=== PATIENT | male | born 1970 | race Caucasian/White ===

== ENCOUNTER → 2018-10-10 13:02 | Oncology outpatient (ONC) | payer MEDICARE, MEDICAID, SELFPAY ==
--- OUTSIDE RECORDS SUMMARY | 2018-10-04 15:38 | XMS_ITS | Referral Summary ---
:1970 Author Organization Formerly [facility] Address [address] [place] [address] Care Team Providers Name Role Phone Aileen Tapia Primary Care Provider Unavailable Reason for Referral Consultation (Routine) Status Reason Specialty Diagnoses / Referred By Referred To Procedures Contact Contact Authorized Specialty Oncology Diagnoses [facility] [address] [facility] [id number] [place], Phone: [place] [phone] Encounter Details Date Type Department Care Team Description 09/19/2018 Orders Only [facility] Aileen Tapia PA Polycythemia (Primary Clinics Family [address]) Medicine [address] [id number] Allergies No Known Allergiesas of this encounter Medications Prescription Sig. Disp. Refills Start Date End Date Status sulfamethoxazole-trime Take 1 tablet by 20 tablet 0 09/17/2018 09/27/2018 Active thoprim (BACTRIM mouth 2 (two) DS,SEPTRA DS) 800-160 times a day for mg 10 days as of this encounter Active Problems Problem Noted Date Loose body in elbow joint 02/11/2018 Cubital tunnel syndrome on left 02/11/2018 Lumbar radiculopathy 12/19/2016 Hand paresthesia 10/21/2015 Cervical radiculopathy 01/28/2014 Weakness 02/20/2013 Social History Tobacco Use Types Packs/Day Years Used Date Current Every Day Smoker 0.5 Smokeless Tobacco: Never Used Alcohol Use Drinks/Week oz/Week Comments Yes 2-3 drinks weekly Sex Assigned at Date Recorded Not on file as of this encounter Progress Notes Aileen Tapia PA - 09/19/2018 12:30 PM PSTPatient had wanted to be seen in [place]. Sent in referral for patient to be seen at [facility].in this encounter Plan of Treatment Scheduled Referrals Name Priority Associated Diagnoses Order Schedule XTRNL Referral to Oncology Routine Polycythemia Ordered: 09/19/2018 as of this encounter Visit Diagnoses Diagnosis Polycythemia - Primary Polycythemia, secondary Insurance Payer Benefit Plan / Group Subscriber ID Type Phone Address MEDICARE MEDICARE PART A AND B xxxxxxxxxx as of this encounter
--- NOTE | 2018-10-10 13:52 | ONC.CONS ---
History of Present Illness - Data of Consult Patient: new to practice Consult date: 10/10/18 Requesting Physician: Aileen Tapia PA-C Primary Care Provider: Aileen Tapia PA-C - Consult Narrative Reason for consult: Erythrocytosis Narrative: Sebastian Mercedes is a 48 year old male. He is disabled due to cervical rediculopathy. He also has lots of other medical problems including loose body in elbow joint, cubital tunnel syndrome on the left, lumbar radiculopathy. Patient admitted that he is a long-term smoker and is still smoking. He used to smoke 1 pack per day and for the past 6 months he has cut down to about half a pack per day. In addition patient has self-diagnosed himself as having sleep apnea syndrome. He said during the night, he sometimes wakes up gasping for air. Patient was found to have persistent erythrocytosis and was referred to [facility] for further evaluation. Patient admitted that he has been under lot of stress recently since his mother and grandfather because of cancer. He said his immediate family are all gone except his sister. Upon review of the medical records, patient was found to have an elevated red blood cell count starting November of 2017. His hemoglobin level has been fluctuating between 17 to 19.3, hematocrit level between 47.8-55.4. Patient's white blood cell counts and platelet counts have been normal except during episodes of gangrenous cholecystitis requiring urgent surgery in November of 2017. Recently patient has complained of some testicular pain presumably due to epididymitis and was treated with a brief course of antibiotics. Patient also complains of epigastric pain which he said has been present since after the surgery. He denies any nausea or vomiting. He denies any diarrhea or constipation. He denies any itching skin. He denies petechiae or bleeding events. On 09/17/2018, WBC 7.7, HGB 17.7, HCT 52.1, PLT 202, AST 50, ALT 76. Patient reports pain?: Yes Home Medications and Allergies Home Medications Medication Instructions Recorded Confirmed Type hydrocodone-acetaminophen 1 tab PO Q6H PRN 10/10/18 10/10/18 History Allergies Allergy/AdvReac Type Severity Reaction Status Date / Time No Known Drug Allergies Allergy Verified 10/10/18 15:24 Medical History - Medical, Surgical, Family History Medical History: Medical History (Last Updated 10/10/18 @ 14:10 by Vineet Ledesma MD) Smoking Surgical History: Surgical History (Last Updated 10/10/18 @ 15:21 by Vineet Ledesma MD) History of cholecystectomy - Social History Smoking Status: Current every day smoker Substance Use Type: marijuana Alcohol Intake: current Review of Systems All systems PM: reviewed and no additional remarkable complaints except as stated Exam Vital signs: Last Vital Signs Temp 98.8 F 10/10/18 13:57 Pulse 78 10/10/18 13:57 Resp 18 10/10/18 13:57 BP 124/51 L 10/10/18 13:57 Pulse Ox 96 10/10/18 13:57 ECOG 1 Narrative: Constitutional: obese, NAD, pleasant, and cooperative. HEENT: NCAT, EOMI, PERRLA, anicteric sclera, no hearing difficulty; Oral mucus membrane moist and without ulcers. Neck: Supple, symmetrical, and tracheal midline; No palpable thyromegaly and no palpable lymph nodes. Respiratory: No use of accessory muscles. Clear to auscultation, and no wheezes or rales or rubs. Cardiovascular: Regular rate and rhythm, S1 and S2 normal, no murmurs gallops or rubs. No JVD. No pitting edema of lower extremities. Abdomen: Soft, nontender, non-distended, bowel sounds normal, no palpable organomegaly, no hernia, no palpable masses. Lower extremities: No palpable pedal edema. Lymphatic: no palpable lymph nodes in the neck, axillae, or groins. Musculoskeletal: normal gait and station, no clubbing, no cyanosis, no pitting edema. Skin: no rashes, no ulcers, no petechiae Neurological: Awake and alert and oriented x3. CN II-XII grossly intact. No focal motor or sensory deficit. Psychiatric: Good judgment, good insight, normal affect, normal thought process, cooperative, no depression, no anxiety. Results - Labs Pending. Assessment and Plan (1) Erythrocytosis Patient has persistent mild erythrocytosis. Patient has a prolonged history of smoking and is still actively smoking. He is obese and most likely has sleep apnea problem. He wakes up at night often gasping for air. All above suggests that the patient may have secondary erythrocytosis as a result of chronic hypoxemia. In my opinion, primary hematological disorder is unlikely, but needs to be excluded, including P. Vera, and hemachromatosis etc. Plan: 1. CBC, CMP, Fe panel, Ferritin, Epo, TSH 2. RTC in one month
[2018-10-10 13:57] VITALS: BP 124/51; PULSE 78; RESP 18; TEMP 37.1; O2SAT 96
--- NOTE | 2018-10-10 14:39 | ONC.NAV ---
Description: New Pt Intro Activity: Met with pt to introduce myself as the Pt Zhang/PUNCH HAND, offer services card, and establish initial rapport. Pt is here today for his initial pt consultation visit with Dr. Ledesma due to abnormal labs drawn at his PCP's office. Pt presents as very agitated, stating immediately that Dr. Ledesma better be in here in 2-minutes, or I'm leaving. He proceeded to share that this last year his mother, grandmother and father all . He also had an emergency gall bladder surgery and had surgery for a broken elbow, all which happened around the same timing as the of his mother. After listening to his story, it became very apparent that pt was very fearful about the results of his blood tests, and was convinced that he may have cancer. He feels extremely angry, and in a final motion of exasperation, he shared that I haven't even buried any of them yet. PUNCH HAND provided a calming and attentive presence, reassuring him that we will be very honest with him and direct, as he is requesting. He was fearful of being lied to. He states that he is not sleeping, and is struggling to sleep due to waking up at times gasping and feeling that he is not able to breathe. As we were talking, Dr. Ledesma did come in and was ready for his provider appointment. This PUNCH HAND did go get pt a sandwich, as he had not eaten all day and felt this may be contributing to his feeling more intensely emotional and reactive. He was calming down by the time Dr. Ledesma came in. No immediate needs were identified for support at this time. Plan: Monitor for treatment plan and f/u needs.
--- NOTE | 2018-11-11 08:29 | ONC.SCHED ---
pt called to cancel appointment. He was absolutely rude and vulgar. Wanted his results read over the phone since he couldn't come in due to snow. I let him know I would be happy to ask Dr. Ledesma but could not promise he would do this as giving results over the phone was not clinic practice. The patient proceeded to yell at me wouldn't let me speak and finally asked that I fax the results over to his PCP Janny Tapia at [facility]. Called and spoke with Gladys and let her know I would be faxing his labs and to please call him. She said she would have someone do that.
--- NOTE | 2018-11-11 11:02 | ONC.SCHED ---
Patient called again and went off on another tangent. Patient called stating that Janny Tapia didn't have results. I let him know I spoke to Nadiya over there and verified fax number and let them know they were coming, I also had fax confirmation. Patient would not let me speak at all. Pavithra was up here at the time and could hear him continuing to talk without letting me get a word in. I finally interrupted him and told him I would take the results back to Dr. Ledesma but again could not guarantee a call back. Patient went off again to the point I finally told him I can't help him if he doesn't stop talking (in the most polite way I could).
--- NOTE | 2018-11-11 15:01 | ONC.NAV ---
Description: QMM-Difficult Patient Behavior Activity: Pt called several people in this clinic, was behaving very aggressively, emotionally volatile and irrational. KENO WRITER/RUNNER completed a QMM. Please direct all complaint phone calls to Gisselle Ayoub, Risk Management, should he call back.
--- NOTE | 2018-11-12 15:45 | PC.NURSE ---
Reviewed lab work from labs drawn 10/29. Pt was supposed to come to appt on 11/11 but was unable to make it due to snow and pt states I just have not been feeling well at all. Informed labs look unchanged from his previous labs but that he should still follow up with Dr Ledesma so Dr Ledesma can determine if he wants any further diagnostic testing done and/or come up with a plan. Offered to transfer pt to schedule an appt. Informed him it's not urgent and even next week would be fine. Pt states he will just call scheduling himself and make the appt.
== END ==
PROVIDERS: PCP Physician Assistant; Visit Provider Internal Medicine Hematology & Oncology
DX: D75.1 Secondary polycythemia (principal); E66.9 Obesity, unspecified; F17.210 Nicotine dependence, cigarettes, uncomplicated; M54.12 Radiculopathy, cervical region
CPT/HCPCS: 99204; 99214

== ENCOUNTER → 2018-10-29 15:03 | Outpatient (CLI) | payer MEDICARE, MEDICAID, SELFPAY ==
--- NOTE | 2018-10-29 15:12 | DI.MRI.S_ITS ---
PROCEDURE: MR CERVICAL SPINE WO CON INDICATIONS: SPINAL STENOSIS TECHNIQUE: Noncontrast sagittal T1 spin echo and T2 fast spin echo, sagittal STIR, foraminal oblique sagittal T2 fast spin echo, and axial gradient echo or T2 fast spin echo through the cervical spine. COMPARISON: [facility], MR, C-SPINE W&WO CONTRAST, 03/10/2013, 15:41. [facility], MR, C-SPINE WITHOUT CONTRAST, 01/01/2017, 13:07. FINDINGS: Image quality: Excellent. Alignment and Curvature: There is preserved bony alignment. Bone Marrow: Marrow demonstrates normal overall signal. Spinal Cord: Visualized spinal cord has normal size and signal. No cerebellar tonsillar herniation. Paraspinous Soft Tissues: No paravertebral masses. Prevertebral soft tissues are normal in thickness. C2-C3: Normal appearance. C3-C4: Preserved disc signal and disc height. There is minimal uncovertebral and facet joint arthropathy. No spinal canal narrowing. There is minimal right neuroforaminal narrowing. C4-C5: Minimal disc bulge with mild uncovertebral and facet joint arthropathy. There is associated minimal spinal canal narrowing with minimal bilateral neuroforaminal narrowing. C5-C6: Small posterior disc osteophyte complex with associated mild spinal canal narrowing. There is mild uncovertebral and facet joint arthropathy contributing to moderate bilateral neuroforaminal narrowing. The findings are similar to the prior study. C6-C7: Preserved disc signal and disc height. There is minimal uncovertebral and facet joint arthropathy. No spinal canal narrowing. There is minimal bilateral neuroforaminal narrowing. C7-T1: Normal appearance. IMPRESSION: 1. Multilevel degenerative changes redemonstrated most prominent at C5-C6 where there is mild spinal canal narrowing with moderate bilateral neuroforaminal narrowing. Findings are similar to the prior study. Dictated by: Blair Parker M.D. on 10/30/2018 at 10:52 Approved by: Blair Parker M.D. on 10/30/2018 at 11:02
[2018-10-29 15:46] LABS: Add Manual Diff / Slide Review NO; Basophils Absolute Auto 100 /uL (0-100); Basophils Percent Auto 0.9 % (0-2); Eosinophils Absolute Auto 300 /uL (0-450); Eosinophils Percent Auto 2.7 % (2-4); Hematocrit 51.2 % (41-53); Hemoglobin 17.2 g/dL (13.5-17.5); Lymphocytes Absolute Auto 3300 /uL (1100-4500); Lymphocytes Percent Auto 33.3 % (25-40); Mean Corpuscular HGB Conc 33.6 % (30-36); Mean Corpuscular Hemoglobin 32.1 PG (26-34); Mean Corpuscular Volume 95.6 fL (80-100); Monocytes Absolute Auto 800 /uL (0-900); Monocytes Percent Auto 8.3 % (3-14); Neutrophils Absolute Auto 5400 /uL (1500-7000); Neutrophils Percent Auto 54.8 % (50-75); Platelet Count 217 X10^3/uL (150-400); Red Blood Cell Count 5.36 X10^6/uL (4.5-5.9); Red Cell Distribution Width 12.3 % (11.6-14.8); White Blood Cell Count 9.9 X10^3/uL (4.5-11.0)
[2018-10-29 16:52] LABS: HEMOLYSIS < 15 (0-50); Iron 127 ug/dL (49-181)
[2018-10-29 17:03] LABS: Percent Iron Saturation 33 % (20-50); Total Iron Binding Capacity 390 ug/dL (261-462); Transferrin 327 mg/dL (206-381)
[2018-10-29 17:10] LABS: Alanine Aminotransferase 47 IU/L (21-72); Albumin 4.7 g/dL (3.5-5.0); Albumin Globulin Ratio 1.7 (1.0-2.8); Alkaline Phosphatase 55 U/L (38-126); Aspartate Aminotransferase 30 IU/L (17-59); BUN Creatinine Ratio 22.9 (6-22); Bilirubin Total 0.6 mg/dL (0.2-1.3); Blood Urea Nitrogen 16 mg/dL (9-20); Calcium 9.7 mg/dL (8.4-10.2); Carbon Dioxide 25 mmol/L (22-32); Chloride 104 mmol/L (98-107); Estimated Glomerular Filt Rate > 60.0 mL/min (>60); Globulin 2.8 g/dL (1.7-4.1); Glucose 95 mg/dL (70-100); HEMOLYSIS < 15 (0-50); Potassium 4.1 mmol/L (3.4-5.1); Sodium 140 mmol/L (137-145); Total Protein 7.5 g/dL (6.3-8.2)
== END ==
PROVIDERS: PCP Physician Assistant; Referring Provider Internal Medicine Hematology & Oncology; Visit Provider Physician Assistant
DX: M48.02 Spinal stenosis, cervical region (principal); M47.812 Spondylosis without myelopathy or radiculopathy, cervical region; D75.1 Secondary polycythemia
CPT/HCPCS: 36415; 72141; 80053; 82728; 83540; 83550; 85025

== ENCOUNTER → 2018-11-18 11:27 | Outpatient (CLI) | payer MEDICARE, MEDICAID, SELFPAY ==
--- NOTE | 2018-11-18 | DI.CT.S_ITS ---
PROCEDURE: CT CHEST WO CON INDICATIONS: PULMONARY NODULE TECHNIQUE: Noncontrast 2.0-2.5 mm thick sections acquired from the pulmonary apices to the posterior costophrenic angles. 7 mm thick coronal and sagittal MIP reformats were then acquired. A low radiation dose technique was utilized. COMPARISON: [facility], CT, PE STUDY (CTA CHEST), 11/15/2016, 15:47. [facility], CT, ABDOMEN/PELVIS WITH CONTRAST, 12/17/2017, 19:26. FINDINGS: Image quality: Diagnostic, given the low radiation dose technique. Lungs and pleura: The 7 mm nodule in the right middle lobe along the minor fissure appears unchanged (series 3 image 87). No pulmonary infiltrate or pleural effusion. Mediastinum: Heart size is normal. No pericardial effusion. There is coronary artery calcification. No mediastinal adenopathy by size criteria. Thoracic aorta and central pulmonary arteries are normal in size. Esophagus is normal in caliber. No hiatal hernia. Bones and chest wall: No suspicious bony lesions. No vertebral body compression fractures. No axillary or supraclavicular adenopathy by size criteria. Thyroid gland is normal. Abdomen: Visualized upper abdomen solid organs and bowel loops appear normal in the absence of contrast. IMPRESSION: 1. Stable subcentimeter nodule in the right middle lobe seen as 11/15/2016, compatible with a benign nodule. No additional followup is recommended. 2. Fleischner Society criteria for SOLID lung nodule followup. Nodule size (mm)Low-risk patientHigh-risk patient<6 (single or multiple)No routine followup.Optional CT at 12 months. 6-8 (single or multiple)CT at 6-12 months, then optional CT at 18-24 mo.CT at 6-12 months, then CT at 18-24 months. >8 (single)CT at 3 months, PET-CT, or biopsy. Same as for low-risk pts. >8 (multiple)CT at 3-6 months, then optional CT at 18-24 mo.CT at 3-6 months, then CT at 18-24 months. Recommendations do not apply to lung cancer screening, patients with immunosuppression, or patients with known primary cancer. Dictated by: Brooks Rasheed M.D. on 11/18/2018 at 15:28 Approved by: Brooks Rasheed M.D. on 11/18/2018 at 15:33
== END ==
PROVIDERS: PCP Physician Assistant; Visit Provider Physician Assistant
DX: R91.1 Solitary pulmonary nodule (principal)
CPT/HCPCS: 71250

== ENCOUNTER → 2019-03-13 11:48 | Outpatient (CLI) | payer MEDICARE, MEDICAID, SELFPAY ==
[2019-03-13 12:10] LABS: Add Manual Diff / Slide Review NO; Basophils Absolute Auto 100 /uL (0-100); Basophils Percent Auto 1.2 % (0-2); Eosinophils Absolute Auto 200 /uL (0-450); Eosinophils Percent Auto 4.3 % (2-4); Hematocrit 49.1 % (41-53); Lymphocytes Absolute Auto 2000 /uL (1100-4500); Lymphocytes Percent Auto 37.6 % (25-40); Mean Corpuscular HGB Conc 34.6 % (30-36); Mean Corpuscular Hemoglobin 32.1 PG (26-34); Mean Corpuscular Volume 92.7 fL (80-100); Monocytes Absolute Auto 600 /uL (0-900); Monocytes Percent Auto 10.6 % (3-14); Neutrophils Absolute Auto 2500 /uL (1500-7000); Neutrophils Percent Auto 46.3 % (50-75); Platelet Count 215 X10^3/uL (150-400); Red Cell Distribution Width 12.9 % (11.6-14.8); White Blood Cell Count 5.4 X10^3/uL (4.5-11.0)
[2019-03-13 12:43] LABS: HEMOLYSIS < 15 (0-50); Iron 114 ug/dL (49-181)
[2019-03-13 12:54] LABS: Percent Iron Saturation 30 % (20-50); Total Iron Binding Capacity 379 ug/dL (261-462); Transferrin 299 mg/dL (206-381)
[2019-03-13 14:49] LABS: Alanine Aminotransferase 36 IU/L (21-72); Albumin 4.4 g/dL (3.5-5.0); Albumin Globulin Ratio 1.6 (1.0-2.8); Alkaline Phosphatase 48 U/L (38-126); Aspartate Aminotransferase 28 IU/L (17-59); Bilirubin Total 0.6 mg/dL (0.2-1.3); Blood Urea Nitrogen 14 mg/dL (9-20); Calcium 9.7 mg/dL (8.4-10.2); Carbon Dioxide 24 mmol/L (22-32); Chloride 107 mmol/L (98-107); Estimated Glomerular Filt Rate > 60.0 mL/min (>60); Globulin 2.7 g/dL (1.7-4.1); Glucose 102 mg/dL (70-100); HEMOLYSIS 16 (0-50); Potassium 4.2 mmol/L (3.4-5.1); Sodium 139 mmol/L (137-145); Total Protein 7.1 g/dL (6.3-8.2)
== END ==
PROVIDERS: PCP Physician Assistant; Visit Provider Physician Assistant
DX: R79.89 Other specified abnormal findings of blood chemistry (principal); D58.2 Other hemoglobinopathies; R71.8 Other abnormality of red blood cells; D75.1 Secondary polycythemia
CPT/HCPCS: 36415; 80053; 82728; 83540; 83550; 85025

== ENCOUNTER → 2019-06-27 08:21 | Outpatient (CLI) | payer MEDICARE, MEDICAID, SELFPAY ==
[2019-06-27 09:56] LABS: Add Manual Diff / Slide Review NO; Basophils Absolute Auto 100 /uL (0-100); Basophils Percent Auto 0.9 % (0-2); Eosinophils Absolute Auto 200 /uL (0-450); Eosinophils Percent Auto 2.6 % (2-4); Hematocrit 49.4 % (41-53); Lymphocytes Absolute Auto 3600 /uL (1100-4500); Lymphocytes Percent Auto 38.3 % (25-40); Mean Corpuscular HGB Conc 34.5 % (30-36); Mean Corpuscular Hemoglobin 32.2 PG (26-34); Mean Corpuscular Volume 93.4 fL (80-100); Monocytes Absolute Auto 800 /uL (0-900); Monocytes Percent Auto 8.7 % (3-14); Neutrophils Absolute Auto 4700 /uL (1500-7000); Neutrophils Percent Auto 49.5 % (50-75); Platelet Count 222 X10^3/uL (150-400); Red Blood Cell Count 5.29 X10^6/uL (4.5-5.9); Red Cell Distribution Width 13.1 % (11.6-14.8); White Blood Cell Count 9.5 X10^3/uL (4.5-11.0)
[2019-06-27 10:22] LABS: Alanine Aminotransferase 35 IU/L (21-72); Albumin 4.7 g/dL (3.5-5.0); Albumin Globulin Ratio 1.7 (1.0-2.8); Alkaline Phosphatase 58 U/L (38-126); Amylase 71 U/L (30-110); Aspartate Aminotransferase 31 IU/L (17-59); BUN Creatinine Ratio 25.7 (6-22); Bilirubin Total 0.6 mg/dL (0.2-1.3); Blood Urea Nitrogen 18 mg/dL (9-20); Calcium 9.7 mg/dL (8.4-10.2); Carbon Dioxide 22 mmol/L (22-32); Chloride 105 mmol/L (98-107); Estimated Glomerular Filt Rate > 60.0 mL/min (>60); Globulin 2.8 g/dL (1.7-4.1); Glucose 134 mg/dL (70-100); HEMOLYSIS 17 (0-50); Lipase 328 U/L (23-300); Potassium 3.9 mmol/L (3.4-5.1); Sodium 139 mmol/L (137-145); Total Protein 7.5 g/dL (6.3-8.2)
== END ==
PROVIDERS: PCP Physician Assistant; Visit Provider Physician Assistant
DX: R10.11 Right upper quadrant pain (principal); N20.0 Calculus of kidney
CPT/HCPCS: 36415; 80053; 82150; 83690; 85025

== ENCOUNTER → 2019-07-03 07:40 | Outpatient (CLI) | payer MEDICARE, MEDICAID, SELFPAY ==
--- NOTE | 2019-07-03 | DI.US.S_ITS ---
PROCEDURE: US ABDOMEN COMPLETE INDICATIONS: RIGHT UPPER QUADRANT PAIN; HISTORY KIDNEY STONES TECHNIQUE: Real-time scanning was performed of the abdominal and retroperitoneal organs, with image documentation. COMPARISON: CT [facility] 10/26/2014. [facility], US, ABDOMEN COMPLETE, 02/28/2007, 12:31. FINDINGS: Liver: Prominent size. Diffusely mildly heterogeneous. Mildly increased in echogenicity. No focal lesion seen. Gallbladder: Surgically absent. Biliary ducts: Intrahepatic bile ducts are non-dilated. Extrahepatic bile duct caliber measures 8 mm. Normal is 6-7 mm or less in diameter, or 10 mm or less post-cholecystectomy. Pancreas: Visualized portions of the pancreas are sonographically normal. The tail was not well-seen. Spleen: Spleen is normal in size and homogeneous in echotexture. Measures 10.8 centers. Kidneys: Kidneys are normal in size and echotexture. Right kidney measures 12.2 cm long; left kidney measures 14.8 cm long. No hydronephrosis or nephrolithiasis. No solid masses. 2 simple cysts in the right kidney measuring up 1.8 cm and 1.7 cm. Aorta: Visualized aorta is normal in caliber at less than 3 cm. Iliacs: Proximal common iliac arteries are normal in caliber at less than 2.5 cm. IVC: Intrahepatic inferior vena cava is patent. Miscellaneous: No free abdominal fluid. Urinary bladder is unremarkable. Prevoid volume of 110 cc. Postvoid residual 0 cc. Bilateral ureteral jets seen. IMPRESSION: 1. No hydronephrosis. No kidney stones seen. 2. Normal urinary bladder. No postvoid residual. 3. Heterogeneous liver parenchyma could be seen in hepatocellular disease or steatosis. 4. No free fluid. Dictated by: Ruperto Dallas M.D. on 07/03/2019 at 10:18 Approved by: Ruperto Dallas M.D. on 07/03/2019 at 10:25
== END ==
PROVIDERS: PCP Physician Assistant; Visit Provider Physician Assistant
DX: R10.11 Right upper quadrant pain (principal); N28.1 Cyst of kidney, acquired; Z87.442 Personal history of urinary calculi
CPT/HCPCS: 76700

== ENCOUNTER 2019-11-01 10:12 | Emergency (ER) | payer MEDICARE, MEDICAID, SELFPAY ==
[2019-11-01 10:15] VITALS: BP 161/94; PULSE 167; RESP 20; O2SAT 96; BMI 29.5
[2019-11-01 10:20] VITALS: BP 161/94; PULSE 172; RESP 14; TEMP 36.3; O2SAT 97
--- NOTE | 2019-11-01 10:35 | ED_ITS ---
HPI - Arrhythmia/Palpitations General Chief Complaint: Arrhythmia/Palpitations Stated Complaint: states irregular heart beat Time Seen by Provider: 11/01/19 10:22 Source: patient Mode of arrival: Ambulatory Limitations: no limitations History of Present Illness HPI narrative: 49-year-old male here for evaluation of palpitations. Patient states that his symptoms started approximately 1.5 hours ago. He states that he was sitting on the couch at the time. Had just taken a drink and suddenly had the palpitations. States he does not feel well. No fevers. No chest pain. No lightheadedness. States that he potentially has had this type of symptom in the past but they resolved on their own. No prior history of atrial fibrillation. No abdominal pain. Related Data Home Medications Medication Instructions Recorded Confirmed hydrocodone-acetaminophen 1 tab PO Q6H PRN 10/10/18 10/10/18 Allergies Allergy/AdvReac Type Severity Reaction Status Date / Time No Known Drug Allergies Allergy Verified 10/10/18 15:24 Review of Systems Constitutional Constitutional: Denies fever(s) and Denies headache(s) ENT Ears, Nose, Mouth, and Throat: Denies headache(s) Cardiovascular Cardiovascular: Denies chest pain, Reports rapid heart rate, Denies leg edema, Denies lightheadedness, Reports palpitations and Denies dyspnea Respiratory Respiratory: Denies dyspnea Gastrointestinal Gastrointestinal: Denies abdominal pain, Denies nausea and Denies vomiting Genitourinary Genitourinary: Denies dysuria Musculoskeletal Musculoskeletal: Denies myalgias and Denies arthralgias Integumentary/Breasts Skin/Breast: Denies lesions and Denies rash Neurologic Neurologic: Denies behavioral changes and Denies headache(s) Psychiatric Psychiatric: Denies behavioral changes Endocrine Endocrine: Reports palpitations Hematologic/Lymphatic Hematologic/Lymphatic: Denies easy bleeding and Denies easy bruising Patient History Medical History Smoking (Acute) Surgical History (Updated 10/10/18 @ 15:21 by Vineet Ledesma MD) History of cholecystectomy (Acute) Social History Smoking Status: Current every day smoker alcohol intake: current substance use type: marijuana Smoking Status: Current every day smoker alcohol intake frequency: 0-2 drinks per day Substance Use Type: does not use Exam Initial Vital Signs Initial Vital Signs: Vital Signs Pulse Rate 167 H 11/01/19 10:15 Respiratory Rate 20 11/01/19 10:15 Blood Pressure 161/94 H 11/01/19 10:15 Pulse Oximetry 96 11/01/19 10:15 Const General: cooperative, comfortable, well developed and well groomed Limitations: mental status not altered HENMT Head: normal to inspection and normocephalic Resp Effort & Inspection: normal respiratory effort Auscultation: clear to auscultation bilaterally Cardio Rate: tachycardic Rhythm: abnormal rhythm Pulses: radial pulses present GI Inspection: non-distended Palpation: soft Skin Lesions: no lesions Rashes: no rashes Neuro General: alert, awake and oriented x3 Cognition: normal cognition Speech: speech normal Gait: normal gait Extrem General: normal to inspection and capillary refill normal Psych Appearance: grossly normal and well kempt Scores GCS [place] coma scale eye opening: Spontaneous [place] coma scale verbal response: Orientated [place] coma scale motor response: Obey commands [place] coma scale total score: 15 Course Orders Ordered: ED Orders 11/01/19 10:23 Complete Blood Count AUTO DIFF Stat Comprehensive Metabolic Panel Stat Partial Thromboplastin Time Stat Prothrombin Time INR Stat EKG-12 Lead Stat 11/01/19 10:36 RT Consult Eval and Treat Now 11/01/19 11:00 EKG-12 Lead Stat Sodium Chloride (Normal Saline 0.9%) 1,000 mls @ 125 mls/hr IV CONT STARLA Last Admin: 11/01/19 10:57 Dose: 125 mls/hr Documented by: NINI Discontinued Medications Fentanyl (Sublimaze) 50 mcg IV NOW ONE Stop: 11/01/19 10:36 Last Admin: 11/01/19 11:31 Dose: Not Given Documented by: BOB Propofol (Diprivan) 100 mg IV NOW ONE Stop: 11/01/19 10:36 Last Admin: 11/01/19 11:31 Dose: Not Given Documented by: BOB Vital Signs Vital signs: Vital Signs - 8 hr 11/01/19 10:15 11/01/19 10:20 11/01/19 10:37 Temperature 97.3 F L Pulse Rate 167 H 172 H 176 H Respiratory Rate 20 14 20 Blood Pressure 161/94 H Blood Pressure [Left Arm] 161/94 H 133/106 H Pulse Oximetry 96 97 96 11/01/19 11:20 Temperature Pulse Rate 83 Respiratory Rate 18 Blood Pressure Blood Pressure [Left Arm] 137/94 H Pulse Oximetry 95 MDM - Arrhythmia/Palpitations Lab Data Attestation: I reviewed the patient's lab results. Result diagrams: 11/01/19 10:23 11/01/19 10:23 Labs: Lab Results 11/01/19 11/01/19 11/01/19 Range/Units 10:23 10:23 10:23 WBC 8.2 (4.5-11.0) X10^3/uL RBC 5.50 (4.5-5.9) X10^6/uL Hgb 17.7 H (13.5-17.5) g/dL Hct 51.0 (41-53) % MCV 92.7 (80-100) fL MCH 32.2 (26-34) PG MCHC 34.7 (30-36) % RDW 12.9 (11.6-14.8) % Plt Count 204 (150-400) X10^3/uL Neut % (Auto) 42.2 L (50-75) % Lymph % (Auto) 43.1 H (25-40) % [place] % (Auto) 10.1 (3-14) % Eos % (Auto) 3.5 (2-4) % Baso % (Auto) 1.1 (0-2) % Neut # (Auto) 3500 (5349-0048) /uL Lymph # (Auto) 3500 (3500-6955) /uL [place] # (Auto) 800 (0-900) /uL Eos # (Auto) 300 (0-450) /uL Baso # (Auto) 100 (0-100) /uL PT 10.2 (10.1-12.7) SECONDS INR 0.9 (0.9-1.3) APTT 30 (26.4-36.2) SECONDS Sodium 137 (137-145) mmol/L Potassium 3.7 (3.4-5.1) mmol/L Chloride 106 (98-107) mmol/L Carbon Dioxide 19 L (22-32) mmol/L BUN 15 (9-20) mg/dL Creatinine 0.60 L (0.66-1.25) mg/dL Estimated GFR > 60.0 (>60) mL/min BUN/Creatinine Ratio 25.0 H (6-22) Glucose 132 H (70-100) mg/dL Calcium 9.5 (8.4-10.2) mg/dL Total Bilirubin 0.4 (0.2-1.3) mg/dL AST 38 (17-59) IU/L ALT 38 (<50) IU/L Alkaline Phosphatase 59 (38-126) U/L Total Protein 7.7 (6.3-8.2) g/dL Albumin 4.5 (3.5-5.0) g/dL Globulin 3.2 (1.7-4.1) g/dL Albumin/Globulin Ratio 1.4 (1.0-2.8) ECG Data Attestation: I personally reviewed and interpreted this ECG as follows: Prior ECG tracings: not available for review Interpretation: EKG upon arrival Atrial fibrillation Ventricular rate is 69 Normal axis Normal QRS Normal QTC Minimal ST depressions EKG timed 1102 hours Sinus rhythm Ventricular rate 86 Left axis deviation Normal QRS Normal QTC No ST T wave changes MDM Narrative Medical decision making narrative: Patient is AFib with RVR. Not hypotensive however symptomatic. Symptoms started approximately 2 hours ago. Had a discu ssion with him regarding options to include rate versus rhythm control. He opted on rhythm control. Consent was signed. Just prior to cardioversion patient converted on his own. Repeat EKG shows sinus rhythm. I do suspect that he has paroxysmal AFib. He states that he has had very similar symptoms of this in the past that has resolved on its own. He does have a primary doctor. We did discuss return precautions. He will follow-up with his primary doctor to discuss further workup to include a Holter monitor and/or cardiology referral. Patient expressed understanding and agreement with plan. Discharge Plan Departure Patient Disposition: Home Clinical Impression: Atrial fibrillation Qualifiers: Atrial fibrillation type: paroxysmal Qualified Code(s): I48.0 - Paroxysmal atrial fibrillation Instructions: DI for Atrial Fibrillation Activity Restrictions/Additional Instructions: Recommend that you talk with your primary provider about the indications for a Holter monitor and/or a referral to see Cardiology. Return to the emergency department for any new or worsening symptoms like we discussed. Prescriptions: No Action hydrocodone-acetaminophen tablet 1 tab PO Q6H PRN (Reason: Pain, Moderate) RF: 0 Referrals: Aileen Tapia PA-C [Primary Care Provider] -
[2019-11-01 10:37] VITALS: BP 133/106; PULSE 176; RESP 20; O2SAT 96
[2019-11-01 10:39] LABS: Add Manual Diff / Slide Review NO; Basophils Absolute Auto 100 /uL (0-100); Basophils Percent Auto 1.1 % (0-2); Eosinophils Absolute Auto 300 /uL (0-450); Eosinophils Percent Auto 3.5 % (2-4); Hemoglobin 17.7 g/dL (13.5-17.5); Lymphocytes Absolute Auto 3500 /uL (1100-4500); Lymphocytes Percent Auto 43.1 % (25-40); Mean Corpuscular HGB Conc 34.7 % (30-36); Mean Corpuscular Hemoglobin 32.2 PG (26-34); Mean Corpuscular Volume 92.7 fL (80-100); Monocytes Absolute Auto 800 /uL (0-900); Monocytes Percent Auto 10.1 % (3-14); Neutrophils Absolute Auto 3500 /uL (1500-7000); Neutrophils Percent Auto 42.2 % (50-75); Platelet Count 204 X10^3/uL (150-400); Red Cell Distribution Width 12.9 % (11.6-14.8); White Blood Cell Count 8.2 X10^3/uL (4.5-11.0)
[2019-11-01 10:48] LABS: PTT Partial Thromboplastin Tim 30 SECONDS (26.4-36.2)
[2019-11-01 10:52] LABS: INR 0.9 (0.9-1.3); Prothrombin Time 10.2 SECONDS (10.1-12.7)
[2019-11-01] MEDS: SODIUM CHLORIDE 0.9% 1,000 ML 125 ML IV (10:57)
[2019-11-01 11:06] LABS: Alanine Aminotransferase 38 IU/L (<50); Albumin 4.5 g/dL (3.5-5.0); Albumin Globulin Ratio 1.4 (1.0-2.8); Alkaline Phosphatase 59 U/L (38-126); Aspartate Aminotransferase 38 IU/L (17-59); Bilirubin Total 0.4 mg/dL (0.2-1.3); Blood Urea Nitrogen 15 mg/dL (9-20); Calcium 9.5 mg/dL (8.4-10.2); Carbon Dioxide 19 mmol/L (22-32); Chloride 106 mmol/L (98-107); Estimated Glomerular Filt Rate > 60.0 mL/min (>60); Globulin 3.2 g/dL (1.7-4.1); Glucose 132 mg/dL (70-100); HEMOLYSIS 25 (0-50); Potassium 3.7 mmol/L (3.4-5.1); Sodium 137 mmol/L (137-145); Total Protein 7.7 g/dL (6.3-8.2)
--- NOTE | 2019-11-01 11:14 | PC.NURSE ---
pt converted to a NSR, repeat EKG done. VSS. Dr. Garcia at bedside.
[2019-11-01 11:20] VITALS: BP 137/94; PULSE 83; RESP 18; O2SAT 95
[2019-11-01 12:01] VITALS: BP 125/89; PULSE 84; RESP 22; O2SAT 96
== END 2019-11-01 12:01 | disposition home or self-care (01) ==
PROVIDERS: Emergency Provider Emergency Medicine; PCP Physician Assistant
DX: I48.0 Paroxysmal atrial fibrillation (principal)
CPT/HCPCS: 36415; 80053; 85025; 85610; 85730; 93005; 96360; 99284; 99285

== ENCOUNTER 2019-12-18 01:58 | Emergency (ER) | payer MEDICARE, MEDICAID, SELFPAY ==
[2019-12-18 02:08] VITALS: BP 156/101; PULSE 76; RESP 18; TEMP 37.1; O2SAT 97
--- NOTE | 2019-12-18 02:12 | ED.ARRPALP ---
HPI - Arrhythmia/Palpitations General Chief Complaint: Arrhythmia/Palpitations Stated Complaint: pain in side of chest and arm/heart issues Time Seen by Provider: 12/18/19 02:12 Source: patient and old records reviewed Mode of arrival: Ambulatory Limitations: no limitations History of Present Illness HPI narrative: This is a 49-year-old male comes in with complaint of palpitations. Having discomfort in his left chest patient states palpitations have been intermittent. On November 01 he was diagnosed with AFib which converted to a normal sinus rhythm without intervention while he was in the department. Patient states since then he has occasionally had skipped beats. He states often frequent. He states sometimes he will feel little bit dizzy. Today he had chest pain on the left side and in the lymph node of his left elbow. He states he does have neck issues and isn't sure if this could be the cause as well. He did feel little short of breath. He has felt slightly nauseated times but no vomiting. He has not had any fevers, no cough cold or congestion. He has not been diaphoretic. He denies any issues with bowel movements, urination or swelling in his extremities. He denies any tremors or other changes. He states he was not started on any medications but referred to his primary care to get a referral to Cardiology. He does take amitriptyline daily but did not take his dose this evening and states his only surgery was for a gallbladder. He does smoke tobacco but states he is trying to decrease and states he has been decreasing his alcohol intake and was drinking half of a 5th daily but only had several sips today. He denies any illicit. He sees Dr. Serrato for his primary care. He states his grandmother had heart problems, his mother of brain cancer. Related Data Home Medications Medication Instructions Recorded Confirmed hydrocodone-acetaminophen 1 tab PO Q6H PRN 10/10/18 10/10/18 Allergies Allergy/AdvReac Type Severity Reaction Status Date / Time No Known Drug Allergies Allergy Verified 10/10/18 15:24 Review of Systems Review of Systems ROS Unobtainable: All systems reviewed & are unremarkable except as noted in HPI and below Patient History Medical History Smoking (Acute) Surgical History History of cholecystectomy (Acute) Social History Smoking Status: Current every day smoker alcohol intake: current substance use type: marijuana Smoking Status: Current every day smoker alcohol intake frequency: 0-2 drinks per day Substance Use Type: does not use Exam Narrative Exam Narrative: GENERAL: Alert and oriented x three, well-nourished male who appears mildly anxious. HEENT: Head normocephalic, atraumatic, EOMI, pupils reactive, face symmetric, moist mucous membranes NECK: Supple, full range of motion CARDIOVASCULAR: Regular rate and rhythm without murmurs, rubs or gallops. No rash or skin changes. 2+ pulses in upper and lower extremities. RESPIRATORY: Breath sounds equal bilaterally, no wheezes rales or rhonchi. ABDOMEN: Soft, nontender. Normoactive bowel sounds all 4 quadrants. No guarding or rebound, rigidity, no mass : No CVA tenderness EXTREMITIES: Normal range of motion, no clubbing or edema. Neurovascularly intact NEUROLOGICAL: Cranial nerves II through XII grossly intact. Moving all extremities SKIN: Warm, dry, no petechiae, no rashes or lesions. Initial Vital Signs Initial Vital Signs: Vital Signs Temperature 98.8 F 12/18/19 02:08 Pulse Rate 76 12/18/19 02:08 Respiratory Rate 18 12/18/19 02:08 Blood Pressure 156/101 H 12/18/19 02:08 Pulse Oximetry 97 12/18/19 02:08 Scores HEART Score Heart Score history: Slightly Suspicious Heart Score EKG: Non-Specific repolarization disturbance Heart Score Age: 45-64 years old Heart Score risk factors: No known risk factors Heart Score troponin: < or = to normal limit Heart Score Total: 2 Course Orders Ordered: ED Orders 12/18/19 EKG-12 Lead Stat 12/18/19 02:05 Basic Metabolic Panel Stat Complete Blood Count AUTO DIFF Stat Magnesium Stat Thyroid Stimulating Hormone Stat Troponin & CK Cardiac Panel Stat 12/18/19 02:24 XR chest 1V Stat 12/18/19 04:00 Troponin & CK Cardiac Panel Stat Discontinued Medications Aspirin (Aspirin Chew) 324 mg PO NOW ONE Stop: 12/18/19 02:26 Last Admin: 12/18/19 02:29 Dose: 324 mg [facility] Vital Signs Vital signs: Vital Signs - 8 hr 12/18/19 02:08 12/18/19 03:00 12/18/19 03:30 Temperature 98.8 F Pulse Rate 76 64 58 L Respiratory Rate 18 12 13 Blood Pressure 156/101 H Blood Pressure [Right Arm] 126/82 121/80 Pulse Oximetry 97 98 94 MDM - Arrhythmia/Palpitations Lab Data Attestation: I reviewed the patient's lab results. Result diagrams: 12/18/19 02:05 12/18/19 02:05 Labs: Lab Results 12/18/19 12/18/19 12/18/19 Range/Units 02:05 02:05 02:05 WBC 8.7 (4.5-11.0) X10^3/uL RBC 5.36 (4.5-5.9) X10^6/uL Hgb 17.0 (13.5-17.5) g/dL Hct 49.6 (41-53) % MCV 92.4 (80-100) fL MCH 31.6 (26-34) PG MCHC 34.2 (30-36) % RDW 12.5 (11.6-14.8) % Plt Count 243 (150-400) X10^3/uL Neut % (Auto) 45.2 L (50-75) % Lymph % (Auto) 39.1 (25-40) % [place] % (Auto) 11.0 (3-14) % Eos % (Auto) 3.4 (2-4) % Baso % (Auto) 1.3 (0-2) % Neut # (Auto) 3900 (2947-0479) /uL Lymph # (Auto) 3400 (0151-1983) /uL [place] # (Auto) 1000 H (0-900) /uL Eos # (Auto) 300 (0-450) /uL Baso # (Auto) 100 (0-100) /uL Sodium 136 L (137-145) mmol/L Potassium 4.0 (3.4-5.1) mmol/L Chloride 105 (98-107) mmol/L Carbon Dioxide 23 (22-32) mmol/L BUN 14 (9-20) mg/dL Creatinine 0.77 (0.66-1.25) mg/dL Estimated GFR > 60.0 (>60) mL/min BUN/Creatinine Ratio 18.2 (6-22) Glucose 105 H (70-100) mg/dL Calcium 10.1 (8.4-10.2) mg/dL Magnesium 2.3 (1.6-2.3) mg/dL Total Creatine Kinase 52 L (55-170) U/L CK-MB (CK-2) TNP CK-MB (CK-2) Rel Index TNP Troponin I < 0.012 (0.01-0.034) ng/mL TSH 5.39 H (0.47-4.68) uIU/mL 12/18/19 Range/Units 04:00 WBC (4.5-11.0) X10^3/uL RBC (4.5-5.9) X10^6/uL Hgb (13.5-17.5) g/dL Hct (41-53) % MCV (80-100) fL MCH (26-34) PG MCHC (30-36) % RDW (11.6-14.8) % Plt Count (150-400) X10^3/uL Neut % (Auto) (50-75) % Lymph % (Auto) (25-40) % [place] % (Auto) (3-14) % Eos % (Auto) (2-4) % Baso % (Auto) (0-2) % Neut # (Auto) (2901-8178) /uL Lymph # (Auto) (2146-8600) /uL [place] # (Auto) (0-900) /uL Eos # (Auto) (0-450) /uL Baso # (Auto) (0-100) /uL Sodium (137-145) mmol/L Potassium (3.4-5.1) mmol/L Chloride (98-107) mmol/L Carbon Dioxide (22-32) mmol/L BUN (9-20) mg/dL Creatinine (0.66-1.25) mg/dL Estimated GFR (>60) mL/min BUN/Creatinine Ratio (6-22) Glucose (70-100) mg/dL Calcium (8.4-10.2) mg/dL Magnesium (1.6-2.3) mg/dL Total Creatine Kinase 42 L (55-170) U/L CK-MB (CK-2) TNP CK-MB (CK-2) Rel Index TNP Troponin I < 0.012 (0.01-0.034) ng/mL TSH (0.47-4.68) uIU/mL Imaging Data Chest x-ray: Attestation: I personally reviewed and interpreted this imaging study as follows: My Impression: nap, no infiltrate, no cardiomegaly, normal mediastinum, no pneumothorax, no fractures. ECG Data Attestation: I personally reviewed and interpreted this ECG as follows: Prior ECG tracings: available for review Interpretation: Sinus rhythm incomplete right bundle-branch, rate 69, DE 166, QRS of 92 and QTC of 424. No ST elevation or depression noted. Patient has EKG from 11/01/2019 that appears similar after patient had cardioverted from AFib rhythm. EKG 2. Shows sinus rhythm with a rate of 65, DE 158, QRS of 94 and QTC of 438. No ST elevation depression. Patient has some motion artifact in V3. Appears similar to priors. MDM Narrative Medical decision making narrative: 49-year-old male comes in with palpitations and chest pain. Patient was seen November 01 with atrial fibrillation that resolved prior to intervention emergency department. It was captured on EKG. Patient has not had any episodes of atrial fibrillation in the department. He describes very short episodes of palpitations but did develop left chest pain and what he describes as pain in the lymph node of his left elbow. Heart score is 2, patient has a primary care but has not set up follow-up secondary to transportation issues. Was given a referral to Cardiology discussed that they do have an office in [place] that they can potentially follow with. He has been decreasing his alcohol intake since his diagnosis of atrial fibrillation but does not have any signs of withdrawal. Troponin x2 as well as EKG do not show acute findings. No other major lab abnormalities. Chest x-ray is negative. Discussed with patient return precautions and reasons for follow-up. Discharge Plan Departure Patient Disposition: Home Clinical Impression: Palpitations Instructions: DI for Arrhythmias Activity Restrictions/Additional Instructions: Follow-up for further evaluation Holter monitor. Your primary care physician can order the Holter monitor while waiting to see Cardiology. Included is also a referral for Cardiology. Call for follow-up. They do have a clinic in [place] and [facility]. Continue home medication as prescribed. Return to the ER for recurrent symptoms, new chest pain, shortness of breath, prolonged or elevated heart rate/palpitations, passing out, persistent vomiting, swelling in her extremities or other new or concerning symptoms. Prescriptions: No Action hydrocodone-acetaminophen tablet 1 tab PO Q6H PRN (Reason: Pain, Moderate) RF: 0 Referrals: Jace Thomas MD [Physician] - Aileen Tapia PA-C [Primary Care Provider] -
--- NOTE | 2019-12-18 02:24 | DI.RAD.S_ITS ---
PROCEDURE: XR CHEST 1V INDICATIONS: palpitations, chest pain TECHNIQUE: One view of the chest was acquired. COMPARISON: [facility], CT, CT CHEST WO CON, 11/18/2018, 11:27. [facility], CR, CHEST 1 VIEW, 11/15/2016, 15:35. FINDINGS: Surgical changes and devices: None. Lungs and pleura: Lungs are clear. No pleural effusions or pneumothorax. Mediastinum: Mediastinal contours appear normal. Heart size is normal. Bones and chest wall: No suspicious bony lesions. Overlying soft tissues appear unremarkable. IMPRESSION: No acute cardiopulmonary disease. Dictated by: Brooks Rasheed M.D. on 12/18/2019 at 8:18 Approved by: Brooks Rasheed M.D. on 12/18/2019 at 8:19
[2019-12-18] MEDS: ASPIRIN 81 MG CHEW TAB 324 MG PO (02:29)
[2019-12-18 02:37] LABS: Add Manual Diff / Slide Review NO; Basophils Absolute Auto 100 /uL (0-100); Basophils Percent Auto 1.3 % (0-2); Eosinophils Absolute Auto 300 /uL (0-450); Eosinophils Percent Auto 3.4 % (2-4); Hematocrit 49.6 % (41-53); Lymphocytes Absolute Auto 3400 /uL (1100-4500); Lymphocytes Percent Auto 39.1 % (25-40); Mean Corpuscular HGB Conc 34.2 % (30-36); Mean Corpuscular Hemoglobin 31.6 PG (26-34); Mean Corpuscular Volume 92.4 fL (80-100); Monocytes Absolute Auto 1000 /uL (0-900); Neutrophils Absolute Auto 3900 /uL (1500-7000); Neutrophils Percent Auto 45.2 % (50-75); Platelet Count 243 X10^3/uL (150-400); Red Blood Cell Count 5.36 X10^6/uL (4.5-5.9); Red Cell Distribution Width 12.5 % (11.6-14.8); White Blood Cell Count 8.7 X10^3/uL (4.5-11.0)
[2019-12-18 02:48] LABS: BUN Creatinine Ratio 18.2 (6-22); Blood Urea Nitrogen 14 mg/dL (9-20); Calcium 10.1 mg/dL (8.4-10.2); Carbon Dioxide 23 mmol/L (22-32); Chloride 105 mmol/L (98-107); Creatine Kinase 52 U/L (55-170); Estimated Glomerular Filt Rate > 60.0 mL/min (>60); Glucose 105 mg/dL (70-100); HEMOLYSIS < 15 (0-50); Magnesium 2.3 mg/dL (1.6-2.3); Sodium 136 mmol/L (137-145)
[2019-12-18 03:00] VITALS: BP 126/82; PULSE 64; RESP 12; O2SAT 98
[2019-12-18 03:00] LABS: Troponin I < 0.012 ng/mL (0.01-0.034)
[2019-12-18 03:19] LABS: Thyroid Stimulating Hormone 5.39 uIU/mL (0.47-4.68)
[2019-12-18 03:30] VITALS: BP 121/80; PULSE 58; RESP 13; O2SAT 94
[2019-12-18 04:22] LABS: Creatine Kinase 42 U/L (55-170)
[2019-12-18 04:35] LABS: Troponin I < 0.012 ng/mL (0.01-0.034)
[2019-12-18 05:08] VITALS: BP 127/82; PULSE 68; RESP 20; O2SAT 99
== END 2019-12-18 05:09 | disposition home or self-care (01) ==
PROVIDERS: Emergency Provider Emergency Medicine; PCP Physician Assistant
DX: R00.2 Palpitations (principal); R07.9 Chest pain, unspecified; I48.91 Unspecified atrial fibrillation
CPT/HCPCS: 36415; 71045; 80048; 82550; 83735; 84443; 84484; 85025; 93005; 99284; 99285

== ENCOUNTER → 2020-03-10 09:00 | Outpatient (CLI) | payer MEDICARE, MEDICAID, SELFPAY ==
--- NOTE | 2020-03-10 | DI.ECHO.S_ITS ---
[facility] +---------+ : : [address] [place] : : : : [id number] : : : : Phone: [phone] Echocardiogram Report + + :Name: RULA MCMAHON Study Date: 03/10/2020 Height: 73 in : :[facility] Weight: 227 lb : : Gender: Male BSA: 2.3 m2 : :: 1970 Age: 50 yrs BP: 152/80 mmHg: :Reason For Study: Atrial Fibrillation : :Ordering Physician: Srinivasan Thao : :[place] Performed By: Helena Lamar : :Referring: SRINIVASAN VIVAR : + + Interpretation Summary 1) Normal left ventricular size, wall motion, and systolic function (EF 60- 65%). 2) Normal right ventricular size and function. 3) No significant valvular abnormalities. 4) Sinus rhythm present during the study. 5) No prior Echo available for comparison. Procedure: A two-dimensional transthoracic echocardiogram with color flow and Doppler was performed. The study quality was technically adequate. There is no prior echocardiogram noted for this patient. The patient was in sinus bradycardia with heart rates between 50-60 bpm during the exam. Left Ventricle: The left ventricle is normal in size. Left ventricular wall thickness is at the upper limits of normal. The ejection fraction is estimated to be 60-65%. Left ventricular global longitudinal strain average is -22.9%. Left ventricular systolic function is normal without focal wall motion abnormalities. Right Ventricle: The right ventricle is normal in size and function. Atria: Both atria are normal in size. There is no Doppler evidence for an interatrial shunt. Mitral Valve: The mitral valve is normal in structure and function. There is trace mitral regurgitation. Aortic Valve: The aortic valve is trileaflet. The aortic valve opens well. There is no aortic valve stenosis. No aortic regurgitation is present. Tricuspid Valve: The tricuspid valve is normal in structure and function. Pulmonary artery pressures cannot be estimated because of the lack of a measurable TR jet velocity but the IVC suggests a CVP of around 3 mmHg. There is a trace or physiologic amount of tricuspid regurgitation. Pulmonic Valve: The pulmonic valve is not well seen, but is grossly normal. There is mild pulmonic regurgitation. Great Vessels: The aortic root is normal size. The ascending aorta could not be visualized. The IVC is of normal diameter and collapses greater than 50% with a sniff. This suggests a low right atrial pressure of 3 mm Hg. Pericardium/ Pleura There is an anterior echo-free space consistent with a fat pad. There is no pericardial effusion. There is no pleural effusion. MMode/2D Measurements & Calculations LVIDd: 5.4 cm LVOT diam: 2.3 cm LVIDs: 3.5 cm Ao root diam: 3.5 cm FS: 35.3 % Ao Arch Diam (Prox Trans): 3.4 cm IVSd: 0.97 cm LVPWd: 1.1 cm LV barrios. diameter/BSA (cm/m^2): 2.4 LV sys. diameter/BSA (cm/m^2): 1.5 LA A2 area: 19.0 cm2 RA long axis: 5.5 cm LA A4 area: 15.3 cm2 RA area: 18.3 cm2 LA length (vol): 5.0 cm RA vol: 51.7 ml LA vol: 49.6 ml RA : 22.8 ml/m2 LA vol index: 21.8 ml/m2 IVC diam: 1.4 cm RVD1 (basal): 3.6 cm TAPSE: 2.4 cm Doppler Measurements & Calculations Ao V2 max: 109.6 cm/sec LVOT Max Fabrice: 98.1 cm/sec Ao V2 mean: 71.3 cm/sec LV V1 max P.8 mmHg Ao max P.8 mmHg LV V1 VTI: 20.4 cm Ao mean P.4 mmHg FAINA(I,D): 3.9 cm2 Ao V2 VTI: 22.0 cm FAINA(V,D): 3.8 cm2 sev ratio: 0.93 FAINA indexed to BSA (cm^2/m^2): 1.7 MV E max fabrice: 74.4 cm/sec PA V2 max: 73.5 cm/sec MV A max fabrice: 45.9 cm/sec PA V2 mean: 46.8 cm/sec MV E/A: 1.6 PA mean P.1 mmHg Med Peak E' Fabrice: 8.9 cm/sec E/E' med: 8.4 Lat Peak E' Fabrice: 10.7 cm/sec E/E' lat: 6.9 E/e' average: 7.7 MV dec time: 0.23 sec SV(LVOT): 86.1 ml Reading Physician:01:22 PM
== END ==
PROVIDERS: PCP Physician Assistant; Referring Provider Internal Medicine Cardiovascular Disease; Visit Provider Internal Medicine Cardiovascular Disease
DX: I37.1 Nonrheumatic pulmonary valve insufficiency (principal); I48.0 Paroxysmal atrial fibrillation
CPT/HCPCS: 93306

== ENCOUNTER → 2020-05-07 12:56 | Outpatient (CLI) | payer MEDICARE, MEDICAID, SELFPAY ==
[2020-05-07 14:30] LABS: Cholesterol 206 mg/dL (140-199); HDL Cholesterol 45 mg/dL (40-60); LDL Cholesterol Calculated 110 mg/dL (<100); Triglycerides 255 mg/dL (35-150)
== END ==
PROVIDERS: PCP Physician Assistant; Referring Provider Internal Medicine Cardiovascular Disease; Visit Provider Internal Medicine Cardiovascular Disease
DX: I10 Essential (primary) hypertension (principal)
CPT/HCPCS: 36415; 80061

== ENCOUNTER → 2020-05-20 15:21 | Outpatient (CLI) | payer MEDICARE, MEDICAID, SELFPAY ==
[2020-05-21 13:52] LABS: COVID19 Sendout Not Detected (Not Detect)
== END ==
PROVIDERS: PCP Physician Assistant; Visit Provider Physician Assistant
DX: Z11.59 Encounter for screening for other viral diseases (principal)
CPT/HCPCS: 87635

== ENCOUNTER 2020-08-03 08:24 | Emergency (ER) | payer MEDICARE, MEDICAID, SELFPAY ==
[2020-08-03] VITALS (7 sets, daily range): BP systolic 141–187; BP diastolic 92–110; PULSE 64–74; RESP 12–29; TEMP 36.3; O2SAT 94–99; BMI 29.5
--- NOTE | 2020-08-03 08:32 | ED_ITS ---
HPI - Abdominal Pain General Chief Complaint: Abdominal Pain Stated Complaint: abdominal pain,right side Time Seen by Provider: 08/03/20 08:32 History of Present Illness HPI narrative: 50-year-old gentleman with a history of atrial fibrillation and prior renal stones presents with acute right lower quadrant pain sharp and severe onset 1 hour prior to arrival. He was hurting so much that he was having trouble even keeping his eyes opening or participating in any type of history of physical. No diaphoresis or vomiting. Does note that over the last 3 weeks he has been fatigued, mildly nauseated and also complains of multiple arthralgias all of which seem to have improved over the last couple of days. He reports no recent palpitations, chest pain, dyspnea, diarrhea. Related Data Home Medications Medication Instructions Recorded Confirmed hydrocodone-acetaminophen 1 tab PO Q6H PRN 10/10/18 10/10/18 amitriptyline 10 mg tablet 10 mg PO DAILY PRN tab 05/06/20 05/06/20 diltiazem HCl 180 mg 180 mg PO DAILY 05/06/20 05/06/20 capsule,extended release 24 hr Previous Rx's Medication Instructions Recorded oxycodone-acetaminophen 1 tab PO Q8H PRN #10 tab 08/03/20 Allergies Allergy/AdvReac Type Severity Reaction Status Date / Time No Known Drug Allergies Allergy Verified 08/03/20 08:36 Review of Systems Review of Systems Narrative: Remainder of review of systems including constitutional, ENT, cardiovascular, respiratory, GI, , musculoskeletal, skin, neurologic and psychiatric systems reviewed and are unremarkable except as noted in HPI. Patient History Medical History Breathing-related sleep disorder (Acute) Erythrocytosis (Acute) Paroxysmal atrial fibrillation (Acute) Smoking (Acute) Ureterolithiasis (Acute) Surgical History History of cholecystectomy (Acute) Family History Family/Other Loud snoring Obesity Hypertension Heart disease Depression Anxiety Father Alcohol abuse Mother Loud snoring Sleep apnea Obesity Hypertension Diabetes mellitus Depression Anxiety Alcohol abuse Family/Other Depression Anxiety Social History Smoking Status: Current every day smoker alcohol intake: current substance use type: marijuana Smoking Status: Current every day smoker alcohol intake frequency: 0-2 drinks per day Substance Use Type: does not use Exam Narrative Exam Narrative: General: Severe distress with right lower quadrant and right flank pain. Well-nourished well-developed HEENT: Moist mucous membranes, normal sclera with reactive pupils, Neck: No JVD, supple Respiratory: Lungs are clear to auscultation, no wheezing no rales no rhonchi. Full and symmetrical air movement Cardiac: Regular rate and rhythm no murmurs no bruits Abdomen: Soft , right flank pain, right lower quadrant pain without rebound or guarding Skin: Warm and dry, no rashes Neurologic: Grossly neurologically intact with no obvious asymmetries or abnormalities Extremities: No trauma, well perfused Psych: Cooperative, appropriate insight and affect Initial Vital Signs Initial Vital Signs: Vital Signs Temperature 97.3 F L 08/03/20 08:34 Pulse Rate 66 08/03/20 08:34 Respiratory Rate 12 08/03/20 08:34 Blood Pressure 187/110 H 08/03/20 08:34 Pulse Oximetry 99 08/03/20 08:34 Course Orders Ordered: ED Orders 08/03/20 08:32 Complete Blood Count AUTO DIFF Stat Comprehensive Metabolic Panel Stat Lipase Stat Troponin I Stat 08/03/20 08:37 EKG-12 Lead Stat 08/03/20 09:14 CT kidney ureter bladder (KUB) Stat 08/03/20 10:34 Urinalysis and Microscopic Stat Hydromorphone HCl (Dilaudid) 0.5 mg IV Q15MIN PRN PRN Reason: Pain, Last Admin: 08/03/20 09:56 Dose: 0.5 mg Documented by: Admin: 08/03/20 09:14 Dose: 0.5 mg Documented by: GONZALEZ Discontinued Medications Sodium Chloride (Normal Saline 0.9%) 1,000 mls @ 1,000 mls/hr IV BOLUS ONE Stop: 08/03/20 09:35 Last Infusion: 08/03/20 09:53 Dose: 0 mls/hr Documented by: Admin: 08/03/20 08:44 Dose: 1,000 mls/hr Documented by: GONZALEZ Ketorolac Tromethamine (Toradol) 15 mg IV NOW ONE Stop: 08/03/20 08:37 Last Admin: 08/03/20 08:44 Dose: 15 mg Documented by: GONZALEZ Ondansetron HCl (Zofran) 4 mg IV NOW ONE Stop: 08/03/20 08:46 Last Admin: 08/03/20 08:48 Dose: 4 mg Documented by: GONZALEZ Oxycodone/Acetaminophen (Percocet 5/325) 1 tab PO NOW ONE Stop: 08/03/20 11:15 Vital Signs Vital signs: Vital Signs - 8 hr 08/03/20 08:34 Temperature 97.3 F L Pulse Rate 66 Respiratory Rate 12 Blood Pressure 187/110 H Pulse Oximetry 99 MDM - Abdominal Pain Medical Records Attestation: I reviewed the patient's medical records. Lab Data Attestation: I reviewed the patient's lab results. Result diagrams: 08/03/20 08:32 08/03/20 08:32 Labs: Lab Results 08/03/20 08/03/20 08/03/20 Range/Units 08:32 08:32 08:32 WBC 8.1 (4.5-11.0) X10^3/uL RBC 5.41 (4.5-5.9) X10^6/uL Hgb 17.2 (13.5-17.5) g/dL Hct 50.0 (41-53) % MCV 92.4 (80-100) fL MCH 31.7 (26-34) PG MCHC 34.3 (30-36) % RDW 13.2 (11.6-14.8) % Plt Count 213 (150-400) X10^3/uL Neut % (Auto) 47.5 L (50-75) % Lymph % (Auto) 37.3 (25-40) % Caroline % (Auto) 11.3 (3-14) % Eos % (Auto) 2.7 (2-4) % Baso % (Auto) 1.2 (0-2) % Neut # (Auto) 3900 (8471-7656) /uL Lymph # (Auto) 3000 (6170-3730) /uL Caroline # (Auto) 900 (0-900) /uL Eos # (Auto) 200 (0-450) /uL Baso # (Auto) 100 (0-100) /uL Sodium 137 (137-145) mmol/L Potassium 3.6 (3.4-5.1) mmol/L Chloride 106 (98-107) mmol/L Carbon Dioxide 23 (22-32) mmol/L BUN 15 (9-20) mg/dL Creatinine 0.72 (0.66-1.25) mg/dL Estimated GFR > 60.0 (>60) mL/min BUN/Creatinine Ratio 20.8 (6-22) Glucose 139 H (70-100) mg/dL Calcium 9.2 (8.4-10.2) mg/dL Total Bilirubin 0.6 (0.2-1.3) mg/dL AST 30 (17-59) IU/L ALT 29 (<50) IU/L Alkaline Phosphatase 60 (38-126) U/L Troponin I < 0.012 (0.01-0.034) ng/mL Total Protein 7.7 (6.3-8.2) g/dL Albumin 4.6 (3.5-5.0) g/dL Globulin 3.1 (1.7-4.1) g/dL Albumin/Globulin Ratio 1.5 (1.0-2.8) Lipase 217 (23-300) U/L Urine Color Urine Appearance Urine pH (4.5-8.0) Ur Specific [place] (1.000-1.035) Urine Protein (Negative) Urine Glucose (UA) (Negative) g/dL Urine Ketones (NEGATIVE) Urine Occult Blood (Negative) Urine Nitrate (Negative) Urine Bilirubin (NEGATIVE) Urine Urobilinogen (0.2) E.U./dL Ur Leukocyte Esterase (NEGATIVE) Urine RBC (0-5/HPF) Urine WBC (0-5/HPF) Ur Squamous Epith Cells (0-5/HPF) Urine Bacteria (None) Urine Mucus (Negative) Ur Culture Indicated? 08/03/20 Range/Units 10:34 WBC (4.5-11.0) X10^3/uL RBC (4.5-5.9) X10^6/uL Hgb (13.5-17.5) g/dL Hct (41-53) % MCV (80-100) fL MCH (26-34) PG MCHC (30-36) % RDW (11.6-14.8) % Plt Count (150-400) X10^3/uL Neut % (Auto) (50-75) % Lymph % (Auto) (25-40) % Caroline % (Auto) (3-14) % Eos % (Auto) (2-4) % Baso % (Auto) (0-2) % Neut # (Auto) (8024-7998) /uL Lymph # (Auto) (5205-4765) /uL Caroline # (Auto) (0-900) /uL Eos # (Auto) (0-450) /uL Baso # (Auto) (0-100) /uL Sodium (137-145) mmol/L Potassium (3.4-5.1) mmol/L Chloride (98-107) mmol/L Carbon Dioxide (22-32) mmol/L BUN (9-20) mg/dL Creatinine (0.66-1.25) mg/dL Estimated GFR (>60) mL/min BUN/Creatinine Ratio (6-22) Glucose (70-100) mg/dL Calcium (8.4-10.2) mg/dL Total Bilirubin (0.2-1.3) mg/dL AST (17-59) IU/L ALT (<50) IU/L Alkaline Phosphatase (38-126) U/L Troponin I (0.01-0.034) ng/mL Total Protein (6.3-8.2) g/dL Albumin (3.5-5.0) g/dL Globulin (1.7-4.1) g/dL Albumin/Globulin Ratio (1.0-2.8) Lipase (23-300) U/L Urine Color Yellow Urine Appearance Clear Urine pH 6.0 (4.5-8.0) Ur Specific [place] 1.020 (1.000-1.035) Urine Protein Negative (Negative) Urine Glucose (UA) Negative (Negative) g/dL Urine Ketones Trace H (NEGATIVE) Urine Occult Blood 3+ H (Negative) Urine Nitrate Negative (Negative) Urine Bilirubin Negative (NEGATIVE) Urine Urobilinogen 0.2 (0.2) E.U./dL Ur Leukocyte Esterase Negative (NEGATIVE) Urine RBC 10-30/hpf H (0-5/HPF) Urine WBC None seen (0-5/HPF) Ur Squamous Epith Cells 1-5 /hpf (0-5/HPF) Urine Bacteria None seen (None) Urine Mucus 2+ H (Negative) Ur Culture Indicated? Cult not indicated Imaging Data CT scan - abdomen/pelvis: Radiologist's Impression: FINDINGS: Image quality: Excellent. Lung bases: Lung bases are clear. Heart size is normal. Urinary system: Both kidneys are normal in size. There is a 2 mm nonobstructing left nephrolith. No right-sided nephroliths. There is mild right hydroureter with associated periureteral stranding. There is a 2 mm calculus noted in the dependent portion of the urinary bladder on the right, immediately adjacent to the right ureteral vesicular junction. No left-sided hydronephrosis or perinephric fat stranding. Left ureter appears non-dilated throughout its expected course. Bladder wall thickness is normal for degree of distension. Bilateral renal hypodensities compatible with renal cysts. Other solid organs: Liver is normal in size. Gallbladder is surgically absent. Pancreas is normal in contours. Spleen is normal in size. No adrenal nodules. Peritoneum and bowel: Unenhanced bowel loops demonstrate normal wall thickness and caliber. Normal appendix. No free fluid or air. Nodes and vessels: No retroperitoneal or mesenteric adenopathy by size criteria. Aorta and inferior vena cava are normal in caliber. Scattered atherosclerotic calcifications of the abdominal aorta and iliac vessels without aneurysmal dilatation. Abdominal wall: No ventral hernias. Pelvis: No free pelvic fluid. No inguinal hernias or adenopathy. Bones: No suspicious bony lesions. No vertebral body compression fractures. IMPRESSION: 1. There is mild right hydroureter with associated periureteral stranding likely related to passage of a 2 mm urolith which is now visualized in the dependent portion of the urinary bladder, immediately adjacent to the right ureterovesicular junction. 2. Nonobstructing 2 mm left nephrolith. 3. Normal appendix. 4. Atherosclerosis. Dictated by: Favian Emery M.D. on 08/03/2020 at 9:08 ECG Data Attestation: I personally reviewed and interpreted this ECG as follows: Interpretation: Sinus rhythm at a rate of 64 Incomplete right bundle branch block, normal axis No acute ischemic changes MDM Narrative Medical decision making narrative: 50-year-old gentleman with a history of prior greater than 6 mm renal stone. Presents with severe right lower quadrant pain. Moderately call controlled with fluid, Toradol, Zofran, and Dilaudid. CT scan shows a 2 mm stone that is in the bladder suggesting it was recently passed. Pain has improved significantly. No signs of infection or sepsis. He is safe for home discharge Discharge Plan Departure Patient Disposition: Home Clinical Impression: Kidney stone Instructions: DI for Kidney Stones Activity Restrictions/Additional Instructions: Thank you for coming in today Your exam and blood work and CT scan all suggest a 2 mm kidney stone on the right side. Fortunately you have already passed it. On the CT scan the stone was seen in your bladder. I have given you a Percocet to help with the persistent dull pain after you passed a stone. I will give you a limited prescription of Percocet to have at home should you have recurrent pain. Please return to the emergency room if the pain is in you are approaching what y ou had this morning, fevers, chills or difficulty with urinating Please follow-up with kelle Tapia regarding your multiple other medical issues. I wish you well. Prescriptions: New oxycodone-acetaminophen 2.5-325 mg tablet 1 tab PO Q8H PRN (Reason: pain) Qty: 10 RF: 0 No Action hydrocodone-acetaminophen tablet 1 tab PO Q6H PRN (Reason: Pain, Moderate) RF: 0 amitriptyline 10 mg tablet 10 mg PO DAILY PRNRF: 0 diltiazem HCl [Cartia XT] 180 mg capsule,extended release 24hr 180 mg PO DAILY RF: 0 Referrals: Aileen Tapia PA-C [Primary Care Provider] -
[2020-08-03 08:44] LABS: Add Manual Diff / Slide Review NO; Basophils Absolute Auto 100 /uL (0-100); Basophils Percent Auto 1.2 % (0-2); Eosinophils Absolute Auto 200 /uL (0-450); Eosinophils Percent Auto 2.7 % (2-4); Hemoglobin 17.2 g/dL (13.5-17.5); Lymphocytes Absolute Auto 3000 /uL (1100-4500); Lymphocytes Percent Auto 37.3 % (25-40); Mean Corpuscular HGB Conc 34.3 % (30-36); Mean Corpuscular Hemoglobin 31.7 PG (26-34); Mean Corpuscular Volume 92.4 fL (80-100); Monocytes Absolute Auto 900 /uL (0-900); Monocytes Percent Auto 11.3 % (3-14); Neutrophils Absolute Auto 3900 /uL (1500-7000); Neutrophils Percent Auto 47.5 % (50-75); Platelet Count 213 X10^3/uL (150-400); Red Blood Cell Count 5.41 X10^6/uL (4.5-5.9); Red Cell Distribution Width 13.2 % (11.6-14.8); White Blood Cell Count 8.1 X10^3/uL (4.5-11.0)
[2020-08-03] MEDS: KETOROLAC 60 MG/2 ML VIAL 15 MG IV (08:44)
[2020-08-03] MEDS: SODIUM CHLORIDE 0.9% 1,000 ML 1000 ML IV (08:44)
[2020-08-03] MEDS: ONDANSETRON 4 MG/2 ML INJ IV (08:48)
[2020-08-03 08:51] LABS: Alanine Aminotransferase 29 IU/L (<50); Albumin 4.6 g/dL (3.5-5.0); Albumin Globulin Ratio 1.5 (1.0-2.8); Alkaline Phosphatase 60 U/L (38-126); Aspartate Aminotransferase 30 IU/L (17-59); BUN Creatinine Ratio 20.8 (6-22); Bilirubin Total 0.6 mg/dL (0.2-1.3); Blood Urea Nitrogen 15 mg/dL (9-20); Calcium 9.2 mg/dL (8.4-10.2); Carbon Dioxide 23 mmol/L (22-32); Chloride 106 mmol/L (98-107); Estimated Glomerular Filt Rate > 60.0 mL/min (>60); Globulin 3.1 g/dL (1.7-4.1); Glucose 139 mg/dL (70-100); HEMOLYSIS < 15 (0-50); Lipase 217 U/L (23-300); Potassium 3.6 mmol/L (3.4-5.1); Sodium 137 mmol/L (137-145); Total Protein 7.7 g/dL (6.3-8.2)
[2020-08-03 09:02] LABS: Troponin I < 0.012 ng/mL (0.01-0.034)
[2020-08-03] MEDS: HYDROMORPHONE 0.5 MG INJ IV ×2 (09:14→09:56)
--- NOTE | 2020-08-03 09:14 | DI.CT.S_ITS ---
PROCEDURE: CT KIDNEY URETER BLADDER (KUB) INDICATIONS: RLQ/R flank pain. H/o prior kidney stone TECHNIQUE: Noncontrast 5 mm thick sections acquired from the diaphragms to the symphysis. 5 mm thick coronal and sagittal reformats were then performed. For radiation dose reduction, the following was used: automated exposure control, adjustment of mA and/or kV according to patient size. COMPARISON: [facility], MR, MR ABDOMEN MRCP, 09/13/2019, 12:05. [facility], CT, KIDNEY/ URETER/BLADDER, 10/26/2014, 11:30. [facility], CT, KIDNEY/ URETER/BLADDER, 01/01/2007, 12:13. FINDINGS: Image quality: Excellent. Lung bases: Lung bases are clear. Heart size is normal. Urinary system: Both kidneys are normal in size. There is a 2 mm nonobstructing left nephrolith. No right-sided nephroliths. There is mild right hydroureter with associated periureteral stranding. There is a 2 mm calculus noted in the dependent portion of the urinary bladder on the right, immediately adjacent to the right ureteral vesicular junction. No left-sided hydronephrosis or perinephric fat stranding. Left ureter appears non-dilated throughout its expected course. Bladder wall thickness is normal for degree of distension. Bilateral renal hypodensities compatible with renal cysts. Other solid organs: Liver is normal in size. Gallbladder is surgically absent. Pancreas is normal in contours. Spleen is normal in size. No adrenal nodules. Peritoneum and bowel: Unenhanced bowel loops demonstrate normal wall thickness and caliber. Normal appendix. No free fluid or air. Nodes and vessels: No retroperitoneal or mesenteric adenopathy by size criteria. Aorta and inferior vena cava are normal in caliber. Scattered atherosclerotic calcifications of the abdominal aorta and iliac vessels without aneurysmal dilatation. Abdominal wall: No ventral hernias. Pelvis: No free pelvic fluid. No inguinal hernias or adenopathy. Bones: No suspicious bony lesions. No vertebral body compression fractures. IMPRESSION: 1. There is mild right hydroureter with associated periureteral stranding likely related to passage of a 2 mm urolith which is now visualized in the dependent portion of the urinary bladder, immediately adjacent to the right ureterovesicular junction. 2. Nonobstructing 2 mm left nephrolith. 3. Normal appendix. 4. Atherosclerosis. Dictated by: Favian Emery M.D. on 08/03/2020 at 9:08 Approved by: Favian Emery M.D. on 08/03/2020 at 9:54
[2020-08-03 10:42] LABS: Bacteria Urine None Seen; WBC Urine None Seen (0-5/HPF)
[2020-08-03 10:44] LABS: Appearance Urine UA CLEAR; Bilirubin Urine UA NEGATIVE (NEGATIVE); Color Urine UA YELLOW; Glucose Urine UA NEGATIVE (Negative); Ketones Urine UA TRACE (NEGATIVE); Leukocyte Esterase Urine UA NEGATIVE (NEGATIVE); Nitrite Urine UA NEGATIVE (Negative); Occult Blood Urine UA 3+ (Negative); Protein Urine UA NEGATIVE (Negative); Urobilinogen Urine UA 0.2 E.U./dL (0.2)
[2020-08-03 10:50] LABS: Culture Indicated Urine Cult Not Indicated; Mucus Urine 2+ (Negative); RBC Urine 10-30/HPF (0-5/HPF); Squamous Epithelial Cell Urine 1-5 /HPF (0-5/HPF)
[2020-08-03] MEDS: OXYCODONE/ACETAMINOPHEN 5/325 TABLET 1 TAB PO (11:24)
== END 2020-08-03 11:32 | disposition home or self-care (01) ==
PROVIDERS: Emergency Provider Emergency Medicine; PCP Physician Assistant
DX: N20.0 Calculus of kidney (principal); R07.9 Chest pain, unspecified; R11.0 Nausea; R10.31 Right lower quadrant pain
CPT/HCPCS: 36415; 74176; 80053; 81001; 83690; 84484; 85025; 93005; 96361; 96374; 96375; 99284; J1170; J1885; J2405

== ENCOUNTER 2020-10-08 11:39 | Emergency (ER) | payer MEDICARE, MEDICAID, SELFPAY ==
[2020-10-08] VITALS (12 sets, daily range): BP systolic 115–147; BP diastolic 61–98; PULSE 62–93; RESP 13–32; TEMP 36.8; O2SAT 94–96; BMI 29.5
--- NOTE | 2020-10-08 12:27 | DI.RAD.S_ITS ---
PROCEDURE: XR CHEST 1V INDICATIONS: chest pain TECHNIQUE: One view of the chest was acquired. COMPARISON: [facility], CT, CT CHEST WO CON, 11/18/2018, 11:27. [facility], CT, CT KIDNEY URETER BLADDER (KUB), 08/03/2020, 9:28. [facility], CR, XR CHEST 1V, 12/18/2019, 2:38. [facility], CR, CHEST 1 VIEW, 11/15/2016, 15:35. FINDINGS: Surgical changes and devices: Cholecystectomy clips. Lungs and pleura: Lungs are clear. No pleural effusions or pneumothorax. Mediastinum: Mediastinal contours appear normal. Heart size is normal. Bones and chest wall: No suspicious bony lesions. Overlying soft tissues appear unremarkable. IMPRESSION: No acute cardiopulmonary abnormality. Dictated by: Ruperto Dallas M.D. on 10/08/2020 at 12:19 Approved by: Ruperto Dallas M.D. on 10/08/2020 at 12:20
[2020-10-08 12:52] LABS: Add Manual Diff / Slide Review NO; Basophils Absolute Auto 100 /uL (0-100); Basophils Percent Auto 1.5 % (0-2); Eosinophils Absolute Auto 300 /uL (0-450); Eosinophils Percent Auto 3.2 % (2-4); Hematocrit 48.3 % (41-53); Hemoglobin 16.8 g/dL (13.5-17.5); Lymphocytes Absolute Auto 2900 /uL (1100-4500); Lymphocytes Percent Auto 35.6 % (25-40); Mean Corpuscular HGB Conc 34.7 % (30-36); Mean Corpuscular Volume 92.2 fL (80-100); Monocytes Absolute Auto 900 /uL (0-900); Monocytes Percent Auto 10.8 % (3-14); Neutrophils Absolute Auto 3900 /uL (1500-7000); Neutrophils Percent Auto 48.9 % (50-75); Platelet Count 190 X10^3/uL (150-400); Red Blood Cell Count 5.24 X10^6/uL (4.5-5.9); Red Cell Distribution Width 12.6 % (11.6-14.8)
[2020-10-08 13:06] LABS: PTT Partial Thromboplastin Tim 30 SECONDS (26.4-36.2)
[2020-10-08 13:22] LABS: Alanine Aminotransferase 54 IU/L (<50); Albumin 4.6 g/dL (3.5-5.0); Albumin Globulin Ratio 1.5 (1.0-2.8); Alkaline Phosphatase 52 U/L (38-126); Aspartate Aminotransferase 43 IU/L (17-59); BUN Creatinine Ratio 38.3 (6-22); Bilirubin Total 0.6 mg/dL (0.2-1.3); Blood Urea Nitrogen 23 mg/dL (9-20); Calcium 9.7 mg/dL (8.4-10.2); Carbon Dioxide 26 mmol/L (22-32); Chloride 104 mmol/L (98-107); Creatine Kinase 85 U/L (55-170); Estimated Glomerular Filt Rate > 60.0 mL/min (>60); Glucose 97 mg/dL (70-100); HEMOLYSIS < 15 (0-50); Lipase 167 U/L (23-300); Potassium 3.6 mmol/L (3.4-5.1); Sodium 138 mmol/L (137-145); Total Protein 7.6 g/dL (6.3-8.2)
[2020-10-08 13:32] LABS: Troponin I < 0.012 ng/mL (0.01-0.034)
--- NOTE | 2020-10-08 13:33 | ED_ITS ---
HPI - Chest Pain <ROMARIO Tyson-BC - Last Filed: 10/08/20 16:51> General Chief Complaint: Chest Pain Stated Complaint: neck/jaw pain from tooth,heart 'pings' Time Seen by Provider: 10/08/20 13:07 Source: patient Mode of arrival: Ambulatory Limitations: no limitations History of Present Illness HPI narrative: Had the patient is a 50-year-old male current everyday smoker with history of atrial fibrillation and kidney stones not on blood thinners who presents with a chief complaint of heart pings. He was seen by myself with the walk-in clinic earlier today for chief complaint of left-sided dental pain and swelling and concern of infection. He took 1 dose of his penicillin, as well as 1 dose of tramadol. He then came back to the emergency department as he started having ?heart pings.He denies any chest pain on my interview, denies any shortness of breath. He denies any fevers but complains of some muscle aches and chills. He states that since he saw me at the walk-in clinic earlier today, the infection ?went to my heart.He initially checked into the emergency department, realize that there was a wait and then left and returned. Related Data Previous Rx's Medication Instructions Recorded hydrocodone-acetaminophen [[place]] 1 tab PO Q4-6H PRN #7 tab 10/08/20 ketorolac 10 mg tablet 10 mg PO TID PRN #14 tab 10/08/20 penicillin V potassium 500 mg 500 mg PO QID 10 Days #40 tab 10/08/20 tablet Allergies Allergy/AdvReac Type Severity Reaction Status Date / Time No Known Drug Allergies Allergy Verified 10/08/20 12:22 Review of Systems <PRASANNA Tyson - Last Filed: 10/08/20 16:51> Review of Systems Narrative: GENERAL: Denies chills, fatigue, malaise, fever, sweats. HEENT: See HPI RESPIRATORY: Denies dyspnea, cough, wheezing, hemoptysis, sputum. CARDIOVASCULAR: See HPI GASTROINTESTINAL: Denies nausea, vomiting, abdominal pain, diarrhea, constipation, melena. : Denies dysuria, frequency, incontinence, hematuria, urinary retention. MUSCULOSKELETAL: denies weakness, joint pain, or bony pain SKIN: Denies rash, skin lesions, or other NEUROLOGIC: Denies weakness, headache, numbness, change in speech, confusion, seizures, incoordination. PSYCHIATRIC: No concerning psychosocial issues. 12 point review of systems is negative except for those stated above Patient History <PRASANNA Tyson - Last Filed: 10/08/20 16:51> Medical History (Updated 10/08/20 @ 16:47 by PRASANNA Tyson) Breathing-related sleep disorder Erythrocytosis Paroxysmal atrial fibrillation Smoking Ureterolithiasis Surgical History History of cholecystectomy Family History Family/Other Loud snoring Obesity Hypertension Heart disease Depression Anxiety Father Alcohol abuse Mother Loud snoring Sleep apnea Obesity Hypertension Diabetes mellitus Depression Anxiety Alcohol abuse Family/Other Depression Anxiety Social History Smoking Status: Current every day smoker alcohol intake: current substance use type: marijuana Smoking Status: Current every day smoker alcohol intake frequency: 0-2 drinks per day Substance Use Type: does not use Exam <PRASANNA Tyson - Last Filed: 10/08/20 16:51> Narrative Exam Narrative: GENERAL: This is a well-nourished, well-developed patient, in no acute distress HEAD: Atraumatic. Normocephalic. No temporal or scalp tenderness. EYES: Pupils equal round and reactive. Extraocular motions intact. No scleral icterus. No injection or drainage. ENT: Nose without bleeding, purulent drainage or septal hematoma. Throat without erythema, tonsillar hypertrophy or exudate. Uvula midline. Airway patent. Poor dentition noted with multiple broken teeth. Pain to palpation of left upper jaw, no palpable abscess. Pain to palpation of left lower jaw, extending down left neck. NECK: Trachea midline. No JVD or lymphadenopathy. Supple, nontender, no meningeal signs. CARDIOVASCULAR: Regular rate and rhythm RESPIRATORY: Clear to auscultation. Breath sounds equal bilaterally. No wheezes, rales, or rhonchi. No cough. No increased respiratory effort. No accessory muscle use. No pain to palpation of left anterior chest wall lung costochondral joints GASTROINTESTINAL: Abdomen soft, non-tender, nondistended. No hepato-splenomega ly, or palpable masses. No guarding. EXTREMITIES: No clubbing, cyanosis, or edema. No joint tenderness, effusion, or edema noted. BACK: Nontender without deformity or crepitance. No flank tenderness. NEURO: AOx3. SKIN: No rash or erythema. Initial Vital Signs Initial Vital Signs: Vital Signs Temperature 98.3 F 10/08/20 12:22 Pulse Rate 93 H 10/08/20 12:22 Respiratory Rate 16 10/08/20 12:22 Blood Pressure 141/98 H 10/08/20 12:22 Pulse Oximetry 96 10/08/20 12:22 <Emily Morin MD - Last Filed: 10/08/20 19:35> Initial Vital Signs Initial Vital Signs: Vital Signs Temperature 98.3 F 10/08/20 12:22 Pulse Rate 93 H 10/08/20 12:22 Respiratory Rate 16 10/08/20 12:22 Blood Pressure 141/98 H 10/08/20 12:22 Pulse Oximetry 96 10/08/20 12:22 Scores <PRASANNA Tyson - Last Filed: 10/08/20 16:51> GCS [place] coma scale eye opening: Spontaneous [place] coma scale verbal response: Orientated [place] coma scale motor response: Obey commands [place] coma scale total score: 15 HEART Score Heart Score history: Slightly Suspicious Heart Score EKG: Normal Heart Score Age: 45-64 years old Heart Score risk factors: 1-2 risk factors Heart Score troponin: < or = to normal limit Heart Score Total: 2 Course <PRASANNA Tyson - Last Filed: 10/08/20 16:51> Orders Ordered: ED Orders 10/08/20 12:27 XR chest 1V Stat EKG-12 Lead Stat 10/08/20 12:30 Complete Blood Count AUTO DIFF Stat Comprehensive Metabolic Panel Stat Lipase Stat Partial Thromboplastin Time Stat Prothrombin Time INR Stat Troponin & CK Cardiac Panel Stat 10/08/20 12:39 Ethanol (ETOH) Stat NT-proBNP (BNP-Adult 18+) Stat 10/08/20 12:50 D Dimer Stat 10/08/20 13:47 Urine Drug Screen, Rapid Stat 10/08/20 13:55 CT soft tissue neck w con Stat 10/08/20 14:30 Troponin & CK Cardiac Panel Stat Discontinued Medications Hydrocodone Bitart/Acetaminophen (Hydrocodone/Acet 5/325 Tablet) 1 tab PO NOW ONE Stop: 10/08/20 16:43 Last Admin: 10/08/20 16:45 Dose: 1 tab Documented by: STEPHANI Lidocaine HCl (Lidocaine Viscous 2% 15 Ml Solution) 15 ml PO NOW ONE Stop: 10/08/20 13:43 Last Admin: 10/08/20 13:47 Dose: 15 ml Documented by: STEPHANI Vital Signs Vital signs: Vital Signs - 8 hr 10/08/20 12:22 10/08/20 13:04 10/08/20 13:05 Temperature 98.3 F Pulse Rate 93 H 81 80 Respiratory Rate 16 18 20 Blood Pressure 141/98 H 141/90 H Pulse Oximetry 96 96 96 10/08/20 13:30 10/08/20 14:00 10/08/20 14:30 Temperature Pulse Rate 73 75 62 Respiratory Rate 18 17 13 Blood Pressure 131/79 131/83 115/61 Pulse Oximetry 95 94 95 10/08/20 15:00 10/08/20 15:30 10/08/20 16:00 Temperature Pulse Rate 69 68 64 Respiratory Rate 15 15 16 Blood Pressure Pulse Oximetry 95 95 95 10/08/20 16:19 10/08/20 16:30 10/08/20 16:58 Temperature Pulse Rate 76 72 73 Respiratory Rate 32 H 18 13 Blood Pressure 115/77 147/87 H 147/87 H Pulse Oximetry 96 95 96 <Emily Morin MD - Last Filed: 10/08/20 19:35> Orders Ordered: ED Orders 10/08/20 12:27 XR chest 1V Stat EKG-12 Lead Stat 10/08/20 12:30 Complete Blood Count AUTO DIFF Stat Comprehensive Metabolic Panel Stat Lipase Stat Partial Thromboplastin Time Stat Prothrombin Time INR Stat Troponin & CK Cardiac Panel Stat 10/08/20 12:39 Ethanol (ETOH) Stat NT-proBNP (BNP-Adult 18+) Stat 10/08/20 12:50 D Dimer Stat 10/08/20 13:47 Urine Drug Screen, Rapid Stat 10/08/20 13:55 CT soft tissue neck w con Stat 10/08/20 14:30 Troponin & CK Cardiac Panel Stat Discontinued Medications Hydrocodone Bitart/Acetaminophen (Hydrocodone/Acet 5/325 Tablet) 1 tab PO NOW ONE Stop: 10/08/20 16:43 Last Admin: 10/08/20 16:45 Dose: 1 tab Documented by: STEPHANI Lidocaine HCl (Lidocaine Viscous 2% 15 Ml Solution) 15 ml PO NOW ONE Stop: 10/08/20 13:43 Last Admin: 10/08/20 13:47 Dose: 15 ml Documented by: STEPHANI Vital Signs Vital signs: Vital Signs - 8 hr 10/08/20 12:22 10/08/20 13:04 10/08/20 13:05 Temperature 98.3 F Pulse Rate 93 H 81 80 Respiratory Rate 16 18 20 Blood Pressure 141/98 H 141/90 H Pulse Oximetry 96 96 96 10/08/20 13:30 10/08/20 14:00 10/08/20 14:30 Temperature Pulse Rate 73 75 62 Respiratory Rate 18 17 13 Blood Pressure 131/79 131/83 115/61 Pulse Oximetry 95 94 95 10/08/20 15:00 10/08/20 15:30 10/08/20 16:00 Temperature Pulse Rate 69 68 64 Respiratory Rate 15 15 16 Blood Pressure Pulse Oximetry 95 95 95 10/08/20 16:19 10/08/20 16:30 10/08/20 16:58 Temperature Pulse Rate 76 72 73 Respiratory Rate 32 H 18 13 Blood Pressure 115/77 147/87 H 147/87 H Pulse Oximetry 96 95 96 MDM - Chest Pain <ROMARIO Tyson-BC - Last Filed: 10/08/20 16:51> Lab Data Attestation: I reviewed the patient's lab results. Result diagrams: 10/08/20 12:30 10/08/20 12:30 Labs: Lab Results 10/08/20 10/08/20 10/08/20 Range/Units 12:30 12:30 12:30 WBC 8.0 (4.5-11.0) X10^3/uL RBC 5.24 (4.5-5.9) X10^6/uL Hgb 16.8 (13.5-17.5) g/dL Hct 48.3 (41-53) % MCV 92.2 (80-100) fL MCH 32.0 (26-34) PG MCHC 34.7 (30-36) % RDW 12.6 (11.6-14.8) % Plt Count 190 (150-400) X10^3/uL Neut % (Auto) 48.9 L (50-75) % Lymph % (Auto) 35.6 (25-40) % [place] % (Auto) 10.8 (3-14) % Eos % (Auto) 3.2 (2-4) % Baso % (Auto) 1.5 (0-2) % Neut # (Auto) 3900 (8659-4613) /uL Lymph # (Auto) 2900 (6183-2328) /uL [place] # (Auto) 900 (0-900) /uL Eos # (Auto) 300 (0-450) /uL Baso # (Auto) 100 (0-100) /uL PT 11.0 (10.1-12.7) SECONDS INR 1.0 (0.9-1.3) APTT 30 (26.4-36.2) SECONDS D-Dimer (<230) ng/mL Sodium 138 (137-145) mmol/L Potassium 3.6 (3.4-5.1) mmol/L Chloride 104 (98-107) mmol/L Carbon Dioxide 26 (22-32) mmol/L BUN 23 H (9-20) mg/dL Creatinine 0.60 L (0.66-1.25) mg/dL Estimated GFR > 60.0 (>60) mL/min BUN/Creatinine Ratio 38.3 H (6-22) Glucose 97 (70-100) mg/dL Calcium 9.7 (8.4-10.2) mg/dL Total Bilirubin 0.6 (0.2-1.3) mg/dL AST 43 (17-59) IU/L ALT 54 H (<50) IU/L Alkaline Phosphatase 52 (38-126) U/L Total Creatine Kinase 85 (55-170) U/L CK-MB (CK-2) TNP CK-MB (CK-2) Rel Index TNP Troponin I < 0.012 (0.01-0.034) ng/mL NT-Pro-B Natriuret Pep (<125) pg/mL Total Protein 7.6 (6.3-8.2) g/dL Albumin 4.6 (3.5-5.0) g/dL Globulin 3.0 (1.7-4.1) g/dL Albumin/Globulin Ratio 1.5 (1.0-2.8) Lipase 167 (23-300) U/L U Opiates 300ng/mL cut (Negative) Ur Oxycodone Screen (Negative) Urine Methadone Screen (Negative) Ur Barbiturates Screen (Negative) U Tricyclic Antidepress (Negative) Ur Phencyclidine Scrn (Negative) Ur Amphetamines Screen (Negative) U Methamphetamines Scrn (Negative) Ur MDMA Scrn (Ecstasy) (Negative) U Benzodiazepines Scrn (Negative) Urine Cocaine Screen (Negative) U Marijuana (THC) Screen (Negative) Ethyl Alcohol ( - 10) mg/dL 10/08/20 10/08/20 10/08/20 Range/Units 12:39 12:50 13:47 WBC (4.5-11.0) X10^3/uL RBC (4.5-5.9) X10^6/uL Hgb (13.5-17.5) g/dL Hct (41-53) % MCV (80-100) fL MCH (26-34) PG MCHC (30-36) % RDW (11.6-14.8) % Plt Count (150-400) X10^3/uL Neut % (Auto) (50-75) % Lymph % (Auto) (25-40) % [place] % (Auto) (3-14) % Eos % (Auto) (2-4) % Baso % (Auto) (0-2) % Neut # (Auto) (0782-1340) /uL Lymph # (Auto) (1843-4477) /uL [place] # (Auto) (0-900) /uL Eos # (Auto) (0-450) /uL Baso # (Auto) (0-100) /uL PT (10.1-12.7) SECONDS INR (0.9-1.3) APTT (26.4-36.2) SECONDS D-Dimer < 200 (<230) ng/mL Sodium (137-145) mmol/L Potassium (3.4-5.1) mmol/L Chloride (98-107) mmol/L Carbon Dioxide (22-32) mmol/L BUN (9-20) mg/dL Creatinine (0.66-1.25) mg/dL Estimated GFR (>60) mL/min BUN/Creatinine Ratio (6-22) Glucose (70-100) mg/dL Calcium (8.4-10.2) mg/dL Total Bilirubin (0.2-1.3) mg/dL AST (17-59) IU/L ALT (<50) IU/L Alkaline Phosphatase (38-126) U/L Total Creatine Kinase (55-170) U/L CK-MB (CK-2) CK-MB (CK-2) Rel Index Troponin I (0.01-0.034) ng/mL NT-Pro-B Natriuret Pep 34 (<125) pg/mL Total Protein (6.3-8.2) g/dL Albumin (3.5-5.0) g/dL Globulin (1.7-4.1) g/dL Albumin/Globulin Ratio (1.0-2.8) Lipase (23-300) U/L U Opiates 300ng/mL cut Negative (Negative) Ur Oxycodone Screen Negative (Negative) Urine Methadone Screen Negative (Negative) Ur Barbiturates Screen Negative (Negative) U Tricyclic Antidepress Negative (Negative) Ur Phencyclidine Scrn Negative (Negative) Ur Amphetamines Screen Negative (Negative) U Methamphetamines Scrn Negative (Negative) Ur MDMA Scrn (Ecstasy) Negative (Negative) U Benzodiazepines Scrn Negative (Negative) Urine Cocaine Screen Negative (Negative) U Marijuana (THC) Screen Positive H (Negative) Ethyl Alcohol 55 H ( - 10) mg/dL 10/08/20 Range/Units 14:30 WBC (4.5-11.0) X10^3/uL RBC (4.5-5.9) X10^6/uL Hgb (13.5-17.5) g/dL Hct (41-53) % MCV (80-100) fL MCH (26-34) PG MCHC (30-36) % RDW (11.6-14.8) % Plt Count (150-400) X10^3/uL Neut % (Auto) (50-75) % Lymph % (Auto) (25-40) % [place] % (Auto) (3-14) % Eos % (Auto) (2-4) % Baso % (Auto) (0-2) % Neut # (Auto) (2873-1295) /uL Lymph # (Auto) (4040-7118) /uL [place] # (Auto) (0-900) /uL Eos # (Auto) (0-450) /uL Baso # (Auto) (0-100) /uL PT (10.1-12.7) SECONDS INR (0.9-1.3) APTT (26.4-36.2) SECONDS D-Dimer (<230) ng/mL Sodium (137-145) mmol/L Potassium (3.4-5.1) mmol/L Chloride (98-107) mmol/L Carbon Dioxide (22-32) mmol/L BUN (9-20) mg/dL Creatinine (0.66-1.25) mg/dL Estimated GFR (>60) mL/min BUN/Creatinine Ratio (6-22) Glucose (70-100) mg/dL Calcium (8.4-10.2) mg/dL Total Bilirubin (0.2-1.3) mg/dL AST (17-59) IU/L ALT (<50) IU/L Alkaline Phosphatase (38-126) U/L Total Creatine Kinase 71 (55-170) U/L CK-MB (CK-2) TNP CK-MB (CK-2) Rel Index TNP Troponin I < 0.012 (0.01-0.034) ng/mL NT-Pro-B Natriuret Pep (<125) pg/mL Total Protein (6.3-8.2) g/dL Albumin (3.5-5.0) g/dL Globulin (1.7-4.1) g/dL Albumin/Globulin Ratio (1.0-2.8) Lipase (23-300) U/L U Opiates 300ng/mL cut (Negative) Ur Oxycodone Screen (Negative) Urine Methadone Screen (Negative) Ur Barbiturates Screen (Negative) U Tricyclic Antidepress (Negative) Ur Phencyclidine Scrn (Negative) Ur Amphetamines Screen (Negative) U Methamphetamines Scrn (Negative) Ur MDMA Scrn (Ecstasy) (Negative) U Benzodiazepines Scrn (Negative) Urine Cocaine Screen (Negative) U Marijuana (THC) Screen (Negative) Ethyl Alcohol ( - 10) mg/dL Imaging Data CT scan - chest: Radiologist's Impression: [address] [place] [id number] ReportSigned Patient: Sebastian Mercedes R#: [id number]: 1970Acct:[id number]/Sex: 50 / MDate of Service: 10/08/20Loc: EDAccession Number: [id number] Procedure: XR chest 1V Ordering Provider: Emily Morin MD PROCEDURE: XR CHEST 1V INDICATIONS: chest pain TECHNIQUE: One view of the chest was acquired. COMPARISON: [facility], CT, CT CHEST WO CON, 11/18/2018, 11:27. [facility], CT, CT KIDNEY URETER BLADDER (KUB), 08/03/2020, 9:28. [facility], CR, XR CHEST 1V, 12/18/2019, 2:38. [facility], CR, CHEST 1 VIEW, 11/15/2016, 15:35. FINDINGS: Surgical changes and devices: Cholecystectomy clips. Lungs and pleura: Lungs are clear. No pleural effusions or pneumothorax. Mediastinum: Mediastinal contours appear normal. Heart size is normal. Bones and chest wall: No suspicious bony lesions. Overlying soft tissues appear unremarkable. IMPRESSION: No acute cardiopulmonary abnormality. Dictated by: Ruperto Dallas M.D. on 10/08/2020 at 12:19 Approved by: Ruperto Dallas M.D. on 10/08/2020 at 12:[address]: Radiologist's Impression: [address] [place] [id number] Scan ReportSigned Patient: Sebastian Mercedes R#: [id number]: 1970Acct:[id number]/Sex: 50 / MDate of Service: 10/08/20Loc: EDAccession Number: [id number] Procedure: CT soft tissue neck w con Ordering Provider: Nafisa Padron PROCEDURE: CT SOFT TISSUE NECK W CON INDICATIONS: dental infection, swelling down neck left side TECHNIQUE: After the administration of intravenous contrast, 3.0 mm axial sections acquired from the sella to the aortic arch. Additional oblique axial 3.0 mm sections acquired through the pharynx. 3 mm thick coronal and sagittal reformats were generated. For radiation dose reduction, the following was used: automated exposure control. COMPARISON: None. FINDINGS: Image quality: Excellent. Lymph nodes: No enlarged lymph nodes seen throughout the neck. Vessels: Visualized vasculature appears patent. Neck spaces: The oropharynx, nasopharynx, and pharynx demonstrate no mucosal lesions. The vocal cords, false vocal cords, pyriform sinuses, epiglottis, vallecula, and tongue base all appear normal. Extramucosal spaces appear unremarkable. Glands: The parotid and submandibular glands appear normal. Thyroid gland appears normal. Miscellaneous: Visualized brain and orbits appear normal. Lung apices appear clear. Superficial soft tissues appear normal. Bones: No suspicious bony lesions. Visualized sinuses and mastoids appear unremarkable. IMPRESSION: No area of soft tissue abscess or osteomyelitis is found. The scanning through the facial cutaneous and subcutaneous areas show no CT-detectable asymmetry that would suggest cellulitis. No adenopathy is found, no salivary gland inflammation or ductal dilatation is seen. Please note that dedicated pattern [place] dental films may detect periodontal disease below threshold for detection by CT scanning. Dictated by: Jules Kay M.D. on 10/08/2020 at 16:31 Approved by: Jules Kay M.D. on 10/08/2020 at 16:34 ECG Data Attestation: I personally reviewed and interpreted this ECG as follows: Interpretation: Sinus rhythm. Ventricular rate 82. P.r. interval 162. QRS [address] Morin MDM Narrative Medical decision making narrative: The patient is a 50-year-old male who presents with a chief complaint of heart pings and concerned about his dental infection not being improved despite 1 dose of penicillin earlier today. His EKG has no acute findings. His BNP is within normal limits, total troponin is negative, chest x-ray is negative, D-dimer is negative. Pain to palpation along left anterior chest wall at pains site is reassuring for musculoskeletal pain. Encourage patient to continue previously prescribed Toradol. Given the patient's worsening systemic symptoms of muscle aches and chills, CT was obtained to evaluate for possible abscess. This came back with no acute findings. Repeat troponin was negative as well. Encourage patient to continue taking his antibiotics, follow-up with primary care provider in the next few days as well as follow-up with dentist. Patient feels much improved throughout his stay in the ER, has no questions or concerns upon discharge and states understanding return precautions as well as follow-up care. <Emily Morin MD - Last Filed: 01/08/21 19:35> Lab Data Labs: Lab Results 10/08/20 10/08/20 10/08/20 Range/Units 12:30 12:30 12:30 WBC 8.0 (4.5-11.0) X10^3/uL RBC 5.24 (4.5-5.9) X10^6/uL Hgb 16.8 (13.5-17.5) g/dL Hct 48.3 (41-53) % MCV 92.2 (80-100) fL MCH 32.0 (26-34) PG MCHC 34.7 (30-36) % RDW 12.6 (11.6-14.8) % Plt Count 190 (150-400) X10^3/uL Neut % (Auto) 48.9 L (50-75) % Lymph % (Auto) 35.6 (25-40) % [place] % (Auto) 10.8 (3-14) % Eos % (Auto) 3.2 (2-4) % Baso % (Auto) 1.5 (0-2) % Neut # (Auto) 3900 (3294-3396) /uL Lymph # (Auto) 2900 (2424-1518) /uL [place] # (Auto) 900 (0-900) /uL Eos # (Auto) 300 (0-450) /uL Baso # (Auto) 100 (0-100) /uL PT 11.0 (10.1-12.7) SECONDS INR 1.0 (0.9-1.3) APTT 30 (26.4-36.2) SECONDS D-Dimer (<230) ng/mL Sodium 138 (137-145) mmol/L Potassium 3.6 (3.4-5.1) mmol/L Chloride 104 (98-107) mmol/L Carbon Dioxide 26 (22-32) mmol/L BUN 23 H (9-20) mg/dL Creatinine 0.60 L (0.66-1.25) mg/dL Estimated GFR > 60.0 (>60) mL/min BUN/Creatinine Ratio 38.3 H (6-22) Glucose 97 (70-100) mg/dL Calcium 9.7 (8.4-10.2) mg/dL Total Bilirubin 0.6 (0.2-1.3) mg/dL AST 43 (17-59) IU/L ALT 54 H (<50) IU/L Alkaline Phosphatase 52 (38-126) U/L Total Creatine Kinase 85 (55-170) U/L CK-MB (CK-2) TNP CK-MB (CK-2) Rel Index TNP Troponin I < 0.012 (0.01-0.034) ng/mL NT-Pro-B Natriuret Pep (<125) pg/mL Total Protein 7.6 (6.3-8.2) g/dL Albumin 4.6 (3.5-5.0) g/dL Globulin 3.0 (1.7-4.1) g/dL Albumin/Globulin Ratio 1.5 (1.0-2.8) Lipase 167 (23-300) U/L U Opiates 300ng/mL cut (Negative) Ur Oxycodone Screen (Negative) Urine Methadone Screen (Negative) Ur Barbiturates Screen (Negative) U Tricyclic Antidepress (Negative) Ur Phencyclidine Scrn (Negative) Ur Amphetamines Screen (Negative) U Methamphetamines Scrn (Negative) Ur MDMA Scrn (Ecstasy) (Negative) U Benzodiazepines Scrn (Negative) Urine Cocaine Screen (Negative) U Marijuana (THC) Screen (Negative) Ethyl Alcohol ( - 10) mg/dL 10/08/20 10/08/20 10/08/20 Range/Units 12:39 12:50 13:47 WBC (4.5-11.0) X10^3/uL RBC (4.5-5.9) X10^6/uL Hgb (13.5-17.5) g/dL Hct (41-53) % MCV (80-100) fL MCH (26-34) PG MCHC (30-36) % RDW (11.6-14.8) % Plt Count (150-400) X10^3/uL Neut % (Auto) (50-75) % Lymph % (Auto) (25-40) % [place] % (Auto) (3-14) % Eos % (Auto) (2-4) % Baso % (Auto) (0-2) % Neut # (Auto) (0494-6450) /uL Lymph # (Auto) (4703-0195) /uL [place]ardo # (Auto) (0-900) /uL Eos # (Auto) (0-450) /uL Baso # (Auto) (0-100) /uL PT (10.1-12.7) SECONDS INR (0.9-1.3) APTT (26.4-36.2) SECONDS D-Dimer < 200 (<230) ng/mL Sodium (137-145) mmol/L Potassium (3.4-5.1) mmol/L Chloride (98-107) mmol/L Carbon Dioxide (22-32) mmol/L BUN (9-20) mg/dL Creatinine (0.66-1.25) mg/dL Estimated GFR (>60) mL/min BUN/Creatinine Ratio (6-22) Glucose (70-100) mg/dL Calcium (8.4-10.2) mg/dL Total Bilirubin (0.2-1.3) mg/dL AST (17-59) IU/L ALT (<50) IU/L Alkaline Phosphatase (38-126) U/L Total Creatine Kinase (55-170) U/L CK-MB (CK-2) CK-MB (CK-2) Rel Index Troponin I (0.01-0.034) ng/mL NT-Pro-B Natriuret Pep 34 (<125) pg/mL Total Protein (6.3-8.2) g/dL Albumin (3.5-5.0) g/dL Globulin (1.7-4.1) g/dL Albumin/Globulin Ratio (1.0-2.8) Lipase (23-300) U/L U Opiates 300ng/mL cut Negative (Negative) Ur Oxycodone Screen Negative (Negative) Urine Methadone Screen Negative (Negative) Ur Barbiturates Screen Negative (Negative) U Tricyclic Antidepress Negative (Negative) Ur Phencyclidine Scrn Negative (Negative) Ur Amphetamines Screen Negative (Negative) U Methamphetamines Scrn Negative (Negative) Ur MDMA Scrn (Ecstasy) Negative (Negative) U Benzodiazepines Scrn Negative (Negative) Urine Cocaine Screen Negative (Negative) U Marijuana (THC) Screen Positive H (Negative) Ethyl Alcohol 55 H ( - 10) mg/dL 10/08/20 Range/Units 14:30 WBC (4.5-11.0) X10^3/uL RBC (4.5-5.9) X10^6/uL Hgb (13.5-17.5) g/dL Hct (41-53) % MCV (80-100) fL MCH (26-34) PG MCHC (30-36) % RDW (11.6-14.8) % Plt Count (150-400) X10^3/uL Neut % (Auto) (50-75) % Lymph % (Auto) (25-40) % Fajardo % (Auto) (3-14) % Eos % (Auto) (2-4) % Baso % (Auto) (0-2) % Neut # (Auto) (1032-5975) /uL Lymph # (Auto) (2391-2430) /uL Fajardo # (Auto) (0-900) /uL Eos # (Auto) (0-450) /uL Baso # (Auto) (0-100) /uL PT (10.1-12.7) SECONDS INR (0.9-1.3) APTT (26.4-36.2) SECONDS D-Dimer (<230) ng/mL Sodium (137-145) mmol/L Potassium (3.4-5.1) mmol/L Chloride (98-107) mmol/L Carbon Dioxide (22-32) mmol/L BUN (9-20) mg/dL Creatinine (0.66-1.25) mg/dL Estimated GFR (>60) mL/min BUN/Creatinine Ratio (6-22) Glucose (70-100) mg/dL Calcium (8.4-10.2) mg/dL Total Bilirubin (0.2-1.3) mg/dL AST (17-59) IU/L ALT (<50) IU/L Alkaline Phosphatase (38-126) U/L Total Creatine Kinase 71 (55-170) U/L CK-MB (CK-2) TNP CK-MB (CK-2) Rel Index TNP Troponin I < 0.012 (0.01-0.034) ng/mL NT-Pro-B Natriuret Pep (<125) pg/mL Total Protein (6.3-8.2) g/dL Albumin (3.5-5.0) g/dL Globulin (1.7-4.1) g/dL Albumin/Globulin Ratio (1.0-2.8) Lipase (23-300) U/L U Opiates 300ng/mL cut (Negative) Ur Oxycodone Screen (Negative) Urine Methadone Screen (Negative) Ur Barbiturates Screen (Negative) U Tricyclic Antidepress (Negative) Ur Phencyclidine Scrn (Negative) Ur Amphetamines Screen (Negative) U Methamphetamines Scrn (Negative) Ur MDMA Scrn (Ecstasy) (Negative) U Benzodiazepines Scrn (Negative) Urine Cocaine Screen (Negative) U Marijuana (THC) Screen (Negative) Ethyl Alcohol ( - 10) mg/dL Discharge Plan Departure Patient Disposition: Home Clinical Impression: Chest pain, atypical, Dental infection Instructions: DI for Atypical Chest Pain, DI for Dental Pain Activity Restrictions/Additional Instructions: Thank you for trusting us with your care today. As discussed, your lab work and cardiac evaluation came back well. Your neck CT came back well with no abscesses or identified infection. As discussed, please continue taking your antibiotics previously prescribed. I sent a small prescription of stronger pain medicine to [facility]. You have been prescribed narcotic medications. While on these medications you cannot drive or operate heavy machinery. Additionally you cannot sign legal documents or perform any duties such as this. Many people get constipated on narcotic medications so it would be advisable to discuss stool softeners with the pharmacist when you tack picker your prescription. As discussed, please follow-up with primary care provider next few days. I have included the contact information the [facility] health information resource consultant, they can be found a primary care provider in the area. Please come back to emergency department for any acute concerns Prescriptions: New hydrocodone-acetaminophen [[place]] 5-325 mg tablet 1 tab PO Q4-6H PRN (Reason: pain) Qty: 7 RF: 0 No Action ketorolac 10 mg tablet 10 mg PO TID PRN (Reason: pain) Qty: 14 RF: 0 penicillin V potassium 500 mg tablet 500 mg PO QID 10 Days Qty: 40 RF: 0 Referrals: [facility] [Outside] Aileen Tapia PA-C [Primary Care Provider] - <Emily Morin MD - Last Filed: 10/08/20 19:35> [facility] ED Attending Farhadature Attestation: I was immediately available in the department for consultation throughout this patient's visit. I agree with documentation as above. Emily Morin MD
[2020-10-08 13:43] LABS: Ethanol (ETOH) 55 mg/dL
[2020-10-08] MEDS: LIDOCAINE VISCOUS 2% 15 ML SOLUTION PO (13:47)
[2020-10-08 13:52] LABS: NT-proBNP (BNP-Adult 18+) 34 pg/mL (<125)
[2020-10-08 13:53] LABS: D Dimer < 200 ng/mL (<230)
--- NOTE | 2020-10-08 13:55 | DI.CT.S_ITS ---
PROCEDURE: CT SOFT TISSUE NECK W CON INDICATIONS: dental infection, swelling down neck left side TECHNIQUE: After the administration of intravenous contrast, 3.0 mm axial sections acquired from the sella to the aortic arch. Additional oblique axial 3.0 mm sections acquired through the pharynx. 3 mm thick coronal and sagittal reformats were generated. For radiation dose reduction, the following was used: automated exposure control. COMPARISON: None. FINDINGS: Image quality: Excellent. Lymph nodes: No enlarged lymph nodes seen throughout the neck. Vessels: Visualized vasculature appears patent. Neck spaces: The oropharynx, nasopharynx, and pharynx demonstrate no mucosal lesions. The vocal cords, false vocal cords, pyriform sinuses, epiglottis, vallecula, and tongue base all appear normal. Extramucosal spaces appear unremarkable. Glands: The parotid and submandibular glands appear normal. Thyroid gland appears normal. Miscellaneous: Visualized brain and orbits appear normal. Lung apices appear clear. Superficial soft tissues appear normal. Bones: No suspicious bony lesions. Visualized sinuses and mastoids appear unremarkable. IMPRESSION: No area of soft tissue abscess or osteomyelitis is found. The scanning through the facial cutaneous and subcutaneous areas show no CT-detectable asymmetry that would suggest cellulitis. No adenopathy is found, no salivary gland inflammation or ductal dilatation is seen. Please note that dedicated pattern [place] dental films may detect periodontal disease below threshold for detection by CT scanning. Dictated by: Jules Kay M.D. on 10/08/2020 at 16:31 Approved by: Jules Kay M.D. on 10/08/2020 at 16:34
[2020-10-08 14:01] LABS: UR Morphine/Opiate cutoff 300 Negative (Negative); Ur Creatinine Normal (Normal); Ur Specific Gravity Normal (Normal); Urine Amphetamines Negative (Negative); Urine Barbiturates Negative (Negative); Urine Benzodiazepines Negative (Negative); Urine Cocaine Negative (Negative); Urine MDMA Negative (Negative); Urine Methadone Negative (Negative); Urine Methamphetamines Negative (Negative); Urine Oxycodone Negative (Negative); Urine Phencyclidine Negative (Negative); Urine Tetrahydrocannabinol Positive (Negative); Urine Tricyclic Antidepressant Negative (Negative); Urine pH Normal (Normal)
[2020-10-08 15:06] LABS: Creatine Kinase 71 U/L (55-170)
[2020-10-08 15:19] LABS: Troponin I < 0.012 ng/mL (0.01-0.034)
[2020-10-08] MEDS: HYDROCODONE/ACET 5/325 TABLET 1 TAB PO (16:45)
== END 2020-10-08 17:00 | disposition home or self-care (01) ==
PROVIDERS: Emergency Medicine; Emergency Provider Nurse Practitioner Family; PCP Physician Assistant
DX: R07.89 Other chest pain (principal); K04.7 Periapical abscess without sinus; R22.1 Localized swelling, mass and lump, neck; Z87.442 Personal history of urinary calculi
CPT/HCPCS: 36415; 70491; 71045; 80053; 80305; 80320; 82550; 83690; 83880; 84484; 85025; 85379; 85610; 85730; 93005; 99284; Q9967

== ENCOUNTER → 2021-07-11 08:13 | Outpatient (CLI) | payer MEDICARE, MEDICAID, SELFPAY ==
[2021-07-11 09:29] LABS: Add Manual Diff / Slide Review NO; Basophils Absolute Auto 100 /uL (0-100); Eosinophils Absolute Auto 300 /uL (0-450); Eosinophils Percent Auto 3.4 % (2-4); Hematocrit 50.2 % (41-53); Hemoglobin 17.2 g/dL (13.5-17.5); Lymphocytes Absolute Auto 3800 /uL (1100-4500); Lymphocytes Percent Auto 48.4 % (25-40); Mean Corpuscular HGB Conc 34.3 % (30-36); Mean Corpuscular Volume 93.2 fL (80-100); Monocytes Absolute Auto 800 /uL (0-900); Monocytes Percent Auto 10.3 % (3-14); Neutrophils Absolute Auto 2900 /uL (1500-7000); Neutrophils Percent Auto 36.9 % (50-75); Platelet Count 207 X10^3/uL (150-400); Red Blood Cell Count 5.39 X10^6/uL (4.5-5.9); Red Cell Distribution Width 12.6 % (11.6-14.8); White Blood Cell Count 7.9 X10^3/uL (4.5-11.0)
[2021-07-11 10:15] LABS: Alanine Aminotransferase 38 IU/L (<50); Albumin 4.5 g/dL (3.5-5.0); Albumin Globulin Ratio 1.7 (1.0-2.8); Alkaline Phosphatase 56 U/L (38-126); Aspartate Aminotransferase 32 IU/L (17-59); BUN Creatinine Ratio 19.4 (6-22); Bilirubin Total 0.8 mg/dL (0.2-1.3); Blood Urea Nitrogen 14 mg/dL (9-20); Carbon Dioxide 25 mmol/L (22-32); Chloride 105 mmol/L (98-107); Cholesterol 214 mg/dL (140-199); Estimated Glomerular Filt Rate > 60.0 mL/min (>60); Globulin 2.7 g/dL (1.7-4.1); Glucose 107 mg/dL (70-100); HDL Cholesterol 71 mg/dL (40-60); HEMOLYSIS < 15 (0-50); LDL Cholesterol Calculated 116 mg/dL (<100); Potassium 4.1 mmol/L (3.4-5.1); Sodium 139 mmol/L (137-145); Total Protein 7.2 g/dL (6.3-8.2); Triglycerides 133 mg/dL (35-150)
== END ==
PROVIDERS: PCP Physician Assistant; Referring Provider Internal Medicine Cardiovascular Disease; Visit Provider Internal Medicine Cardiovascular Disease
DX: I10 Essential (primary) hypertension (principal); I48.20 Chronic atrial fibrillation, unspecified
CPT/HCPCS: 36415; 80053; 80061; 84443; 85025

== ENCOUNTER 2022-01-19 08:01 | Emergency (ER) | payer MEDICARE, MEDICAID, SELFPAY ==
[2022-01-19 08:10] VITALS: BP 141/103; PULSE 99; RESP 18; TEMP 36.7; O2SAT 96; BMI 28.2
[2022-01-19 09:58] VITALS: BP 132/90; PULSE 103; O2SAT 96
[2022-01-19 10:00] VITALS: BP 150/94; PULSE 100; O2SAT 95
[2022-01-19 10:04] VITALS: PULSE 95; RESP 16; O2SAT 96
--- NOTE | 2022-01-19 10:24 | ED_ITS ---
HPI - Eye Problem General Chief complaint: Eye Problems Stated complaint: headache, numbness to right side of face Time Seen by Provider: 01/19/22 10:14 Source: patient Mode of arrival: Ambulatory History of Present Illness HPI Narrative: The patient had a pimple on his upper eyelid about 8 days ago. He developed numbness to the right upper lid, but not to the nose. He denies numbness in the right upper lid, as well as right forehead. He now has a searing pain at 1 spot in the right upper forehead. He has no trauma at the site. There are no skin lesions, no rash. He has no flattening of the features the right face. He has no rhinorrhea, no watery discharge from his right eye. He has no lack of ability closing his right eye. There is no rash on his scalp, or neck pain. He has no URI symptoms, no sinus pressure, no ear pain. He denies recent, acute illness. He has no history of chronic headaches. Related Data Previous Rx's Medication Instructions Recorded hydrocodone 5 mg-acetaminophen 325 1 tab PO Q4-6H PRN #7 tab 10/08/20 mg tablet ([place]) ketorolac 10 mg tablet 10 mg PO TID PRN #14 tab 10/08/20 acyclovir 800 mg tablet 800 mg PO 5XD #50 tab 01/19/22 prednisone 20 mg tablet 60 mg PO DAILY 5 Days tab 01/19/22 Allergies Allergy/AdvReac Type Severity Reaction Status Date / Time No Known Drug Allergies Allergy Verified 10/08/20 12:22 Patient History Medical History Breathing-related sleep disorder Erythrocytosis Paroxysmal atrial fibrillation Smoking Ureterolithiasis Surgical History History of cholecystectomy Family History Family/Other Loud snoring Obesity Hypertension Heart disease Depression Anxiety Father Alcohol abuse Mother Loud snoring Sleep apnea Obesity Hypertension Diabetes mellitus Depression Anxiety Alcohol abuse Family/Other Depression Anxiety Social History Smoking Status: Current every day smoker alcohol intake: current substance use type: marijuana Smoking Status: Current every day smoker alcohol intake frequency: 3 or more drinks per day Substance Use Type: marijuana Exam Initial Vital Signs Initial Vital Signs: Vital Signs Temperature 98.1 F 01/19/22 08:10 Pulse Rate 99 H 01/19/22 08:10 Respiratory Rate 18 01/19/22 08:10 Blood Pressure 141/103 H 01/19/22 08:10 Pulse Oximetry 96 01/19/22 08:10 Const General: cooperative, healthy appearing and No acute distress HENMT Head: normocephalic, atraumatic and other (No facial droop. Asymmetry of skin lines on the right forehead.) Mouth: oral mucosae normal Throat: posterior oropharynx normal Eyes General: appearance normal, both eyes and all related structures Visual Chaudhary: normal visual chaudhary by confrontation Alignment and Position: alignment normal Periorbital: periorbital findings normal Eyelids: eyelids normal Conjunctivae: conjunctivae normal Sclera: sclerae normal Pupils: PERRL EOM: EOM intact bilaterally Other: Eyelids are normal. Neck Neck: full ROM, No anterior neck swelling and No lymphadenopathy Skin General: no rashes or lesions noted Neuro General: patient alert, patient awake, patient oriented x3 and no focal motor deficits Sensory Exam: no sensory deficits noted Course Course Course Narrative: The patient's most significant finding is numbness in the facial nerve distribution. He also does not have the findings obviously associated with Novak's palsy, however his symptoms have evolved, there is not an illness or injury associated with the symptoms. I am suspecting an evolving, parsley displayed version of Novak's palsy. He will be treated with acyclovir and prednisone. Orders Ordered: Discontinued Medications Acyclovir (Acyclovir 200 Mg Capsule) 800 mg PO NOW ONE Stop: 01/19/22 10:24 Last Admin: 01/19/22 10:44 Dose: 800 mg Documented by: [email or web address] Prednisone (Prednisone 20 Mg Tablet) 60 mg PO NOW ONE Stop: 01/19/22 10:24 Last Admin: 01/19/22 10:45 Dose: 60 mg Documented by: SUSHIL Vital Signs Vital signs: Vital Signs - 8 hr 01/19/22 08:10 01/19/22 09:58 01/19/22 10:00 Temperature 98.1 F Pulse Rate 99 H 103 H 100 H Respiratory Rate 18 Blood Pressure 141/103 H 132/90 150/94 H Pulse Oximetry 96 96 95 01/19/22 10:04 01/19/22 10:30 Temperature Pulse Rate 95 H 96 H Respiratory Rate 16 18 Blood Pressure Pulse Oximetry 96 95 Discharge Plan Departure Patient Disposition: Home Clinical Impression: Novak palsy Activity Restrictions/Additional Instructions: Prednisone 60 mg daily for 5 days. Acyclovir 8 her mg 5 times daily for 10 days. Tylenol or Advil as needed. Recheck in 3-4 days if not improved. Prescriptions: New acyclovir 800 mg tablet 800 mg PO 5XD Qty: 50 0RF Rx Instructions: space evenly during waking hours prednisone 20 mg tablet 60 mg PO DAILY 5 Days 0RF No Action ketorolac 10 mg tablet 10 mg PO TID PRN (Reason: pain) Qty: 14 0RF hydrocodone-acetaminophen [[place]] 5-325 mg tablet 1 tab PO Q4-6H PRN (Reason: pain) Qty: 7 0RF Referrals: Aileen Tapia PA-C [Primary Care Provider] -
[2022-01-19 10:30] VITALS: PULSE 96; RESP 18; O2SAT 95
[2022-01-19] MEDS: ACYCLOVIR 200 MG CAPSULE 800 MG PO (10:44)
[2022-01-19] MEDS: predniSONE 20 MG TABLET 60 MG PO (10:45)
== END 2022-01-19 11:10 | disposition home or self-care (01) ==
PROVIDERS: Emergency Provider Emergency Medicine; PCP Physician Assistant
DX: G51.0 Bell's palsy (principal); F17.200 Nicotine dependence, unspecified, uncomplicated
CPT/HCPCS: 99283

== ENCOUNTER 2022-04-30 06:47 | Emergency (ER) | payer MEDICARE, MEDICAID, SELFPAY ==
[2022-04-30] VITALS (10 sets, daily range): BP systolic 137–159; BP diastolic 85–103; PULSE 77–97; RESP 14–29; TEMP 36.7; O2SAT 94–100; BMI 29.5
--- NOTE | 2022-04-30 07:03 | DI.RAD.S_ITS ---
PROCEDURE: XR CHEST 1V INDICATIONS: chest pain TECHNIQUE: One view of the chest was acquired. COMPARISON: [facility], CR, XR CHEST 1V, 10/08/2020, 12:56. FINDINGS: Surgical changes and devices: None. Lungs and pleura: Lungs are clear. No pleural effusions or pneumothorax. Mediastinum: Mediastinal contours appear normal. Heart size is normal. Bones and chest wall: No suspicious bony lesions. Overlying soft tissues appear unremarkable. IMPRESSION: No evidence acute pulmonary process. Dictated by: Julio Darby M.D. on 04/30/2022 at 6:47 Approved by: Julio Darby M.D. on 04/30/2022 at 6:47
[2022-04-30 07:15] LABS: Add Manual Diff / Slide Review NO; Basophils Absolute Auto 100 /uL (0-100); Basophils Percent Auto 1.1 % (0-2); Eosinophils Absolute Auto 100 /uL (0-450); Eosinophils Percent Auto 1.2 % (2-4); Hematocrit 47.3 % (41-53); Hemoglobin 16.9 g/dL (13.5-17.5); Lymphocytes Absolute Auto 2600 /uL (1100-4500); Lymphocytes Percent Auto 29.7 % (25-40); Mean Corpuscular HGB Conc 35.7 % (30-36); Mean Corpuscular Volume 92.6 fL (80-100); Monocytes Absolute Auto 700 /uL (0-900); Monocytes Percent Auto 8.4 % (3-14); Neutrophils Absolute Auto 5200 /uL (1500-7000); Neutrophils Percent Auto 59.6 % (50-75); Platelet Count 203 X10^3/uL (150-400); Red Blood Cell Count 5.11 X10^6/uL (4.5-5.9); Red Cell Distribution Width 12.9 % (11.6-14.8); White Blood Cell Count 8.7 X10^3/uL (4.5-11.0)
[2022-04-30 07:22] LABS: Alanine Aminotransferase 86 IU/L (<50); Albumin 4.7 g/dL (3.5-5.0); Albumin Globulin Ratio 1.7 (1.0-2.8); Alkaline Phosphatase 55 U/L (38-126); Aspartate Aminotransferase 68 IU/L (17-59); BUN Creatinine Ratio 20.3 (6-22); Blood Urea Nitrogen 13 mg/dL (9-20); Calcium 9.1 mg/dL (8.4-10.2); Carbon Dioxide 17 mmol/L (22-32); Chloride 104 mmol/L (98-107); Creatine Kinase 63 U/L (55-170); Estimated Glomerular Filt Rate > 60 mL/min (>60); Globulin 2.7 g/dL (1.7-4.1); Glucose 113 mg/dL (70-100); HEMOLYSIS 17 (0-50); Lipase 225 U/L (23-300); Potassium 3.4 mmol/L (3.4-5.1); Sodium 135 mmol/L (137-145); Total Protein 7.4 g/dL (6.3-8.2)
[2022-04-30 07:34] LABS: NT-proBNP (BNP-Adult 18+) 23 pg/mL (<125); Troponin I < 0.012 ng/mL (0.01-0.034)
--- NOTE | 2022-04-30 07:36 | ED_ITS ---
HPI - SOB/Dyspnea General Chief Complaint: Chest Pain Stated Complaint: sob/chest pain Time Seen by Provider: 04/30/22 06:53 Source: patient Mode of arrival: Ambulatory History of Present Illness HPI Narrative: Patient is a 52-year-old male who has history of possible atrial fibrillation although he says cardiology never found anything, he is a pack-a-day smoker for the last 40 years presents today with shortness of breath. He says it has been ongoing for number of years. He thinks maybe it has gotten worse but can not give me a timeline of when. He feels like his xiphoid is pulsating. He denies any orthopnea or peripheral edema. He says he does have shortness of breath with exertion. He feels like he is having chest pain but really seems to be complaining of shortness of breath. He denies fever chills or cough. He feels like he has a lymph node that is swollen. He says that all of the symptoms happened to him in a very regular basis. He has been seen by Cardiology he is only taking a statin. Related Data Previous Rx's Medication Instructions Recorded hydrocodone 5 mg-acetaminophen 325 1 tab PO Q4-6H PRN pain #7 tabs 10/08/20 mg tablet ([place]) ketorolac 10 mg tablet 10 mg PO TID PRN pain #14 tabs 10/08/20 acyclovir 800 mg tablet 800 mg PO 5XD #50 tabs 01/19/22 albuterol sulfate 90 mcg/actuation 2 puff inhalation Q4-6H PRN 04/30/22 aerosol inhaler shortness of breath or wheezing #8.5 grams doxycycline hyclate 100 mg capsule 100 mg PO BID #20 caps 04/30/22 prednisone 20 mg tablet 40 mg PO DAILY #10 tabs 04/30/22 Allergies Allergy/AdvReac Type Severity Reaction Status Date / Time No Known Drug Allergies Allergy Verified 10/08/20 12:22 Review of Systems Review of Systems Narrative: GENERAL: Denies chills, fatigue, malaise, fever, sweats, travel HEENT: Denies sinus pain, ear pain, sore throat, difficulty swallowing, neck pain RESPIRATORY: See HPI CARDIOVASCULAR: See HPI GASTROINTESTINAL: Denies nausea, vomiting, abdominal pain, diarrhea, constipation, melena. : Denies dysuria, frequency, incontinence, hematuria, urinary retention, flank pain. MUSCULOSKELETAL: Denies weakness, joint pain, or bony pain SKIN: No rash, no erythema, no pruritus NEUROLOGIC: Denies weakness, dizziness, headache, numbness, change in speech, confusion PSYCHIATRIC: No concerning psychosocial issues. 12 point review of systems is negative except for those stated above and HPI Patient History Medical History (Updated 04/30/22 @ 09:13 by Siobhan Xiong DO) Breathing-related sleep disorder Erythrocytosis Paroxysmal atrial fibrillation Smoking Ureterolithiasis Surgical History History of cholecystectomy Family History Family/Other Loud snoring Obesity Hypertension Heart disease Depression Anxiety Father Alcohol abuse Mother Loud snoring Sleep apnea Obesity Hypertension Diabetes mellitus Depression Anxiety Alcohol abuse Family/Other Depression Anxiety Social History Smoking Status: Current every day smoker alcohol intake: current substance use type: marijuana Smoking Status: Current every day smoker alcohol intake frequency: 3 or more drinks per day Substance Use Type: does not use Exam Initial Vital Signs Initial Vital Signs: Vital Signs Temperature 98.0 F 04/30/22 06:50 Pulse Rate 91 H 04/30/22 06:50 Respiratory Rate 22 04/30/22 06:50 Blood Pressure 141/103 H 04/30/22 06:50 Pulse Oximetry 98 04/30/22 06:50 Oxygen Delivery Method 04/30/22 06:50 GENERAL: Alert 52-year-old and in no acute distress. HEENT: Head atraumatic,EOMI, pupils reactive, face symmetric, moist mucous membranes CARDIOVASCULAR: Regular rate and rhythm without murmurs, rubs or gallops. RESPIRATORY: Slight expiratory wheeze speaks in full sentences no obvious respiratory distress ABDOMEN: Soft, nontender. Normoactive bowel sounds all 4 quadrants. No guarding or rebound. EXTREMITIES: Normal range of motion, no clubbing or edema. Neurovascularly intact NEUROLOGICAL: Alert and oriented x4.Normal gait and speech. SKIN: Warm, dry, no laceration, no petechiae, no rashes or lesions. Course Orders Ordered: Discontinued Medications Albuterol (Albuterol Hfa Prepack) 1 box [facility] SEEINSTR ONE Stop: 04/30/22 09:21 Last Admin: 04/30/22 09:59 Dose: 1 box Documented By: GIANNI Albuterol/Ipratropium (Albuterol/Ipratropium 3 Ml Ampul) 3 ml INH NOW ONE Stop: 04/30/22 07:39 Last Admin: 04/30/22 07:48 Dose: 3 ml Documented By: TRAY Vital Signs Vital signs: Vital Signs - 8 hr 04/30/22 06:50 04/30/22 07:48 04/30/22 07:38 Temperature 98.0 F Pulse Rate 91 H 79 77 Respiratory Rate 22 20 14 Blood Pressure 141/103 H Pulse Oximetry 98 100 96 Oxygen Delivery Method Room Air Room Air Fraction of Inspired Oxygen 21 04/30/22 08:00 04/30/22 08:04 04/30/22 08:04 Temperature Pulse Rate 79 88 Respiratory Rate 16 21 Blood Pressure 147/89 H Pulse Oximetry 96 97 Oxygen Delivery Method Fraction of Inspired Oxygen MDM - SOB/Dyspnea Lab Data Result diagrams: 04/30/22 07:04 04/30/22 07:04 Labs: Lab Results 04/30/22 04/30/22 04/30/22 Range/Units 07:04 07:04 07:04 WBC 8.7 (4.5-11.0) X10^3/uL RBC 5.11 (4.5-5.9) X10^6/uL Hgb 16.9 (13.5-17.5) g/dL Hct 47.3 (41-53) % MCV 92.6 (80-100) fL MCH 33.0 (26-34) PG MCHC 35.7 (30-36) % RDW 12.9 (11.6-14.8) % Plt Count 203 (150-400) X10^3/uL Neut % (Auto) 59.6 (50-75) % Lymph % (Auto) 29.7 (25-40) % [place] % (Auto) 8.4 (3-14) % Eos % (Auto) 1.2 L (2-4) % Baso % (Auto) 1.1 (0-2) % Neut # (Auto) 5200 (7901-8848) /uL Lymph # (Auto) 2600 (4923-8234) /uL Calloway # (Auto) 700 (0-900) /uL Eos # (Auto) 100 (0-450) /uL Baso # (Auto) 100 (0-100) /uL D-Dimer < 200 (<230) ng/mL Sodium 135 L (137-145) mmol/L Potassium 3.4 (3.4-5.1) mmol/L Chloride 104 (98-107) mmol/L Carbon Dioxide 17 L (22-32) mmol/L BUN 13 (9-20) mg/dL Creatinine 0.64 L (0.66-1.25) mg/dL Estimated GFR > 60 (>60) mL/min BUN/Creatinine Ratio 20.3 (6-22) Glucose 113 H (70-100) mg/dL Lactate (0.7-2.1) mmol/L Calcium 9.1 (8.4-10.2) mg/dL Total Bilirubin 1.0 (0.2-1.3) mg/dL AST 68 H (17-59) IU/L ALT 86 H (<50) IU/L Alkaline Phosphatase 55 (38-126) U/L Total Creatine Kinase 63 (55-170) U/L CK-MB (CK-2) TNP CK-MB (CK-2) Rel Index TNP Troponin I < 0.012 (0.01-0.034) ng/mL NT-Pro-B Natriuret Pep 23 (<125) pg/mL Total Protein 7.4 (6.3-8.2) g/dL Albumin 4.7 (3.5-5.0) g/dL Globulin 2.7 (1.7-4.1) g/dL Albumin/Globulin Ratio 1.7 (1.0-2.8) Lipase 225 (23-300) U/L 04/30/22 Range/Units 07:04 WBC (4.5-11.0) X10^3/uL RBC (4.5-5.9) X10^6/uL Hgb (13.5-17.5) g/dL Hct (41-53) % MCV (80-100) fL MCH (26-34) PG MCHC (30-36) % RDW (11.6-14.8) % Plt Count (150-400) X10^3/uL Neut % (Auto) (50-75) % Lymph % (Auto) (25-40) % C[place] % (Auto) (3-14) % Eos % (Auto) (2-4) % Baso % (Auto) (0-2) % Neut # (Auto) (3955-8362) /uL Lymph # (Auto) (3805-8099) /uL [place] # (Auto) (0-900) /uL Eos # (Auto) (0-450) /uL Baso # (Auto) (0-100) /uL D-Dimer (<230) ng/mL Sodium (137-145) mmol/L Potassium (3.4-5.1) mmol/L Chloride (98-107) mmol/L Carbon Dioxide (22-32) mmol/L BUN (9-20) mg/dL Creatinine (0.66-1.25) mg/dL Estimated GFR (>60) mL/min BUN/Creatinine Ratio (6-22) Glucose (70-100) mg/dL Lactate 1.7 (0.7-2.1) mmol/L Calcium (8.4-10.2) mg/dL Total Bilirubin (0.2-1.3) mg/dL AST (17-59) IU/L ALT (<50) IU/L Alkaline Phosphatase (38-126) U/L Total Creatine Kinase (55-170) U/L CK-MB (CK-2) CK-MB (CK-2) Rel Index Troponin I (0.01-0.034) ng/mL NT-Pro-B Natriuret Pep (<125) pg/mL Total Protein (6.3-8.2) g/dL Albumin (3.5-5.0) g/dL Globulin (1.7-4.1) g/dL Albumin/Globulin Ratio (1.0-2.8) Lipase (23-300) U/L Imaging Data Chest x-ray: Radiologist's Impression: XRay Report Signed Patient: Sebastian Mercedes MR#: [id number] : 1970 Acct:[id number] Age/Sex: 52 / M Date of Service: 04/30/22 Loc: ED Accession Number: [id number] ?? Procedure: XR chest 1V Ordering Provider: Siobhan Xiong D.O. PROCEDURE:? XR CHEST 1V ? INDICATIONS:? chest pain ? TECHNIQUE:? One view of the chest was acquired.? ? COMPARISON:? [facility], CR, XR CHEST 1V, 10/08/2020, 12:56. ? FINDINGS:? ? Surgical changes and devices:? None.? ? Lungs and pleura:? Lungs are clear.? No pleural effusions or pneumothorax.? ? Mediastinum:? Mediastinal contours appear normal.? Heart size is normal.? ? Bones and chest wall:? No suspicious bony lesions.? Overlying soft tissues appear unremarkable.? ? IMPRESSION:? No evidence acute pulmonary process. ? ? ? Dictated by: Julio Darby M.D. on 04/30/2022 at 6:47 ? ? ECG Data Interpretation: Normal sinus rhythm rate 93 UT interval 150 QRS [address] changes mild artifact noted similar to prior EKG in 2020 MDM Narrative Medical decision making narrative: Patient seems to have chronic ongoing problems difficult to tell what is new today. Blood work and x-ray are overall reassuring. He is noted to have an occasional PVC on the monitor which Brittani may not be contributing to his symptoms. He was given albuterol nebulizer which did seem to help. He is quite scared he might of a heart attack we discussed stopping smoking. At this time blood work is overall reassuring D-dimer is negative. Discharge Plan Departure Patient Disposition: Home Clinical Impression: Acute exacerbation of chronic obstructive pulmonary disease (COPD), Asymptomatic PVCs Instructions: Chronic Obstructive Pulmonary Disease, DI for Premature Ventricular Beats Activity Restrictions/Additional Instructions: *You have been diagnosed with COPD exacerbation, PVC *What to do: At this time her blood work and x-ray were overall reassuring. I do encourage you to stop smoking *Continue to take medications as directed--> SENT TO [facility] Albuterol inhaler 1-2 puffs every 4 hours if needed for shortness of breath Prednisone 40 mg once a day for 5 days Doxycycline 100 mg twice daily for 7 days *Follow up with your primary care provider in 2-3 days or call [phone] *Return to ER if you should have increasing shortness of breath chest pain palpitations dizziness lightheadedness or any new, worsening or concerning symptoms Prescriptions: New doxycycline hyclate 100 mg capsule 100 mg PO BID Qty: 20 0RF prednisone 20 mg tablet 40 mg PO DAILY Qty: 10 0RF albuterol sulfate 90 mcg/actuation HFA aerosol inhaler 2 puff INHALATION Q4-6H PRN (Reason: shortness of breath or wheezing) Qty: 8.5 0RF No Action ketorolac 10 mg tablet 10 mg PO TID PRN (Reason: pain) Qty: 14 0RF hydrocodone-acetaminophen [[place]] 5-325 mg tablet 1 tab PO Q4-6H PRN (Reason: pain) Qty: 7 0RF acyclovir 800 mg tablet 800 mg PO 5XD Qty: 50 0RF Rx Instructions: space evenly during waking hours Referrals: Aileen Tapia PA-C [Primary Care Provider] - Visit Report Forms: Patient Portal/API
[2022-04-30] MEDS: ALBUTEROL/IPRATROPIUM 3 ML AMPUL INH (07:48)
[2022-04-30 07:55] LABS: Lactate (Lactic Acid) 1.7 mmol/L (0.7-2.1)
[2022-04-30 07:56] LABS: D Dimer < 200 ng/mL (<230)
[2022-04-30] MEDS: ALBUTEROL HFA PREPACK 1 BOX MISC (09:59)
== END 2022-04-30 09:59 | disposition home or self-care (01) ==
PROVIDERS: Emergency Provider Emergency Medicine; PCP Physician Assistant
DX: J44.1 Chronic obstructive pulmonary disease with (acute) exacerbation (principal); I49.3 Ventricular premature depolarization
CPT/HCPCS: 36415; 71045; 80053; 82550; 83605; 83690; 83880; 84484; 85025; 85379; 93005; 94640; 99284

== ENCOUNTER → 2023-08-10 12:31 | Outpatient (CLI) | payer MEDICARE, MEDICAID, SELFPAY ==
--- NOTE | 2023-08-10 | DI.US.S_ITS ---
PROCEDURE: US ABDOMEN COMPLETE INDICATIONS: ELEVATED LIVER FUNCTION TEST TECHNIQUE: Real-time scanning was performed of the abdominal and retroperitoneal organs, with image documentation. COMPARISON: [facility], US, US ABDOMEN COMPLETE, 07/03/2019, 7:58. [facility], [place], ABDOMEN COMPLETE, 02/28/2007, 12:31. FINDINGS: Liver: Liver is normal in size and homogeneous in echotexture, diffusely hyperechoic consistent with fatty infiltration. Gallbladder: Previously resected Biliary ducts: Intrahepatic bile ducts are non-dilated. Extrahepatic bile duct caliber measures 5.0 mm. Normal is 6-7 mm or less in diameter, or 10 mm or less post-cholecystectomy. There are small simple appearing cysts, 1 at each kidney. Pancreas: Visualized portions of the pancreas are sonographically normal. Spleen: Spleen is normal in size and homogeneous in echotexture. Kidneys: Kidneys are normal in size and echotexture. Right kidney measures 15.3 cm long; left kidney measures 14.6 cm long. No hydronephrosis or nephrolithiasis. No solid masses. Aorta: Visualized aorta is normal in caliber at less than 3 cm. Iliacs: Proximal common iliac arteries are normal in caliber at less than 2.5 cm. IVC: Intrahepatic inferior vena cava is patent. Miscellaneous: No free abdominal fluid. IMPRESSION: Fatty infiltration involving the liver parenchyma, the liver itself is not significantly enlarged. Bile ducts are not dilated, prior cholecystectomy. Dictated by: Jules Kay M.D. on 08/10/2023 at 13:52 Approved by: Jules Kay M.D. on 08/10/2023 at 13:54
== END ==
PROVIDERS: PCP Physician Assistant; Referring Provider Nurse Practitioner Family; Visit Provider Nurse Practitioner Family
DX: K76.0 Fatty (change of) liver, not elsewhere classified (principal); R74.01 Elevation of levels of liver transaminase levels; N28.1 Cyst of kidney, acquired; Z90.49 Acquired absence of other specified parts of digestive tract
CPT/HCPCS: 76700

== ENCOUNTER → 2023-09-12 08:08 | Outpatient (CLI) | payer MEDICARE, MEDICAID, SELFPAY ==
--- NOTE | 2023-09-12 | DI.US.S_ITS ---
PROCEDURE: US EXTREMITY NONVASC UPPER LT INDICATIONS: left arm pain, enlarged lymph nodes TECHNIQUE: Real-time scanning was performed of the left upper arm, with image documentation. COMPARISON: None. FINDINGS: Focused ultrasound examination of anterior aspect of left upper arm at patient's reported area of palpable lumps shows 2 enlarged lymph nodes in distal left upper arm soft tissue measures 3.6 x 1 x 1.7 cm and 1.5 x 0.6 x 2.6 cm in size. IMPRESSION: Mildly enlarged lymph nodes seen in anterior left upper arm soft tissue and are of indeterminate etiology. Clinical and sonographic follow-up is recommended. Dictated by: Facundo Blood M.D. on 09/12/2023 at 16:38 Approved by: Facundo Blood M.D. on 09/12/2023 at 16:40
--- NOTE | 2023-09-12 08:18 | DI.CT.S_ITS ---
PROCEDURE: CT CHEST WO CON INDICATIONS: CURRENT SMOKER, CHEST PAIN TECHNIQUE: Noncontrast 5 mm thick sections acquired from the pulmonary apices to the posterior costophrenic angles. 1 mm lung window, 5 mm thick coronal and sagittal and 7 mm axial MIP reformats were then acquired. For radiation dose reduction, the following was used: automated exposure control, adjustment of mA and/or kV according to patient size. COMPARISON: [facility], CT, CT CHEST WO CON, 11/18/2018, 11:27. FINDINGS: Image quality: Diagnostic. Lungs and pleura: No acute air space opacities. Right minor fissure thickening or nodule measuring 0.8 x 0.5 cm, (3/199), unchanged since 2019. Minimal emphysematous change. No pleural effusions or pneumothorax. Central and peripheral airways are patent and normal in caliber. Mediastinum: Heart size is normal. Moderate coronary artery calcifications. No pericardial effusion. No mediastinal adenopathy by size criteria. Thoracic aorta and central pulmonary arteries are normal in size. Esophagus is normal in caliber. No hiatal hernia. Bones and chest wall: No suspicious bony lesions. No vertebral body compression fractures. No axillary or supraclavicular adenopathy by size criteria. No thyroid nodules which require sonographic follow up, per consensus guidelines. Upper Abdomen: Hepatic steatosis. No adrenal nodule. IMPRESSION: 1. No acute airspace opacity. No pleural effusion. 2. Right minor fissure pulmonary nodule with a mean diameter 0.7 cm is unchanged. Favor a intrapulmonary lymph node. 3. Moderate coronary artery calcifications. Minimal emphysematous change. 4. No adenopathy. 5. Hepatic steatosis. Patient may qualify for lung cancer screening chest CT in 12 months. Dictated by: Ruperto Dallas M.D. on 09/12/2023 at 8:53 Approved by: Ruperto Dallas M.D. on 09/12/2023 at 9:03
== END ==
PROVIDERS: PCP Nurse Practitioner Family; Referring Provider Nurse Practitioner Family; Visit Provider Nurse Practitioner Family
DX: Z12.2 Encounter for screening for malignant neoplasm of respiratory organs (principal); R07.9 Chest pain, unspecified; R91.1 Solitary pulmonary nodule; F17.210 Nicotine dependence, cigarettes, uncomplicated; M79.622 Pain in left upper arm; R59.0 Localized enlarged lymph nodes; I25.10 Atherosclerotic heart disease of native coronary artery without angina pectoris; K76.0 Fatty (change of) liver, not elsewhere classified
CPT/HCPCS: 71250; 76882

== ENCOUNTER → 2023-09-21 13:28 | Outpatient (CLI) | payer MEDICARE, MEDICAID, SELFPAY ==
--- NOTE | 2023-09-21 | DI.RAD.S_ITS ---
PROCEDURE: XR CHEST 2V INDICATIONS: dyspnea, solitary pulmonary nodule TECHNIQUE: 2 views of the chest were acquired. COMPARISON: [facility], CR, XR CHEST 1V, 04/30/2022, 7:10. [facility], CR, XR CHEST 1V, 10/08/2020, 12:56. FINDINGS: Surgical changes and devices: None. Lungs and pleura: Lungs are clear. No pleural effusions or pneumothorax. Mediastinum: Mediastinal contours are normal. Heart size is normal. Bones and chest wall: No suspicious bony abnormalities. Soft tissues appear unremarkable. IMPRESSION: No acute cardiopulmonary abnormality is seen. Dictated by: Raymond Arechiga M.D. on 09/21/2023 at 14:56 Approved by: Raymond Arechiga M.D. on 09/21/2023 at 14:56
[2023-09-21 14:45] LABS: Add Manual Diff / Slide Review NO; Basophils Absolute Auto 100 /uL (0-100); Basophils Percent Auto 0.8 % (0-2); Eosinophils Absolute Auto 100 /uL (0-450); Eosinophils Percent Auto 1.7 % (2-4); Hematocrit 50.6 % (41-53); Hemoglobin 17.6 g/dL (13.5-17.5); Lymphocytes Absolute Auto 2700 /uL (1100-4500); Lymphocytes Percent Auto 34.7 % (25-40); Mean Corpuscular HGB Conc 34.8 % (30-36); Mean Corpuscular Hemoglobin 33.3 PG (26-34); Mean Corpuscular Volume 95.8 fL (80-100); Monocytes Absolute Auto 800 /uL (0-900); Monocytes Percent Auto 10.4 % (3-14); Neutrophils Absolute Auto 4000 /uL (1500-7000); Neutrophils Percent Auto 52.4 % (50-75); Platelet Count 168 X10^3/uL (150-400); Red Blood Cell Count 5.28 X10^6/uL (4.5-5.9); Red Cell Distribution Width 12.6 % (11.6-14.8); White Blood Cell Count 7.7 X10^3/uL (4.5-11.0)
[2023-09-21 15:13] LABS: Lipase 189 U/L (23-300)
[2023-09-21 15:23] LABS: NT-proBNP (BNP-Adult 18+) < 20 pg/mL (<125)
[2023-09-25 19:41] LABS: Erythropoietin 3.1 mIU/mL (2.6-18.5)
== END ==
PROVIDERS: PCP Nurse Practitioner Family; Referring Provider Nurse Practitioner Family; Visit Provider Nurse Practitioner Family
DX: R07.9 Chest pain, unspecified (principal); R06.00 Dyspnea, unspecified; I10 Essential (primary) hypertension; R10.11 Right upper quadrant pain; D58.2 Other hemoglobinopathies; R91.1 Solitary pulmonary nodule
CPT/HCPCS: 36415; 71046; 82668; 83690; 83735; 83880; 85025

== ENCOUNTER → 2023-10-16 07:45 | Outpatient (CLI) | payer MEDICARE, MEDICAID, SELFPAY ==
--- NOTE | 2023-10-16 07:47 | DI.ECHO.S_ITS ---
[facility] +---------+ : : [address] [place] : : : : [id number] : : : : Phone: [phone] Echocardiogram Report + :Name: RULA MCMAHON Study Date: 10/16/2023 Height: 74 in : :[facility] ReadingLocation: Weight: 222 lb : : Gender: Male BSA: 2.3 m2 : :: 1970 Age: 53 yrs BP: 147/104 mmHg: :Reason For Study: CHEST PAIN RADICULOPATHY, CERVICAL REGION : :Ordering Physician: CANDIDO CORONADO, : :IVELISSE SIFUENTES Performed By: Helena Lamar : :Referring: IVELISSE LIN : + Interpretation Summary 1) Normal left ventricular size, wall motion, and systolic function (EF 55- 60%). 2) Normal right ventricular size and function. 3) No significant valvular abnormalities. 4) Compared to the Echo done 03/10/2020, no significant change. Procedure: A two-dimensional transthoracic echocardiogram with color flow and Doppler was performed. The study quality was technically adequate. Comparison is made with the echocardiogram of 03/10/2020. The patient was in sinus rhythm with heart rates between 67-90 bpm during the exam. Occasional EKG artifact throughout. Left Ventricle: The left ventricle is normal in size and wall thickness. The ejection fraction is estimated to be 55-60%. Left ventricular systolic function appears normal without focal wall motion abnormalities. Diastolic parameters suggest a relaxation abnormality of the left ventricle, consistent with probable normal filling pressures. Right Ventricle: The right ventricle is normal in size and function. Atria: The left atrial size is normal. Right atrial size is normal. There is no Doppler evidence for an interatrial shunt. Mitral Valve: The mitral valve is normal in structure and function. There is no mitral regurgitation noted. Aortic Valve: The aortic valve is trileaflet. The aortic valve opens well. There is no aortic valve stenosis. No aortic regurgitation is present. Tricuspid Valve: The tricuspid valve is normal. There is trace tricuspid regurgitation. Pulmonary artery pressures cannot be estimated because of the lack of a measurable TR jet velocity but the IVC suggests a CVP of around 3 mmHg. Pulmonic Valve: The pulmonic valve is not well seen, but is grossly normal. There is mild pulmonic regurgitation. Great Vessels: The aortic root is normal size. The dimensions of the ascending aorta are normal. The IVC is of normal diameter and collapses greater than 50% with a sniff. This suggests a low right atrial pressure of 3 mm Hg. Pericardium/ Pleura There is no pericardial effusion. There is no pleural effusion. MMode/2D Measurements & Calculations LVIDd: 4.6 cm LVOT diam: 2.4 cm LVIDs: 3.2 cm Ao root diam: 3.8 cm FS: 30.7 % asc Aorta Diam: 3.7 cm IVSd: 0.93 cm Ao Arch Diam (Prox Trans): 3.1 cm LVPWd: 0.98 cm LV barrios. diameter/BSA (cm/m^2): 2.0 LV sys. diameter/BSA (cm/m^2): 1.4 LA A2 area: 17.2 cm2 RA long axis: 4.7 cm LA A4 area: 14.4 cm2 RA area: 14.6 cm2 LA length (vol): 5.4 cm RA vol: 38.3 ml LA vol: 39.1 ml RA : 16.9 ml/m2 LA vol index: 17.2 ml/m2 IVC diam: 1.9 cm RVD1 (basal): 3.7 cm RVD2 (mid): 3.3 cm TAPSE: 1.9 cm Doppler Measurements & Calculations Ao V2 max: 123.9 cm/sec LVOT Max Fabrice: 111.2 cm/sec Ao V2 mean: 89.5 cm/sec LV V1 max P.9 mmHg Ao max P.1 mmHg LV V1 VTI: 21.5 cm Ao mean P.5 mmHg FAINA(I,D): 3.9 cm2 Ao V2 VTI: 23.8 cm FAINA(V,D): 3.9 cm2 sev ratio: 0.90 FAINA indexed to BSA (cm^2/m^2): 1.7 MV E max fabrice: 77.7 cm/sec PA V2 max: 83.2 cm/sec MV A max fabrice: 45.7 cm/sec PA V2 mean: 68.0 cm/sec MV E/A: 1.7 PA mean P.9 mmHg Med Peak E' Fabrice: 6.5 cm/sec PA pr(Accel): 29.3 mmHg E/E' med: 11.9 Lat Peak E' Fabrice: 10.8 cm/sec E/E' lat: 7.2 E/e' average: 9.6 MV dec time: 0.19 sec SV(LVOT): 93.4 ml Reading Physician:12:17 PM
--- NOTE | 2023-10-16 07:47 | DI.MRI.S_ITS ---
PROCEDURE: MR CERVICAL SPINE WO/W CON INDICATIONS: CHEST PAIN Radiculopathy, cervical region TECHNIQUE: Noncontrast sagittal T1 spin echo and T2 fast spin echo, sagittal STIR, foraminal oblique sagittal T2 fast spin echo, axial gradient echo or T2 fast spin echo through the cervical spine. After the administration of contrast, axial and sagittal T1 spin echo with fat saturation through the cervical spine. COMPARISON: [facility], MR, MR CERVICAL SPINE WO CON, 10/29/2018, 15:25. FINDINGS: Image quality: Excellent. Alignment and curvature: There is normal bony alignment. Marrow: Marrow is normal in overall signal, without suspicious enhancement. Spinal cord: Visualized spinal cord has normal size and signal. No cerebellar tonsillar herniation. No abnormal intramedullary enhancement. Paraspinous soft tissues: No paravertebral masses or suspicious enhancement. Discs: Multilevel scattered minimal to mild disc desiccation most severe at C5-6. C2-3: No disc bulge, spinal stenosis or foraminal narrowing. No interval change. C3-4: Mild disc bulge with superimposed posterior central protrusion. There is indentation of the anterior thecal sac slightly more prominent when compared to prior exam. Minimal right foraminal narrowing, unchanged. C4-5: Mild disc bulge with superimposed protrusion. There is indentation of the anterior thecal sac as well as cord slightly more prominent. Minimal to mild bilateral foraminal narrowing, similar versus slightly progressive. C5-6: Mild disc bulge with flid-jx-ldbuieip spinal stenosis, slightly progressive. Moderate to severe left and moderate right foraminal narrowing with uncovertebral hypertrophy, minimally progressive. C6-7: Mild disc bulge with mild spinal stenosis. Mild bilateral foraminal narrowing with uncovertebral hypertrophy, slightly progressive. C7-T1: No disc bulge, spinal stenosis or foraminal narrowing. IMPRESSION: Multilevel degenerative changes with areas of progression as above. Multilevel spinal stenosis most severe at C5-6 secondary to disc bulge. Multilevel foraminal narrowing most severe at C5-6 secondary to uncovertebral arthropathy. Dictated by: Tiara Remy M.D. on 10/16/2023 at 17:23 Approved by: Tiara Remy M.D. on 10/16/2023 at 17:29
== END ==
PROVIDERS: PCP Nurse Practitioner Family; Referring Provider Nurse Practitioner Family; Visit Provider Nurse Practitioner Family
DX: R07.9 Chest pain, unspecified (principal); I37.1 Nonrheumatic pulmonary valve insufficiency; M47.22 Other spondylosis with radiculopathy, cervical region; M48.02 Spinal stenosis, cervical region; M50.122 Cervical disc disorder at C5-C6 level with radiculopathy
CPT/HCPCS: 72156; 93306; A9579

== ENCOUNTER → 2023-11-19 09:21 | Outpatient (CLI) | payer MEDICARE, OTHER, MEDICAID, SELFPAY | PROVIDERS: PCP Nurse Practitioner Family; Referring Provider Internal Medicine Critical Care Medicine; Visit Provider Internal Medicine Critical Care Medicine | DX: R06.00 Dyspnea, unspecified (principal); R53.83 Other fatigue; Z72.0 Tobacco use; J42 Unspecified chronic bronchitis | CPT/HCPCS: 94060; 94726; 94729 ==

== ENCOUNTER → 2024-04-18 12:06 | Outpatient (CLI) | payer MEDICARE, MEDICAID, SELFPAY ==
--- NOTE | 2024-04-18 | DI.CT.S_ITS ---
PROCEDURE: CT CERVICAL SPINE WO CON INDICATIONS: NECK PAIN, NUMBNESS AND TINGLING OF RIGHT HAND TECHNIQUE: Noncontrast 3 mm thick sections acquired from the skull base to the T4 level. Sagittal and coronal reformats were then constructed. For radiation dose reduction, the following was used: automated exposure control, adjustment of mA and/or kV according to patient size. COMPARISON: [facility], CT, CT SOFT TISSUE NECK W CON, 10/08/2020, 14:47. [facility], MR, MR CERVICAL SPINE WO/W CON, 10/16/2023, 9:43. FINDINGS: Image quality: This examination is somewhat limited by quantum mottle artifact. Bones: No fractures or dislocations. Visualized superior ribs are intact. Focal degenerative change is seen involving the C1-C2 interface anteriorly. Mild disc space narrowing can be seen at C5-C6, with associated endplate irregularity and sclerosis. Milder degenerative changes are seen elsewhere. Soft tissues: Prevertebral soft tissues are normal in thickness. No paravertebral hematomas. No apical pneumothoraces. Atherosclerotic calcification is noted. IMPRESSION: Focal C5-C6 degenerative change can be seen by plain film. The degenerative changes are better seen on the prior MRI. Dictated by: Vladislav Lane M.D. on 04/18/2024 at 14:01 Approved by: Vladislav Lane M.D. on 04/18/2024 at 14:03
== END ==
PROVIDERS: PCP Nurse Practitioner Family; Referring Provider Orthopaedic Surgery Orthopaedic Surgery of the Spine; Visit Provider Orthopaedic Surgery Orthopaedic Surgery of the Spine
DX: M54.2 Cervicalgia (principal); R20.0 Anesthesia of skin; R20.2 Paresthesia of skin; M47.12 Other spondylosis with myelopathy, cervical region
CPT/HCPCS: 72125

== ENCOUNTER → 2024-05-26 09:35 | Outpatient (CLI) | payer MEDICARE, MEDICAID, SELFPAY ==
[2024-05-26 11:19] LABS: Add Manual Diff / Slide Review NO; Basophils Absolute Auto 100 /uL (0-100); Basophils Percent Auto 0.9 % (0-2); Eosinophils Absolute Auto 100 /uL (0-450); Eosinophils Percent Auto 1.6 % (2-4); Hematocrit 49.7 % (41-53); Hemoglobin 17.3 g/dL (13.5-17.5); Lymphocytes Absolute Auto 2300 /uL (1100-4500); Lymphocytes Percent Auto 29.9 % (25-40); Mean Corpuscular HGB Conc 34.8 % (30-36); Mean Corpuscular Hemoglobin 32.8 PG (26-34); Mean Corpuscular Volume 94.3 fL (80-100); Monocytes Absolute Auto 700 /uL (0-900); Neutrophils Absolute Auto 4400 /uL (1500-7000); Neutrophils Percent Auto 58.6 % (50-75); Platelet Count 200 X10^3/uL (150-400); Red Blood Cell Count 5.26 X10^6/uL (4.5-5.9); Red Cell Distribution Width 12.7 % (11.6-14.8); White Blood Cell Count 7.5 X10^3/uL (4.5-11.0)
[2024-05-26 11:41] LABS: Alanine Aminotransferase 80 IU/L (<50); Albumin 4.7 g/dL (3.5-5.0); Albumin Globulin Ratio 1.7 (1.0-2.8); Alkaline Phosphatase 51 U/L (38-126); Aspartate Aminotransferase 75 IU/L (17-59); BUN Creatinine Ratio 21.4 (6-22); Bilirubin Total 1.4 mg/dL (0.2-1.3); Blood Urea Nitrogen 15 mg/dL (9-20); Calcium 9.4 mg/dL (8.4-10.2); Carbon Dioxide 20 mmol/L (22-32); Chloride 103 mmol/L (98-107); Estimated Glomerular Filt Rate > 60 mL/min (>60); Ethanol (ETOH) 59 mg/dL; Globulin 2.8 g/dL (1.7-4.1); Glucose 136 mg/dL (70-100); HEMOLYSIS < 15 (0-50); Lipase 168 U/L (23-300); Magnesium 1.9 mg/dL (1.6-2.3); Potassium 3.3 mmol/L (3.4-5.1); Sodium 137 mmol/L (137-145); Total Protein 7.5 g/dL (6.3-8.2)
[2024-05-26 11:49] LABS: NT-proBNP (BNP-Adult 18+) < 20 pg/mL (<125)
[2024-05-26 12:47] LABS: Folate 7.5 ng/mL (2.76-20.0); Vitamin B12 395 pg/mL (239-931)
== END ==
PROVIDERS: PCP Nurse Practitioner Family
DX: R20.2 Paresthesia of skin (principal); R06.00 Dyspnea, unspecified; I10 Essential (primary) hypertension; K90.9 Intestinal malabsorption, unspecified; D58.2 Other hemoglobinopathies; R10.11 Right upper quadrant pain; R07.9 Chest pain, unspecified; E44.0 Moderate protein-calorie malnutrition; R20.0 Anesthesia of skin
CPT/HCPCS: 36415; 80053; 80320; 82306; 82607; 82668; 82746; 83690; 83735; 83880; 84425; 85025

== ENCOUNTER 2024-05-31 03:41 | Emergency (ER) | payer MEDICARE, MEDICAID, SELFPAY ==
[2024-05-31] VITALS (9 sets, daily range): BP systolic 83–118; BP diastolic 54–78; PULSE 77–147; RESP 18–29; TEMP 37.1; O2SAT 93–98; BMI 28.2
--- NOTE | 2024-05-31 03:45 | EKG_ITS ---
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
--- NOTE | 2024-05-31 03:50 | ED.GENADULT ---
HPI - General Adult General Chief complaint: Arrhythmia/Palpitations Stated complaint: afib Time Seen by Provider: 05/31/24 03:41 Source: patient Mode of arrival: EMS Limitations: no limitations History of Present Illness HPI narrative: Patient is a 54-year-old male. Does have history of paroxysmal atrial fibrillation. Several years ago he had an episode of atrial fibrillation that he was seen in the emergency department. He stated that he converted before any interventions were performed. He has had a couple episodes since then but they have been short-lived and never required a visit to the emergency department. He states that this morning he was woken from sleep approximately 2 hours prior to arrival here in the emergency department with his heart beating fast. Some lightheadedness. He went to bed last night without the symptoms. He tried the normal things that he does at home such as Valsalva maneuvers to try to fix the irregular heart rhythm but was unsuccessful. He contacted EMS. He received diltiazem prior to arrival which improved his heart rate from the 160s 170s down to the 130s but still in AFib. Related Data Home Medications Medication Instructions Recorded Confirmed aspirin 325 mg tablet 325 mg PO DAILY 11/01/23 11/01/23 diltiazem HCl 180 mg 180 mg PO DAILY 11/01/23 11/01/23 capsule,extended release 24 hr tiotropium 2.5 mcg-olodaterol 2.5 2 puff inhalation DAILY 11/01/23 11/01/23 mcg/actuation mist for inhalation Previous Rx's Medication Instructions Recorded albuterol sulfate 90 mcg/actuation 2 puff inhalation Q4-6H PRN 04/30/22 aerosol inhaler shortness of breath or wheezing #8.5 grams prednisone 20 mg tablet 20 mg PO DAILY #10 tabs 11/01/23 rivaroxaban 20 mg tablet (Xarelto) 20 mg PO DAILY #30 tabs 05/31/24 Allergies Allergy/AdvReac Type Severity Reaction Status Date / Time No Known Drug Allergies Allergy Verified 11/01/23 15:09 Review of Systems Review of Systems ROS Unobtainable: All systems reviewed & are unremarkable except as noted in HPI and below Patient History Medical History Ureterolithiasis Paroxysmal atrial fibrillation Breathing-related sleep disorder Erythrocytosis Smoking Surgical History History of cholecystectomy Family History Family/Other Loud snoring Obesity Hypertension Heart disease Depression Anxiety Father Alcohol abuse Mother Loud snoring Sleep apnea Obesity Hypertension Diabetes mellitus Depression Anxiety Alcohol abuse Family/Other Depression Anxiety Social History Smoking Status: Current every day smoker alcohol intake: current substance use type: marijuana Smoking Status: Current every day smoker alcohol intake frequency: 3 or more drinks per day Substance Use Type: does not use Exam Initial Vital Signs Initial Vital Signs: Vital Signs Temperature 98.8 F 05/31/24 03:55 Pulse Rate 147 H 05/31/24 03:55 Respiratory Rate 18 05/31/24 03:55 Blood Pressure 93/67 05/31/24 03:55 Pulse Oximetry 98 05/31/24 03:55 Oxygen Delivery Method Room Air 05/31/24 03:55 Const General: cooperative, comfortable and No ill appearing HENMT Head: normal to inspection and normocephalic Resp Effort & Inspection: normal respiratory effort Auscultation: clear to auscultation bilaterally Cardio Rate: tachycardic Rhythm: abnormal rhythm GI Inspection: normal to inspection Skin General: no rashes or lesions noted Neuro General: patient alert, patient awake and moves all extremities Procedures Cardioversion Consent Signed: Yes Indication: Atrial fibrillation Stability: Stable Number of attempts (shocks): 1 Joules used: 200 Cardiac rhythm post-cardioversion: Sinus rhythm Procedural Sedation Consent signed: Yes Time out performed: Yes Indication: cardioversion ASA Class: III Mallampati Airway Classification: Class II Preparation: telemetry monitor applied, pulse oximeter, capnometry used, supplemental O2 applied, suction/airway equipment at bedside and IV secured Fentanyl: IV Fentanyl dose (mcg): 12 IV Propofol dose (mg): 70 Intraservice time/total sedation time (min): 10 ED Sedation Level: Moderate (Concious) Patient Tolerated Procedure: Well and No complications Complications: none Course Orders Ordered: ED Orders 05/31/24 03:30 Complete Blood Count AUTO DIFF Stat Comprehensive Metabolic Panel Stat Lipase Stat Magnesium Stat Troponin & CK Cardiac Panel Stat 05/31/24 03:45 EKG-12 Lead Stat EKG-12 Lead Stat 05/31/24 04:36 EKG-12 Lead Stat Sodium Chloride (Normal Saline 0.9%) 1,000 mls @ 125 mls/hr IV CONT STARLA Last Admin: 05/31/24 04:26 Dose: 125 mls/hr Documented By: JEFF Discontinued Medications Fentanyl (Fentanyl 100 Mcg/2 Ml Inj) 12.5 mcg IV NOW ONE Stop: 05/31/24 04:19 Last Admin: 05/31/24 04:24 Dose: 12.5 mcg Documented By: JEFF Amiodarone HCl/Dextrose (Nexterone) 150 mg in 100 mls @ 600 mls/hr IV NOW ONE; Protocol Stop: 05/31/24 03:59 Last Infusion: 05/31/24 04:14 Dose: Infused Documented By: Admin: 05/31/24 03:55 Dose: 600 mls/hr Documented By: JEFF Propofol (Propofol 200 Mg/20 Ml Vial) 100 mg 1 mg/kg (100 mg) IV NOW ONE Stop: 05/31/24 04:19 Last Admin: 05/31/24 04:48 Dose: 70 mg Documented By: JEFF Rivaroxaban (Rivaroxaban 10 Mg Tablet) 20 mg PO NOW ONE Stop: 05/31/24 05:08 Vital Signs Vital signs: Vital Signs - 8 hr 05/31/24 03:55 05/31/24 04:00 05/31/24 04:14 Temperature 98.8 F Pulse Rate 147 H 129 H 112 H Respiratory Rate 18 18 19 Blood Pressure 93/67 83/55 L 91/54 L Pulse Oximetry 98 95 94 Oxygen Delivery Method Room Air Room Air 05/31/24 04:15 05/31/24 04:15 05/31/24 04:30 Temperature Pulse Rate 124 H 131 H Respiratory Rate 24 23 Blood Pressure 91/54 L Pulse Oximetry 93 98 Oxygen Delivery Method 05/31/24 04:30 05/31/24 04:35 05/31/24 04:35 Temperature Pulse Rate 79 Respiratory Rate 20 Blood Pressure 104/67 95/61 Pulse Oximetry 95 Oxygen Delivery Method 05/31/24 04:40 05/31/24 04:40 05/31/24 04:45 Temperature Pulse Rate 84 77 Respiratory Rate 18 27 H Blood Pressure 118/78 Pulse Oximetry 97 95 Oxygen Delivery Method 05/31/24 04:45 05/31/24 05:00 05/31/24 05:00 Temperature Pulse Rate 77 Respiratory Rate 29 H Blood Pressure 104/68 101/63 Pulse Oximetry 96 Oxygen Delivery Method Medical Decision Making Medical Records Medical records reviewed: Yes I reviewed the patient's medical records. Lab Data Lab results reviewed: Yes I reviewed the patient's lab results. 05/31/24 03:30 05/31/24 03:30 Labs: Lab Results 05/31/24 Range/Units 03:30 WBC 8.0 (4.5-11.0) X10^3/uL RBC 5.02 (4.5-5.9) X10^6/uL Hgb 16.5 (13.5-17.5) g/dL Hct 48.3 (41-53) % MCV 96.2 (80-100) fL MCH 32.8 (26-34) PG MCHC 34.1 (30-36) % RDW 12.9 (11.6-14.8) % Plt Count 219 (150-400) X10^3/uL Neut % (Auto) 32.5 L (50-75) % Lymph % (Auto) 53.4 H (25-40) % [place] % (Auto) 11.1 (3-14) % Eos % (Auto) 1.8 L (2-4) % Baso % (Auto) 1.2 (0-2) % Neut # (Auto) 2600 (9765-6084) /uL Lymph # (Auto) 4300 (3631-6303) /uL [place] # (Auto) 900 (0-900) /uL Eos # (Auto) 100 (0-450) /uL Baso # (Auto) 100 (0-100) /uL Sodium 139 (137-145) mmol/L Potassium 3.1 L (3.4-5.1) mmol/L Chloride 104 (98-107) mmol/L Carbon Dioxide 24 (22-32) mmol/L BUN 13 (9-20) mg/dL Creatinine 0.60 L (0.66-1.25) mg/dL Estimated GFR > 60 (>60) mL/min BUN/Creatinine Ratio 21.7 (6-22) Glucose 122 H (70-100) mg/dL Calcium 8.9 (8.4-10.2) mg/dL Magnesium 2.2 (1.6-2.3) mg/dL Total Bilirubin 0.5 (0.2-1.3) mg/dL AST 60 H (17-59) IU/L ALT 67 H (<50) IU/L Alkaline Phosphatase 59 (38-126) U/L Total Creatine Kinase 64 (55-170) U/L Troponin I < 0.012 (0.01-0.034) ng/mL Total Protein 7.2 (6.3-8.2) g/dL Albumin 4.3 (3.5-5.0) g/dL Globulin 2.9 (1.7-4.1) g/dL Albumin/Globulin Ratio 1.5 (1.0-2.8) Lipase 355 H D (23-300) U/L ECG Data Attestation: I personally reviewed and interpreted this ECG as follows: Interpretation: Presentation EKG Atrial fibrillation Ventricular rate 113 Left axis deviation Normal QRS Nonspecific ST T wave changes Post cardioversion EKG Sinus rhythm Ventricular rate of 82 Left axis deviation Normal QRS Normal QTC No ST T wave changes MDM Narrative Medical decision making narrative: Patient arrived in AFib with RVR. Onset less than 6 hours ago. Patient was stable. Heart rate improved with diltiazem. He was given amiodarone. Heart rate improved but continued to be in AFib. Discussed options to include rhythm control versus rate control. He was a candidate for rhythm control. After the discussion of the risks and benefits patient opted for sedation and cardioversion. He was sedated and cardioverted successfully. He stated that afterwards he had a complete resolution of all of his presenting symptoms. I advised the patient that it is important that he contact his primary care doctor for follow-up as he was going to need a referral to see Cardiology. We discussed the importance of starting him on anticoagulation for the next 30 days. He was given a dose of Xarelto here in the emergency department and a prescription was sent to the pharmacy of his choice. He was given return precautions. He expressed understanding and agreement with the plan. Discharge Plan Departure Patient Disposition: Home Clinical Impression: Paroxysmal atrial fibrillation Instructions: DI for Atrial Fibrillation Activity Restrictions/Additional Instructions: It is important that you contact your primary care doctor for a follow-up. You most likely going to need a referral to see Cardiology. Continue to take all of your medications as directed. We do need to start you on a new medicine called Xarelto. This is a blood thinning medicine that will help decrease the risks of a stroke. It is a medicine that is taken 1 time a day. I recommend that you look up? Xarelto co-pay card? on the Internet and fill out the information. This will generate a ?card? that you can take to your pharmacy when you fill the prescription. This greatly reduces the cost of this medication. Return to the emergency department for new or worsening symptoms. Prescriptions: New Xarelto 20 mg tablet 20 mg PO DAILY Qty: 30 0RF Rx Instructions: must administer with evening meal No Action albuterol sulfate 90 mcg/actuation HFA aerosol inhaler 2 puff INHALATION Q4-6H PRN (Reason: shortness of breath or wheezing) Qty: 8.5 0RF diltiazem HCl 180 mg capsule,extended release 24hr 180 mg PO DAILY tiotropium-olodaterol 2.5-2.5 mcg/actuation mist 2 puff inhalation DAILY aspirin 325 mg tablet 325 mg PO DAILY prednisone 20 mg tablet 20 mg PO DAILY Qty: 10 0RF Rx Instructions: Take 2 tabs every day for 5 days Referrals: Salome Duenas ARNP [Primary Care Provider] - Stand Alone Forms: Patient Portal/API
[2024-05-31] MEDS: AMIODARONE 150 MG/100 ML PIGGYBACK 600 MG IV (03:55)
[2024-05-31 04:11] LABS: Add Manual Diff / Slide Review NO; Basophils Absolute Auto 100 /uL (0-100); Basophils Percent Auto 1.2 % (0-2); Eosinophils Absolute Auto 100 /uL (0-450); Eosinophils Percent Auto 1.8 % (2-4); Hematocrit 48.3 % (41-53); Hemoglobin 16.5 g/dL (13.5-17.5); Lymphocytes Absolute Auto 4300 /uL (1100-4500); Lymphocytes Percent Auto 53.4 % (25-40); Mean Corpuscular HGB Conc 34.1 % (30-36); Mean Corpuscular Hemoglobin 32.8 PG (26-34); Mean Corpuscular Volume 96.2 fL (80-100); Monocytes Absolute Auto 900 /uL (0-900); Monocytes Percent Auto 11.1 % (3-14); Neutrophils Absolute Auto 2600 /uL (1500-7000); Neutrophils Percent Auto 32.5 % (50-75); Platelet Count 219 X10^3/uL (150-400); Red Blood Cell Count 5.02 X10^6/uL (4.5-5.9); Red Cell Distribution Width 12.9 % (11.6-14.8)
[2024-05-31 04:20] LABS: Creatine Kinase 64 U/L (55-170)
[2024-05-31 04:22] LABS: Alanine Aminotransferase 67 IU/L (<50); Albumin 4.3 g/dL (3.5-5.0); Albumin Globulin Ratio 1.5 (1.0-2.8); Alkaline Phosphatase 59 U/L (38-126); Aspartate Aminotransferase 60 IU/L (17-59); BUN Creatinine Ratio 21.7 (6-22); Bilirubin Total 0.5 mg/dL (0.2-1.3); Blood Urea Nitrogen 13 mg/dL (9-20); Calcium 8.9 mg/dL (8.4-10.2); Carbon Dioxide 24 mmol/L (22-32); Chloride 104 mmol/L (98-107); Estimated Glomerular Filt Rate > 60 mL/min (>60); Globulin 2.9 g/dL (1.7-4.1); Glucose 122 mg/dL (70-100); HEMOLYSIS < 15 (0-50); Lipase 355 U/L (23-300); Magnesium 2.2 mg/dL (1.6-2.3); Potassium 3.1 mmol/L (3.4-5.1); Sodium 139 mmol/L (137-145); Total Protein 7.2 g/dL (6.3-8.2)
[2024-05-31] MEDS: fentaNYL 100 MCG/2 ML INJ 12.5 MCG IV (04:24)
[2024-05-31] MEDS: SODIUM CHLORIDE 0.9% 1,000 ML 125 ML IV (04:26)
[2024-05-31 04:33] LABS: Troponin I < 0.012 ng/mL (0.01-0.034)
--- NOTE | 2024-05-31 04:42 | EKG_ITS ---
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
[2024-05-31] MEDS: propofoL 200 MG/20 ML VIAL 100 MG IV (04:48)
[2024-05-31] MEDS: RIVAROXABAN 10 MG TABLET 20 MG PO (05:14)
== END 2024-05-31 05:19 | disposition home or self-care (01) ==
PROVIDERS: Emergency Provider Emergency Medicine; PCP Nurse Practitioner Family
DX: I48.0 Paroxysmal atrial fibrillation (principal); Z79.01 Long term (current) use of anticoagulants
CPT/HCPCS: 80053; 82550; 83690; 83735; 84484; 85025; 92960; 93005; 96361; 96365; 96375; 99152; 99284; 99285; J0282; J2704; J3010

== ENCOUNTER 2024-08-12 07:07 | Emergency (ER) | payer MEDICARE, MEDICAID, SELFPAY ==
[2024-08-12] VITALS (17 sets, daily range): BP systolic 133–167; BP diastolic 80–115; PULSE 79–95; RESP 13–39; TEMP 36.8; O2SAT 90–96; BMI 29.2
--- NOTE | 2024-08-12 07:26 | DI.CT.S_ITS ---
PROCEDURE: CT CERVICAL SPINE WO CON INDICATIONS: trauma TECHNIQUE: Noncontrast 3 mm thick sections acquired from the skull base to the T4 level. Sagittal and coronal reformats were then constructed. For radiation dose reduction, the following was used: automated exposure control, adjustment of mA and/or kV according to patient size. COMPARISON: [facility], CT, CT CERVICAL SPINE WO CON, 04/18/2024, 12:27. FINDINGS: Image quality: Excellent. Bones: No fractures or dislocations. Visualized superior ribs are intact. Cervical spondylosis. Disc osteophyte complex at C5-C6, eccentric to the right, with a degree of canal stenosis. Soft tissues: Prevertebral soft tissues are normal in thickness. No paravertebral hematomas. No apical pneumothoraces. IMPRESSION: No displaced fracture or traumatic subluxation. Cervical spondylosis. Dictated by: Julio Darby M.D. on 08/12/2024 at 8:32 Approved by: Julio Darby M.D. on 08/12/2024 at 8:35
--- NOTE | 2024-08-12 07:26 | DI.CT.S_ITS ---
PROCEDURE: CT HEAD/BRAIN WO CON INDICATIONS: trauma TECHNIQUE: Noncontrast 4.5 mm thick angled axial sections acquired from the foramen magnum to the vertex, with coronal and sagittal reformats. For radiation dose reduction, the following was used: automated exposure control, adjustment of mA and/or kV according to patient size. C. OMPARISON: [facility], CT, CT FACIAL BONES WO CON, 08/12/2024, 7:44. FINDINGS: Image quality: Diagnostic. CSF spaces: Basal cisterns are patent. No extra-axial fluid collections. The ventricles are symmetric in size and shape. Brain: No intracranial bleeds or masses. There is cerebral volume loss for age, with resultant ventricular and sulcal prominence. There are periventricular and deep white matter chronic small vessel ischemic changes. There is intracranial internal carotid artery atherosclerosis. Skull and face: Calvarium and visualized facial bones appear intact, without suspicious lesions. Sinuses: Patchy bilateral ethmoid opacification. Bilateral maxillary sinus mucosal thickening. IMPRESSION: 1. No acute intracranial pathology. 2. Chronic sinus disease Dictated by: Julio Darby M.D. on 08/12/2024 at 8:30 Approved by: Julio Darby M.D. on 08/12/2024 at 8:32
--- NOTE | 2024-08-12 07:26 | DI.CT.S_ITS ---
PROCEDURE: CT FACIAL BONES WO CON INDICATIONS: trauma TECHNIQUE: Noncontrast 2.5 mm thick axial images acquired from the mandible through the frontal sinuses, with coronal and sagittal reformatting. For radiation dose reduction, the following was used: automated exposure control, adjustment of mA and/or kV according to patient size. COMPARISON: None. FINDINGS: Image quality: Excellent. Bones and teeth: Orbital pantoja are intact. Sinus pantoja show no fracture or deformity. Nasal bones and septum are intact. Visualized portions of the mandible demonstrate no fractures or subluxation. Zygomatic arches are intact. Pterygoid plates are intact. Visualized portions of the skull base and auditory canals are intact. Numerous absent teeth. Sinuses: Mucosal thickening in the maxillary sinuses, sphenoid sinuses and ethmoid air cells. No paranasal sinus air-fluid levels. Nasal septum is deviated to the right. Mastoid air cells are aerated. Soft tissues: No edema, masses, or fluid collections. No enlarged lymph nodes. No soft tissue lacerations or debris. Vascular: Visualized vascular structures appear normal in the absence of contrast. Bony vascular foramina and canals are intact. IMPRESSION: No fracture. Dictated by: Naima Bolaños MD, PhD on 08/12/2024 at 9:25 Approved by: Naima Bolaños MD, PhD on 08/12/2024 at 9:28
--- NOTE | 2024-08-12 07:26 | DI.RAD.S_ITS ---
PROCEDURE: XR CHEST 1V INDICATIONS: trauma TECHNIQUE: One view of the chest was acquired. COMPARISON: [facility], CR, XR CHEST 2V, 09/21/2023, 13:53. FINDINGS: Surgical changes and devices: None. Lungs and pleura: Lungs are clear. No pleural effusions or pneumothorax. Mediastinum: Mediastinal contours appear normal. Heart size is normal. Bones and chest wall: No suspicious bony lesions. Overlying soft tissues appear unremarkable. IMPRESSION: No acute cardiopulmonary abnormality is seen. Dictated by: Julio Darby M.D. on 08/12/2024 at 8:37 Approved by: Julio Darby M.D. on 08/12/2024 at 8:37
[2024-08-12] MEDS: HYDROMORPHONE 1 MG INJ IV (07:34)
[2024-08-12] MEDS: LORazepam 2 MG/ML INJ 1 MG IV (07:34)
[2024-08-12 07:36] LABS: Add Manual Diff / Slide Review NO; Basophils Absolute Auto 300 /uL (0-100); Basophils Percent Auto 2.8 % (0-2); Eosinophils Absolute Auto 200 /uL (0-450); Eosinophils Percent Auto 2.1 % (2-4); Hematocrit 50.4 % (41-53); Hemoglobin 17.6 g/dL (13.5-17.5); Lymphocytes Absolute Auto 3800 /uL (1100-4500); Lymphocytes Percent Auto 42.9 % (25-40); Mean Corpuscular Hemoglobin 32.8 PG (26-34); Mean Corpuscular Volume 93.9 fL (80-100); Monocytes Absolute Auto 900 /uL (0-900); Monocytes Percent Auto 10.4 % (3-14); Neutrophils Absolute Auto 3700 /uL (1500-7000); Neutrophils Percent Auto 41.8 % (50-75); Platelet Count 198 X10^3/uL (150-400); Red Blood Cell Count 5.37 X10^6/uL (4.5-5.9); Red Cell Distribution Width 12.9 % (11.6-14.8); White Blood Cell Count 8.9 X10^3/uL (4.5-11.0)
[2024-08-12 07:43] LABS: Alanine Aminotransferase 76 IU/L (<50); Albumin 4.6 g/dL (3.5-5.0); Albumin Globulin Ratio 1.5 (1.0-2.8); Alkaline Phosphatase 55 U/L (38-126); Aspartate Aminotransferase 79 IU/L (17-59); BUN Creatinine Ratio 22.2 (6-22); Bilirubin Total 0.8 mg/dL (0.2-1.3); Blood Urea Nitrogen 12 mg/dL (9-20); Calcium 9.5 mg/dL (8.4-10.2); Carbon Dioxide 22 mmol/L (22-32); Chloride 105 mmol/L (98-107); Estimated Glomerular Filt Rate > 60 mL/min (>60); Ethanol (ETOH) 236 mg/dL; Glucose 112 mg/dL (70-100); HEMOLYSIS < 15 (0-50); Lipase 180 U/L (23-300); Magnesium 1.7 mg/dL (1.6-2.3); Potassium 3.6 mmol/L (3.4-5.1); Sodium 140 mmol/L (137-145); Total Protein 7.6 g/dL (6.3-8.2)
[2024-08-12 07:53] LABS: NT-proBNP (BNP-Adult 18+) < 20 pg/mL (<125)
[2024-08-12 07:54] LABS: Troponin I < 0.012 ng/mL (0.01-0.034)
[2024-08-12] MEDS: HYDROMORPHONE 0.5 MG INJ IV ×2 (08:13→11:53)
--- NOTE | 2024-08-12 08:55 | ED.FALL ---
HPI - Fall General Chief Complaint: Trauma Stated Complaint: GLF Time Seen by Provider: 08/12/24 07:07 Source: patient and EMS Mode of arrival: EMS History of Present Illness HPI Narrative: 54-year-old gentleman with a history of proximal atrial fibrillation on apixaban, anticoagulated, hypertension, severe cervical stenosis with left radicular arm pain and weakness (states no surgical intervention able to be offered secondary to cardiac disease), COPD, alcohol use disorder presents after a fall last night. He states he fell approximately 4:00 p.m. yesterday, stumbled over a coffee table landing forward on his face while holding a plate of tacos. The plate of tacos remained intact and his face apparently took the brunt of the fall. He reports that he did not lose consciousness, was able to get up get back to the couch, finishes dinner go to bed woke up this morning with severe face pain head pain neck pain and worsened left arm weakness and numbness. He was in enough pain that he called 911. He notes that he did 2 shots of whiskey this before arriving to help with the pain, it did not pain. His presentation is scattered at times confrontational, at times emotional, redirection is needed at multiple points in initial discussion Related Data Home Medications Medication Instructions Recorded Confirmed aspirin 325 mg tablet 325 mg PO DAILY 11/01/23 11/01/23 diltiazem HCl 180 mg 180 mg PO DAILY 11/01/23 11/01/23 capsule,extended release 24 hr tiotropium 2.5 mcg-olodaterol 2.5 2 puff inhalation DAILY 11/01/23 11/01/23 mcg/actuation mist for inhalation Previous Rx's Medication Instructions Recorded albuterol sulfate 90 mcg/actuation 2 puff inhalation Q4-6H PRN 04/30/22 aerosol inhaler shortness of breath or wheezing #8.5 grams prednisone 20 mg tablet 20 mg PO DAILY #10 tabs 11/01/23 rivaroxaban 20 mg tablet (Xarelto) 20 mg PO DAILY #30 tabs 05/31/24 oxycodone-acetaminophen 5 mg-325 1 tab PO Q6H PRN pain #14 tabs 08/12/24 mg tablet Allergies Allergy/AdvReac Type Severity Reaction Status Date / Time No Known Drug Allergies Allergy Verified 11/01/23 15:09 Review of Systems Review of Systems Narrative: Pertinent positive and negative findings as per HPI Patient History Medical History Ureterolithiasis Paroxysmal atrial fibrillation Breathing-related sleep disorder Erythrocytosis Smoking Surgical History History of cholecystectomy Family History Family/Other Loud snoring Obesity Hypertension Heart disease Depression Anxiety Father Alcohol abuse Mother Loud snoring Sleep apnea Obesity Hypertension Diabetes mellitus Depression Anxiety Alcohol abuse Family/Other Depression Anxiety Social History Smoking Status: Current every day smoker alcohol intake: current substance use type: marijuana Smoking Status: Current every day smoker tobacco type: cigarettes alcohol intake frequency: 3 or more drinks per day Alcohol type: beer and hard liquor Substance Use Type: does not use Exam Initial Vital Signs Initial Vital Signs: Vital Signs Temperature 98.3 F 08/12/24 07:17 Pulse Rate 95 H 08/12/24 07:17 Respiratory Rate 18 08/12/24 07:17 Blood Pressure 157/107 H 08/12/24 07:17 Pulse Oximetry 96 08/12/24 07:17 Oxygen Delivery Method Room Air 08/12/24 07:17 General: Disheveled, chronically ill-appearing, C-collar in place HEENT: Moist mucous membranes, normal sclera with reactive pupils, minor abrasion over the mid face and nose with nose still midline Neck: Tender along the entire cervical spine Respiratory: Lungs are clear to auscultation, no wheezing no rales no rhonchi. Full and symmetrical air movement Cardiac: Regular rate and rhythm no murmurs no bruits Chest: He does have some tenderness into the left clavicle and shoulder area that is not reproducible with palpation Abdomen: Soft, nontender, good bowel tones, no flank pain Skin: Warm and dry, no rashes Neurologic: He is able to move all extremities. Continues to complain that his left arm is more weak than his baseline with increasing pain radiating into the upper shoulder, down to his elbow and anterior shoulder across his clavicle. No weakness or paresthesias in the lower extremities. Right arm is unaffected Extremities: No bony injury to upper or lower extremities, no obvious abrasions Psych: Intoxicated, dramatic effective behavior, tangential Course Orders Ordered: ED Orders 08/12/24 07:20 Urinalysis and Microscopic Stat 08/12/24 07:22 Complete Blood Count AUTO DIFF Stat Comprehensive Metabolic Panel Stat Ethanol (ETOH) Stat Lactate (Lactic Acid) Stat Lipase Stat Magnesium Stat NT-proBNP (BNP-Adult 18+) Stat Troponin I Stat 08/12/24 07:25 EKG-12 Lead Stat 08/12/24 07:26 CT cervical spine wo con Stat CT facial bones wo con Stat CT head/brain wo con Stat XR chest 1V Stat 08/12/24 07:42 Type and Screen Stat 08/12/24 09:32 MR cervical spine wo con Stat Hydromorphone HCl (Hydromorphone 0.5 Mg Inj) 0.5 mg IV Q15MIN PRN PRN Reason: Pain, Last Admin: 08/12/24 11:53 Dose: 0.5 mg Documented By: Admin: 08/12/24 08:13 Dose: 0.5 mg Documented By: BRADLY Discontinued Medications Hydromorphone HCl (Hydromorphone 1 Mg Inj) 1 mg IV NOW ONE Stop: 08/12/24 07:20 Last Admin: 08/12/24 07:34 Dose: 1 mg Documented By: BRADLY Lorazepam (Lorazepam 2 Mg/Ml Inj) 1 mg IV NOW ONE Stop: 08/12/24 07:25 Last Admin: 08/12/24 07:34 Dose: 1 mg Documented By: BRADLY Vital Signs Vital signs: Vital Signs - 8 hr 08/12/24 07:17 08/12/24 07:24 08/12/24 07:30 Temperature 98.3 F Pulse Rate 95 H 86 Respiratory Rate 18 18 Blood Pressure 157/107 H 142/87 H Pulse Oximetry 96 95 Oxygen Delivery Method Room Air 08/12/24 07:30 08/12/24 07:58 08/12/24 07:58 Temperature Pulse Rate 80 87 Respiratory Rate 20 Blood Pressure 167/89 H Pulse Oximetry 94 92 Oxygen Delivery Method 08/12/24 08:00 08/12/24 08:00 08/12/24 08:08 Temperature Pulse Rate 85 Respiratory Rate Blood Pressure 150/80 H 136/91 H Pulse Oximetry 92 Oxygen Delivery Method 08/12/24 08:08 08/12/24 08:30 08/12/24 08:30 Temperature Pulse Rate 81 82 Respiratory Rate 18 21 Blood Pressure 143/85 H Pulse Oximetry 90 L Oxygen Delivery Method 08/12/24 09:00 08/12/24 09:00 08/12/24 09:30 Temperature Pulse Rate 85 88 Respiratory Rate 24 17 Blood Pressure 139/91 H Pulse Oximetry 92 Oxygen Delivery Method 08/12/24 09:30 08/12/24 10:00 08/12/24 11:27 Temperature Pulse Rate 91 H 79 Respiratory Rate 39 H Blood Pressure 133/87 Pulse Oximetry 93 Oxygen Delivery Method 08/12/24 11:30 08/12/24 12:00 Temperature Pulse Rate 82 83 Respiratory Rate 13 18 Blood Pressure Pulse Oximetry 95 91 Oxygen Delivery Method MDM - Fall Lab Data 08/12/24 07:22 08/12/24 07:22 Labs: Lab Results 08/12/24 08/12/24 Range/Units 07:22 07:42 WBC 8.9 (4.5-11.0) X10^3/uL RBC 5.37 (4.5-5.9) X10^6/uL Hgb 17.6 H (13.5-17.5) g/dL Hct 50.4 (41-53) % MCV 93.9 (80-100) fL MCH 32.8 (26-34) PG MCHC 35.0 (30-36) % RDW 12.9 (11.6-14.8) % Plt Count 198 (150-400) X10^3/uL Neut % (Auto) 41.8 L (50-75) % Lymph % (Auto) 42.9 H (25-40) % [place] % (Auto) 10.4 (3-14) % Eos % (Auto) 2.1 (2-4) % Baso % (Auto) 2.8 H (0-2) % Neut # (Auto) 3700 (0040-6061) /uL Lymph # (Auto) 3800 (3141-0461) /uL [place] # (Auto) 900 (0-900) /uL Eos # (Auto) 200 (0-450) /uL Baso # (Auto) 300 H (0-100) /uL Sodium 140 (137-145) mmol/L Potassium 3.6 (3.4-5.1) mmol/L Chloride 105 (98-107) mmol/L Carbon Dioxide 22 (22-32) mmol/L BUN 12 (9-20) mg/dL Creatinine 0.54 L (0.66-1.25) mg/dL Estimated GFR > 60 (>60) mL/min BUN/Creatinine Ratio 22.2 H (6-22) Glucose 112 H (70-100) mg/dL Lactate 2.0 (0.7-2.1) mmol/L Calcium 9.5 (8.4-10.2) mg/dL Magnesium 1.7 (1.6-2.3) mg/dL Total Bilirubin 0.8 (0.2-1.3) mg/dL AST 79 H (17-59) IU/L ALT 76 H (<50) IU/L Alkaline Phosphatase 55 (38-126) U/L Troponin I < 0.012 (0.01-0.034) ng/mL NT-Pro-B Natriuret Pep < 20 (<125) pg/mL Total Protein 7.6 (6.3-8.2) g/dL Albumin 4.6 (3.5-5.0) g/dL Globulin 3.0 (1.7-4.1) g/dL Albumin/Globulin Ratio 1.5 (1.0-2.8) Lipase 180 (23-300) U/L Ethyl Alcohol 236 H ( - 10) mg/dL Blood Type A Negative Antibody Screen Negative Imaging Data C spine: Radiologist's Impression: PROCEDURE: CT CERVICAL SPINE WO CON INDICATIONS: trauma TECHNIQUE: Noncontrast 3 mm thick sections acquired from the skull base to the T4 level. Sagittal and coronal reformats were then constructed. For radiation dose reduction, the following was used: automated exposure control, adjustment of mA and/or kV according to patient size. COMPARISON: [facility], CT, CT CERVICAL SPINE WO CON, 04/18/2024, 12:27. FINDINGS: Image quality: Excellent. Bones: No fractures or dislocations. Visualized superior ribs are intact. Cervical spondylosis. Disc osteophyte complex at C5-C6, eccentric to the right, with a degree of canal stenosis. Soft tissues: Prevertebral soft tissues are normal in thickness. No paravertebral hematomas. No apical pneumothoraces. IMPRESSION: No displaced fracture or traumatic subluxation. Cervical spondylosis. Dictated by: Julio Darby M.D. on 08/12/2024 at 8:32 MDM Narrative Medical decision making narrative: CC: Fall forward landing on face 4:00 p.m. last night Complicating co-morbidities: Chronic neck pain, chronic left arm weakness and radicular findings, alcohol use disorder, anticoagulated for chronic atrial fibrillation Data collected from: patient, medics Medical records reviewed: Medical records from [facility] are reviewed, he has been referred to [facility] neurosurgery regarding his neck. There was a long history of alcohol use complications Differential considered: Fracture cervical spine, exacerbation of spinal stenosis, facial fractures, intracranial bleeding, Exam documented above, pertinent findings include: Patient is confrontational but will calm and can be redirected. Complains of shoulder pain but shoulder on the left is normal to palpation without pain on passive range of motion. No obvious abrasions or contusions. Facial abrasion over the nose appreciated. Remainder of exam is benign Lab Test results independently reviewed as above. Pertinent findings: CBC is unremarkable Chemistries are reassuring. He does have a transaminitis with increased ALT and AST not significantly off from his baseline. Bilirubin is not eleveate Troponin is undetected BNP is unremarkable Lipase is within normal limits Alcohol level is at 236 Imaging studies independently reviewed: CT of the cervical spine does not show acute fractures. MRI of cervical spine done in October of this year reviewed. Degree stenosis and abnormality is not as significant as the patient has described but abnormalities were appreciated. CT scan of the head is unremarkable Chest x-ray is unremarkable MR of the cervical spine does not show any new or acute findings copy is given to the patient for review Treatments: Dilaudid, Ativan, patient still remains somewhat agitated and dramatically complaining of pain into the left arm and shoulder Re-evaluations: Pain is somewhat better controlled. Continues to complain of severe neck pain worsening weakness, worsened radiculopathy and worsened pain in the upper portion of the chest and left anterior shoulder. Given prior cervical abnormalities and chronic issues it is difficult to tell if there are acute changes. I am going to order an MRI Patient was re-evaluated prior to discharge. With the continued complaints in the left upper chest this is re-examined. Pain is entirely musculoskeletal and reproducible with palpation in the upper anterior chest wall and into the axilla and mid axillary line. Discussion: Patient has now been here almost 5 hours and is becoming more agitated throughout his stay. I suspect that his alcohol level is decreasing. His sister is here and has multiple questions. We reviewed in detail the entire both medical workup and radiologic workup that has been done with the absence of any significant findings including heart attack, collapsed lung, broken bones, exacerbation of his chronic neck issues or intracranial bleeding. Both the patient and his sister continued to perseverate on all of the possibilities that have been addressed with the workup. We spent 15 minutes reviewing in detail in multiple different ways the negative workup. Reassured him that I understand that he is hurting he likely is going to hurt more, he did fall and there is nothing that is fixable at this time. We discussed pain medication options. We will give him a dose of dexamethasone as well as Toradol prior to pulling his IV out to help with the acute inflammation and decreased inflammation over the next 24 hours with the dexamethasone. He is given 2 Percocet because he states the IV Dilaudid does not even work as well as water and perhaps makes his pain even worse. We discussed home medications. He would prefer Percocet and we had a very luan discussion regarding his alcohol use. He is well aware that combining alcohol and narcotics will kill him. At this time he is still hurting, there was no indication for additional imaging or hospitalization. Questions have been answered and he is safe for discharge Discharge Plan Departure Patient Disposition: Home Clinical Impression: Acute neck pain, Radicular pain in left arm, Chest pain, musculoskeletal Fall Qualifiers: Encounter type: initial encounter Qualified Code(s): W19.XXXA - Unspecified fall, initial encounter Acute shoulder pain Qualifiers: Laterality: right Qualified Code(s): M25.511 - Pain in right shoulder Activity Restrictions/Additional Instructions: I am sorry that you are suffering so much with this pain Your workup today included lab work and EKG to confirm that you are not having a heart attack Your kidney function and liver function are doing well, your liver enzymes remains slightly elevated from your alcohol use The CT scan of your head did not show bleeding or fractures The CT scan of your neck did not show fractures Because your chronic left neck arm and shoulder pain was so much worse, we did do a MRI of your cervical spine and it did not show any new findings as a result of your fall Your chest x-ray did not show a collapsed lung and no broken bones You were given IV Ativan, multiple doses of Dilaudid, eventually a single dose of dexamethasone to help with inflammation, a single dose of Toradol to help with inflammation and you are discharged home with Percocet. Please be aware that mixing Percocet which is a narcotic with alcohol can cause you to stop breathing. Do not mix these medications Prescription for Percocet was electronically transmitted to [facility] I would recommend that you continue following up with your neurosurgical recommendations including consideration of epidural injections to help your cervical neck pain If you find that you are getting worse or develop any new symptoms, please feel free to return to the emergency department for further evaluation. Prescriptions: New oxycodone-acetaminophen 5-325 mg tablet 1 tab PO Q6H PRN (Reason: pain) Qty: 14 0RF No Action Xarelto 20 mg tablet 20 mg PO DAILY Qty: 30 0RF Rx Instructions: must administer with evening meal albuterol sulfate 90 mcg/actuation HFA aerosol inhaler 2 puff INHALATION Q4-6H PRN (Reason: shortness of breath or wheezing) Qty: 8.5 0RF diltiazem HCl 180 mg capsule,extended release 24hr 180 mg PO DAILY tiotropium-olodaterol 2.5-2.5 mcg/actuation mist 2 puff inhalation DAILY aspirin 325 mg tablet 325 mg PO DAILY prednisone 20 mg tablet 20 mg PO DAILY Qty: 10 0RF Rx Instructions: Take 2 tabs every day for 5 days Referrals: Salome Duenas ARNP [Primary Care Provider] - Stand Alone Forms: Patient Portal/API/Survey
--- NOTE | 2024-08-12 09:32 | DI.MRI.S_ITS ---
PROCEDURE: MR CERVICAL SPINE WO CON INDICATIONS: trauma, worse Left symptoms. Compare 10/24 TECHNIQUE: Noncontrast sagittal T1 spin echo and T2 fast spin echo, sagittal STIR, foraminal oblique sagittal T2 fast spin echo, and axial gradient echo or T2 fast spin echo through the cervical spine. COMPARISON: [facility], MR, MR CERVICAL SPINE WO/W CON, 10/16/2023, 9:43. [facility], CT, CT CERVICAL SPINE WO CON, 08/12/2024, 7:44. [facility], CT, CT CERVICAL SPINE WO CON, 04/18/2024, 12:27. FINDINGS: Image quality: Excellent. Alignment and Curvature: There is normal bony alignment. Bone Marrow: Marrow demonstrates normal overall signal. Spinal Cord: Visualized spinal cord has normal size and signal. No cerebellar tonsillar herniation. Paraspinous Soft Tissues: No paravertebral masses. Prevertebral soft tissues are normal in thickness. C2-C3: No central stenosis. No neural foraminal narrowing. No neural compression. C3-C4: Loss of disc signal. Mild, diffuse disc bulge. No central stenosis. No neural foraminal narrowing. No neural compression. C4-C5: Loss of disc signal. Mild, diffuse disc bulge. No central stenosis. No neural foraminal narrowing. No neural compression. C5-C6: Loss of disc signal. Moderate, diffuse disc bulge. Mild bilateral uncovertebral hypertrophy. Central/right central disc protrusion. Moderate narrowing of the central canal. Moderate to severe bilateral neural foraminal narrowing with slight compression of the exiting C6 nerve roots. C6-C7: Loss of disc signal. Mild bilateral uncovertebral hypertrophy. No central stenosis moderate right neural foraminal narrowing. No neural compression.. C7-T1: Normal appearance. IMPRESSION: No acute traumatic injury. Multilevel degenerative disc disease. Moderate C5-C6 central canal stenosis. Moderate to severe bilateral C5-C6 neural foraminal narrowing with slight compression of the exiting bilateral C6 nerve roots. Dictated by: Naima Bolaños MD, PhD on 08/12/2024 at 10:46 Approved by: Naima Bolaños MD, PhD on 08/12/2024 at 11:00
--- NOTE | 2024-08-12 11:32 | EKG_ITS ---
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
[2024-08-12] MEDS: OXYCODONE/ACETAMINOPHEN 5/325 TABLET 2 TAB PO (12:56)
[2024-08-12] MEDS: KETOROLAC 30 MG/ML VIAL 15 MG IV (12:56)
[2024-08-12] MEDS: DEXAMETHASONE 10 MG/ML VIAL IV (12:56)
--- NOTE | 2024-08-12 13:08 | PC.NURSE ---
Upon Discharge pt's family Sister asked RN What happens when he has a problem with his heart at home and he dies? Who do we marlene? RN explained to family that pt has been medically cleared and safe to go home per Dr. Morin, and if anything changes pt should return to ED. Family member states Everyones attitude here has been been piss poor Pt then aggressively got up from chair and states you'll understand more when people in your family begin to Sister then states I'm getting out out of here RN then says to sister I think that is a smart decision Sister then told MADHURI Meehan off Pt then exited the emergency room.
--- NOTE | 2024-08-12 13:09 | PC.NURSE ---
1200 pt sister arrived to dept and argumentative with staff and believes that ED staff is not appropriately caring for her brother. Discussed with patient and sister all tests & nursing interventions that were performed upon pt's arrival to ED and throughout the duration of his time in ED. Also informed pt and sister of wait times for test results. Sister is concerned that pt's chest pain is not being addressed. RN and Dr Morin explained that pt has received multiple doses of pain medication, a dose of lorazepam, and trauma protocol followed upon pt's arrival to ED. RN and doctor discussed all test results at length and dr morin notified of pt's cp prior to d/c. Pt received dose of toradol and offered sling upon d/c. Pt comfortable with d/c plan and signed paperwork. Sister remains unsatisfied and insulted and yelled profanities at staff prior to exiting dept.
== END 2024-08-12 13:31 | disposition home or self-care (01) ==
PROVIDERS: Emergency Provider Emergency Medicine; PCP Nurse Practitioner Family
DX: M25.511 Pain in right shoulder (principal); S00.81XA Abrasion of other part of head, initial encounter; M54.2 Cervicalgia; R07.9 Chest pain, unspecified; R53.1 Weakness; I45.10 Unspecified right bundle-branch block; I10 Essential (primary) hypertension; M47.812 Spondylosis without myelopathy or radiculopathy, cervical region; W18.30XA Fall on same level, unspecified, initial encounter; Z79.01 Long term (current) use of anticoagulants; F10.129 Alcohol abuse with intoxication, unspecified; Y90.7 Blood alcohol level of 200-239 mg/100 ml
CPT/HCPCS: 36415; 70450; 70486; 71045; 72125; 72141; 80053; 80320; 83605; 83690; 83735; 83880; 84484; 85025; 86850; 86900; 86901; 93005; 93010; 96374; 96375; 96376; 99284; 99285; J1100; J1171; J1885; J2060

== ENCOUNTER 2024-08-20 23:36 | Emergency (ER) | payer MEDICARE, MEDICAID, SELFPAY ==
[2024-08-20 23:42] VITALS: BP 130/70; PULSE 93; RESP 18; TEMP 36.8; O2SAT 96; BMI 28.2
[2024-08-21] VITALS (14 sets, daily range): BP systolic 123–142; BP diastolic 75–95; PULSE 69–84; RESP 11–20; O2SAT 94–96
--- NOTE | 2024-08-21 | EKG_ITS ---
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
--- NOTE | 2024-08-21 | DI.RAD.S_ITS ---
PROCEDURE: XR CHEST 1V INDICATIONS: chest pain TECHNIQUE: One view of the chest was acquired. COMPARISON: [facility], CR, XR CHEST 1V, 08/12/2024, 7:47. FINDINGS: Surgical changes and devices: None. Lungs and pleura: Lungs are clear. No pleural effusions or pneumothorax. Mediastinum: Mediastinal contours appear normal. Heart size is normal. Bones and chest wall: No suspicious bony lesions. Overlying soft tissues appear unremarkable. IMPRESSION: No acute cardiopulmonary abnormality is seen. Dictated by: Annelise Samuel M.D. on 08/21/2024 at 0:36 Approved by: Annelise Samuel M.D. on 08/21/2024 at 0:37
--- NOTE | 2024-08-21 00:16 | ED.CHESTPAIN ---
HPI - Chest Pain General Chief Complaint: Chest Pain Stated Complaint: Chest pain Time Seen by Provider: 08/21/24 00:00 Source: patient and EMS Mode of arrival: EMS Limitations: no limitations History of Present Illness HPI narrative: Patient 54-year-old male history of paroxysmal atrial fibrillation anticoagulation on apixaban, hypertension, severe cervical stenosis with left radicular arm pain and weakness, COPD, alcohol use disorder presenting today with chest pain. He reports significant pain and heaviness. He sometimes feels short of breath. He feels like pain comes from his back all the way to his sternum it hurts when he bends over hurts when he coughs hurts when he breathes. He was seen here last week he was given pain pills he says he only took 1 or 2 and then did not take any for a long time and suddenly the pain started again tonight. Patient was seen evaluated here 08/12/2024 patient had complete workup during his stay including MRI of his cervical spine along with a blood work head CT. He was given Dilaudid Percocet. During that stay he complained of left upper chest pain which was entirely musculoskeletal and reproducible with palpitation and he had pain into the mid axillary line as well. Related Data Home Medications Medication Instructions Recorded Confirmed aspirin 325 mg tablet 325 mg PO DAILY 11/01/23 11/01/23 diltiazem HCl 180 mg 180 mg PO DAILY 11/01/23 11/01/23 capsule,extended release 24 hr tiotropium 2.5 mcg-olodaterol 2.5 2 puff inhalation DAILY 11/01/23 11/01/23 mcg/actuation mist for inhalation Previous Rx's Medication Instructions Recorded albuterol sulfate 90 mcg/actuation 2 puff inhalation Q4-6H PRN 04/30/22 aerosol inhaler shortness of breath or wheezing #8.5 grams prednisone 20 mg tablet 20 mg PO DAILY #10 tabs 11/01/23 rivaroxaban 20 mg tablet (Xarelto) 20 mg PO DAILY #30 tabs 05/31/24 oxycodone-acetaminophen 5 mg-325 1 tab PO Q6H PRN pain #14 tabs 08/12/24 mg tablet hydrocodone 5 mg-acetaminophen 325 1 tab PO Q6H PRN pain #10 tabs 08/21/24 mg tablet hydrocodone 5 mg-acetaminophen 325 1 tab PO Q6H PRN pain #8 tabs 08/21/24 mg tablet Allergies Allergy/AdvReac Type Severity Reaction Status Date / Time No Known Drug Allergies Allergy Verified 11/01/23 15:09 Patient History Medical History Ureterolithiasis Paroxysmal atrial fibrillation Breathing-related sleep disorder Erythrocytosis Smoking Surgical History History of cholecystectomy Family History Family/Other Loud snoring Obesity Hypertension Heart disease Depression Anxiety Father Alcohol abuse Mother Loud snoring Sleep apnea Obesity Hypertension Diabetes mellitus Depression Anxiety Alcohol abuse Family/Other Depression Anxiety Social History Smoking Status: Current every day smoker alcohol intake: current substance use type: marijuana Smoking Status: Current every day smoker tobacco type: cigarettes alcohol intake frequency: 3 or more drinks per day Alcohol type: beer and hard liquor Substance Use Type: does not use Exam Initial Vital Signs Initial Vital Signs: Vital Signs Temperature 98.3 F 08/20/24 23:42 Pulse Rate 93 H 08/20/24 23:42 Respiratory Rate 18 08/20/24 23:42 Blood Pressure 130/70 08/20/24 23:42 Pulse Oximetry 96 08/20/24 23:42 Oxygen Delivery Method Room Air 08/20/24 23:42 GENERAL: Alert 54-year-old male appears uncomfortable HEENT: Head atraumatic,EOMI, pupils reactive, face symmetric, moist mucous membranes CARDIOVASCULAR: Regular rate and rhythm without murmurs, rubs or gallops. Sternal pain tender to touch left-sided rib pain pain reproduced swollen no rash RESPIRATORY: Breath sounds equal bilaterally, no wheezes rales or rhonchi. ABDOMEN: Soft, nontender. Normoactive bowel sounds all 4 quadrants. No guarding or rebound. EXTREMITIES: Normal range of motion, no clubbing or edema. Neurovascularly intact NEUROLOGICAL: Alert and oriented x4.Normal gait and speech. Cranial nerves II through XII grossly intact. SKIN: Warm, dry, no laceration, no petechiae, no rashes or lesions. Course Orders Ordered: ED Orders 08/21/24 00:00 XR chest 1V Stat Complete Blood Count AUTO DIFF Stat Comprehensive Metabolic Panel Stat Lipase Stat Troponin & CK Cardiac Panel Stat EKG-12 Lead Stat 08/21/24 01:39 BNP [NT-proBNP (BNP-Adult 18+)] Stat D Dimer Stat Troponin & CK Cardiac Panel Stat 08/21/24 02:54 CT chest w con Stat Discontinued Medications Hydrocodone Bitart/Acetaminophen (Hydrocodone/Acet 5/325 Tablet) 1 tab PO NOW ONE Stop: 08/21/24 02:54 Last Admin: 08/21/24 03:04 Dose: 1 tab Documented By: AB Vital Signs Vital signs: Vital Signs - 8 hr 08/20/24 23:42 08/21/24 00:14 08/21/24 00:30 Temperature 98.3 F Pulse Rate 93 H 84 Respiratory Rate 18 19 Blood Pressure 130/70 124/75 Pulse Oximetry 96 96 Oxygen Delivery Method Room Air 08/21/24 00:30 08/21/24 01:00 08/21/24 01:00 Temperature Pulse Rate 77 80 Respiratory Rate 16 12 Blood Pressure 123/77 Pulse Oximetry 95 94 Oxygen Delivery Method Room Air 08/21/24 01:30 08/21/24 01:30 08/21/24 01:59 Temperature Pulse Rate 77 74 Respiratory Rate 17 11 L Blood Pressure 130/79 Pulse Oximetry 95 95 Oxygen Delivery Method Room Air Room Air 08/21/24 02:00 08/21/24 02:00 08/21/24 02:30 Temperature Pulse Rate 73 Respiratory Rate 12 Blood Pressure 135/79 142/80 H Pulse Oximetry 95 Oxygen Delivery Method 08/21/24 02:30 08/21/24 03:00 08/21/24 03:00 Temperature Pulse Rate 81 79 Respiratory Rate 20 Blood Pressure 133/95 H Pulse Oximetry 95 96 Oxygen Delivery Method 08/21/24 03:30 08/21/24 04:00 08/21/24 04:30 Temperature Pulse Rate 76 75 72 Respiratory Rate 18 Blood Pressure Pulse Oximetry 95 94 94 Oxygen Delivery Method Room Air 08/21/24 05:00 08/21/24 05:30 08/21/24 06:00 Temperature Pulse Rate 77 70 69 Respiratory Rate Blood Pressure Pulse Oximetry 95 95 94 Oxygen Delivery Method MDM - Chest Pain Lab Data 08/20/24 23:30 08/20/24 23:30 Labs: Lab Results 08/20/24 08/21/24 Range/Units 23:30 01:39 WBC 8.4 (4.5-11.0) X10^3/uL RBC 5.46 (4.5-5.9) X10^6/uL Hgb 18.1 H (13.5-17.5) g/dL Hct 51.9 (41-53) % MCV 95.1 (80-100) fL MCH 33.1 (26-34) PG MCHC 34.8 (30-36) % RDW 13.0 (11.6-14.8) % Plt Count 232 (150-400) X10^3/uL Neut % (Auto) 53.1 (50-75) % Lymph % (Auto) 34.1 (25-40) % [place] % (Auto) 10.3 (3-14) % Eos % (Auto) 1.4 L (2-4) % Baso % (Auto) 1.1 (0-2) % Neut # (Auto) 4500 (5144-1225) /uL Lymph # (Auto) 2900 (0828-6423) /uL [place] # (Auto) 900 (0-900) /uL Eos # (Auto) 100 (0-450) /uL Baso # (Auto) 100 (0-100) /uL D-Dimer 332 (<500) ng/ml Sodium 138 (137-145) mmol/L Potassium 3.3 L (3.4-5.1) mmol/L Chloride 101 (98-107) mmol/L Carbon Dioxide 28 (22-32) mmol/L BUN 12 (9-20) mg/dL Creatinine 0.62 L (0.66-1.25) mg/dL Estimated GFR > 60 (>60) mL/min BUN/Creatinine Ratio 19.4 (6-22) Glucose 140 H (70-100) mg/dL Calcium 9.1 (8.4-10.2) mg/dL Total Bilirubin 0.9 (0.2-1.3) mg/dL AST 78 H (17-59) IU/L ALT 75 H (<50) IU/L Alkaline Phosphatase 57 (38-126) U/L Total Creatine Kinase 50 L 40 L (55-170) U/L Troponin I < 0.012 < 0.012 (0.01-0.034) ng/mL NT-Pro-B Natriuret Pep 22 (<125) pg/mL Total Protein 8.2 (6.3-8.2) g/dL Albumin 4.7 (3.5-5.0) g/dL Globulin 3.5 (1.7-4.1) g/dL Albumin/Globulin Ratio 1.3 (1.0-2.8) Lipase 248 (23-300) U/L Imaging Data Chest x-ray: Radiologist's Impression: PROCEDURE: XR CHEST 1V INDICATIONS: chest pain TECHNIQUE: One view of the chest was acquired. COMPARISON: [facility], , XR CHEST 1V, 08/12/2024, 7:47. FINDINGS: Surgical changes and devices: None. Lungs and pleura: Lungs are clear. No pleural effusions or pneumothorax. Mediastinum: Mediastinal contours appear normal. Heart size is normal. Bones and chest wall: No suspicious bony lesions. Overlying soft tissues appear unremarkable. IMPRESSION: No acute cardiopulmonary abnormality is seen. Dictated by: Annelise Samuel M.D. on 08/21/2024 at 0:36 CT scan - chest: Radiologist's Impression: Preliminary report left posterior 11th rib fracture ECG Data Attestation: I personally reviewed and interpreted this ECG as follows: Prior ECG tracings: available for review Interpretation: Normal sinus rhythm rate 82 PA interval 156 QRS [address] changes no T-wave inversions similar to prior MDM Narrative Medical decision making narrative: MDM CC: Chest pain Complicating co-morbidities: Alcohol use disorder paroxysmal atrial fibrillation Medical records reviewed: ED record from August 12 reviewed he was complaining of some musculoskeletal chest pain he had cervical neck pain he had an MRI and complete workup Differential considered: Arrhythmia acute coronary syndrome pneumonia pneumothorax Exam documented above, pertinent findings include: Patient is having significant pain over sternum that is reproducible. It does go across his left ribs as well which is also reproducible there is no rash Lab Test results independently reviewed as above. Pertinent findings: Troponin negative x2 BNP 22 D-dimer 332 WBC 8.4 hemoglobin 8.1 hematocrit 51 Sodium 138 potassium 3.3 chloride 101 carbon dioxide 28 BUN 12 creatinine 0.6 Bilirubin 0.9 AST 70 ALT 75 Independently reviewed EKG as above no ischemia Imaging studies independently reviewed: X-ray negative CT chest does show left posterior rib fracture Treatments: Greenwood Re-evaluations: Patient did receive some relief with the [place] Discussion: 54-year-old male presenting today with chest pain. It is very reproducible to palpation. He does have a history of AFib he is on Eliquis he is currently in sinus rhythm. He did have 1 run of nonsustained V-tach which was about 6 be. He has been on the monitor he has not had any sort of recurrent episode. Due to on going pain CT was ordered which did find left posterior rib fracture. I suspect this might be causing some of his pain. His blood work has been reviewed overall reassuring. Symptoms are not consistent with acute coronary syndrome and he is 2- troponins. Discharge Plan Departure Patient Disposition: Home Clinical Impression: Left rib fracture Instructions: DI for Rib Fracture Activity Restrictions/Additional Instructions: *You have been diagnosed with left 11th rib fracture *What to do: You have broken rib at this time I think it is causing your pain. This will take time to heal. *Continue to take medications as directed [place] 1 tablet every 6 hours if needed for severe pain--you will not be getting a refill of pain medications from the emergency department *Follow up with your primary care provider in 2-3 days or call [phone] *Return to ER if you should have any new, worsening or concerning symptoms Prescriptions: New hydrocodone-acetaminophen 5-325 mg tablet 1 tab PO Q6H PRN (Reason: pain) Qty: 8 0RF hydrocodone-acetaminophen 5-325 mg tablet 1 tab PO Q6H PRN (Reason: pain) Qty: 10 0RF No Action Xarelto 20 mg tablet 20 mg PO DAILY Qty: 30 0RF Rx Instructions: must administer with evening meal albuterol sulfate 90 mcg/actuation HFA aerosol inhaler 2 puff INHALATION Q4-6H PRN (Reason: shortness of breath or wheezing) Qty: 8.5 0RF oxycodone-acetaminophen 5-325 mg tablet 1 tab PO Q6H PRN (Reason: pain) Qty: 14 0RF diltiazem HCl 180 mg capsule,extended release 24hr 180 mg PO DAILY tiotropium-olodaterol 2.5-2.5 mcg/actuation mist 2 puff inhalation DAILY aspirin 325 mg tablet 325 mg PO DAILY prednisone 20 mg tablet 20 mg PO DAILY Qty: 10 0RF Rx Instructions: Take 2 tabs every day for 5 days Referrals: Salome Duenas ARNP [Primary Care Provider] - Stand Alone Forms: Patient Portal/API/Survey
[2024-08-21 00:23] LABS: Add Manual Diff / Slide Review NO; Basophils Absolute Auto 100 /uL (0-100); Basophils Percent Auto 1.1 % (0-2); Eosinophils Absolute Auto 100 /uL (0-450); Eosinophils Percent Auto 1.4 % (2-4); Hematocrit 51.9 % (41-53); Hemoglobin 18.1 g/dL (13.5-17.5); Lymphocytes Absolute Auto 2900 /uL (1100-4500); Lymphocytes Percent Auto 34.1 % (25-40); Mean Corpuscular HGB Conc 34.8 % (30-36); Mean Corpuscular Hemoglobin 33.1 PG (26-34); Mean Corpuscular Volume 95.1 fL (80-100); Monocytes Absolute Auto 900 /uL (0-900); Monocytes Percent Auto 10.3 % (3-14); Neutrophils Absolute Auto 4500 /uL (1500-7000); Neutrophils Percent Auto 53.1 % (50-75); Platelet Count 232 X10^3/uL (150-400); Red Blood Cell Count 5.46 X10^6/uL (4.5-5.9); White Blood Cell Count 8.4 X10^3/uL (4.5-11.0)
[2024-08-21 00:25] LABS: Alanine Aminotransferase 75 IU/L (<50); Albumin 4.7 g/dL (3.5-5.0); Albumin Globulin Ratio 1.3 (1.0-2.8); Alkaline Phosphatase 57 U/L (38-126); Aspartate Aminotransferase 78 IU/L (17-59); BUN Creatinine Ratio 19.4 (6-22); Bilirubin Total 0.9 mg/dL (0.2-1.3); Blood Urea Nitrogen 12 mg/dL (9-20); Calcium 9.1 mg/dL (8.4-10.2); Carbon Dioxide 28 mmol/L (22-32); Chloride 101 mmol/L (98-107); Creatine Kinase 50 U/L (55-170); Estimated Glomerular Filt Rate > 60 mL/min (>60); Globulin 3.5 g/dL (1.7-4.1); Glucose 140 mg/dL (70-100); Lipase 248 U/L (23-300); Potassium 3.3 mmol/L (3.4-5.1); Sodium 138 mmol/L (137-145); Total Protein 8.2 g/dL (6.3-8.2)
[2024-08-21 00:26] LABS: HEMOLYSIS 69 (0-50)
[2024-08-21 00:37] LABS: Troponin I < 0.012 ng/mL (0.01-0.034)
--- NOTE | 2024-08-21 02:02 | PC.NURSE ---
Ok for po fluids per Dr. Xiong. Water provided and pt taking without difficulty.
[2024-08-21 02:05] LABS: Creatine Kinase 40 U/L (55-170)
[2024-08-21 02:11] LABS: D Dimer 332 ng/ml (<500)
[2024-08-21 02:17] LABS: NT-proBNP (BNP-Adult 18+) 22 pg/mL (<125); Troponin I < 0.012 ng/mL (0.01-0.034)
--- NOTE | 2024-08-21 02:54 | DI.CT.S_ITS ---
PROCEDURE: CT CHEST W CON INDICATIONS: left sided pain after fall TECHNIQUE: After the administration of intravenous contrast, 5 mm thick sections acquired from the pulmonary apices to the posterior costophrenic angles. 1 mm axial lung, 5 mm thick coronal and sagittal reformats and 7 mm axial MIP were acquired. For radiation dose reduction, the following was used: automated exposure control, adjustment of mA and/or kV according to patient size. COMPARISON: [facility], CT, CT CHEST WO [facility], 09/12/2023, 8:20. FINDINGS: Image quality: Diagnostic Lungs and pleura: No airspace consolidation or pleural effusions. Tiny fissural nodules likely lymph nodes and micro nodules are stable. No pneumothorax or hemothorax. No pulmonary contusion Mediastinum, heart, and esophagus: No hiatal hernia. Normal heart size. Trace pericardial fluid or thickening. Coronary calcifications. No pathologic lymph nodes by size criteria. Chest wall and thyroid: Unremarkable Upper abdomen: Cholecystectomy clips. Bones: Left 11th rib fracture, possibly present on prior. No other displaced fracture is seen. No acute displaced fracture or traumatic subluxation of the thoracic spine IMPRESSION: Left posterior 11th rib fracture is seen. This may have been present on 2022 imaging. No acute thoracic abnormality otherwise. Agree with prelim report. Dictated by: Arnol Lora M.D. on 08/21/2024 at 8:10 Approved by: Arnol Lora M.D. on 08/21/2024 at 8:16
[2024-08-21] MEDS: HYDROCODONE/ACET 5/325 TABLET 1 TAB PO (03:04)
== END 2024-08-21 06:17 | disposition home or self-care (01) ==
PROVIDERS: Emergency Provider Emergency Medicine; PCP Nurse Practitioner Family
DX: S22.32XA Fracture of one rib, left side, initial encounter for closed fracture (principal); R06.02 Shortness of breath; R07.9 Chest pain, unspecified; Z79.01 Long term (current) use of anticoagulants
CPT/HCPCS: 36415; 71045; 71260; 80053; 82550; 83690; 83880; 84484; 85025; 85379; 93005; 99284; Q9967

== ENCOUNTER 2024-08-22 12:46 | Emergency (ER) | payer MEDICARE, MEDICAID, SELFPAY ==
[2024-08-22] VITALS (16 sets, daily range): BP systolic 121–149; BP diastolic 66–93; PULSE 69–175; RESP 14–25; TEMP 36.4; O2SAT 92–100; BMI 28.2
--- NOTE | 2024-08-22 12:57 | ED.GENADULT ---
HPI - General Adult General Chief complaint: Arrhythmia/Palpitations Stated complaint: AFIB Time Seen by Provider: 08/22/24 12:57 History of Present Illness HPI narrative: 54-year-old gentleman with a history of hypertension, chronic pain, paroxysmal atrial fibrillation anticoagulated on Xarelto, alcohol use disorder who presents in atrial fibrillation with rapid ventricular response that is started at 12:15 p.m.. He describes chest pain, pressure and dyspnea. He has been cardioverted once before did have an episode once that is spontaneously resolved. 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 He is very clear that he has been taking his diltiazem as well as his Xarelto. In looking through [place] records I see no cardiology visits, in looking through [facility] records there are some nurse practitioner visits there is an indication of some type of contact with Dr. Cruz as well as Dr. Vivar no notes from them within the last year and a half. The majority of his visits are related to his neck pain and referrals to spine clinics and pain clinics. Most recent echocardiogram was October of this year showing normal left ventricular size and wall motion with ejection fraction 55-60%. Related Data Home Medications Medication Instructions Recorded Confirmed aspirin 325 mg tablet 325 mg PO DAILY 11/01/23 11/01/23 diltiazem HCl 180 mg 180 mg PO DAILY 11/01/23 11/01/23 capsule,extended release 24 hr tiotropium 2.5 mcg-olodaterol 2.5 2 puff inhalation DAILY 11/01/23 11/01/23 mcg/actuation mist for inhalation Previous Rx's Medication Instructions Recorded albuterol sulfate 90 mcg/actuation 2 puff inhalation Q4-6H PRN 04/30/22 aerosol inhaler shortness of breath or wheezing #8.5 grams prednisone 20 mg tablet 20 mg PO DAILY #10 tabs 11/01/23 rivaroxaban 20 mg tablet (Xarelto) 20 mg PO DAILY #30 tabs 05/31/24 oxycodone-acetaminophen 5 mg-325 1 tab PO Q6H PRN pain #14 tabs 08/12/24 mg tablet hydrocodone 5 mg-acetaminophen 325 1 tab PO Q6H PRN pain #10 tabs 08/21/24 mg tablet hydrocodone 5 mg-acetaminophen 325 1 tab PO Q6H PRN pain #8 tabs 08/21/24 mg tablet amiodarone 200 mg tablet 200 mg PO BID #42 tabs 08/22/24 Allergies Allergy/AdvReac Type Severity Reaction Status Date / Time No Known Drug Allergies Allergy Verified 11/01/23 15:09 Review of Systems Review of Systems Narrative: Pertinent positive and negative findings as per HPI Patient History Medical History Ureterolithiasis Paroxysmal atrial fibrillation Breathing-related sleep disorder Erythrocytosis Smoking Surgical History History of cholecystectomy Family History Family/Other Loud snoring Obesity Hypertension Heart disease Depression Anxiety Father Alcohol abuse Mother Loud snoring Sleep apnea Obesity Hypertension Diabetes mellitus Depression Anxiety Alcohol abuse Family/Other Depression Anxiety Social History Smoking Status: Current every day smoker alcohol intake: current substance use type: marijuana Smoking Status: Current every day smoker tobacco type: cigarettes alcohol intake frequency: 3 or more drinks per day Alcohol type: beer and hard liquor Substance Use Type: does not use Exam Initial Vital Signs Initial Vital Signs: Vital Signs Pulse Rate 69 08/22/24 12:50 Pulse Oximetry 97 08/22/24 12:50 General: Groomed, appropriate, able to give a complete and coherent history HEENT: Moist mucous membranes, normal sclera with reactive pupils, Respiratory: Lungs are clear to auscultation, no wheezing no rales no rhonchi. Full and symmetrical air movement Cardiac: Tachycardic Abdomen: Soft, nontender, Skin: Warm and dry, no rashes Neurologic: Grossly neurologically intact with movement of all extremities Extremities: No trauma, well perfused Psych: Cooperative, appropriate insight and affect Procedures Cardioversion Time of Cardioversion: 14:53 Consent Signed: Yes Indication: Atrial fibrillation, rapid ventricular response, chest pain, known paroxysmal atrial fibrillation and anticoagulated on Xarelto Stability: Unstable Number of attempts (shocks): 1 Joules used: 200 Cardiac rhythm post-cardioversion: Sinus rhythm for approximately 2 minutes than spread back up and went back Additional Comments: Patient was given an additional 40 mg of propofol to make sure that he remains sedated enough for a 2nd shock. He was shocked again 200 joules, synchronized. He again converted to sinus rhythm and was given 150 mg IV amiodarone. He remains in sinus rhythm at this time Procedural Sedation Time of procedure: 14:55 Consent signed: Yes Time out performed: Yes Indication: cardioversion ASA Class: III Mallampati Airway Classification: Class III Preparation: monitoring manager applied, pulse oximeter, capnometry used, supplemental O2 applied, suction/airway equipment at bedside and IV secured IV Propofol dose (mg): 140 Intraservice time/total sedation time (min): 14 ED Sedation Level: Moderate (Concious) Patient Tolerated Procedure: Well Additional Comments: Patient was beginning to arouse after the 100 mg of propofol given for the initial shock. He then went back into atrial fibrillation. He was given 40 more mg of propofol and shocked again. Course Orders Ordered: ED Orders 08/22/24 12:57 Complete Blood Count AUTO DIFF Stat Comprehensive Metabolic Panel Stat Ethanol (ETOH) Stat NT-proBNP (BNP-Adult 18+) Stat Troponin I Stat 08/22/24 12:59 XR chest 1V Stat EKG-12 Lead Stat 08/22/24 13:38 EKG-12 Lead Stat Discontinued Medications Amiodarone HCl/Dextrose (Nexterone) 150 mg in 100 mls @ 600 mls/hr IV NOW ONE; Protocol Stop: 08/22/24 13:58 Last Infusion: 08/22/24 13:36 Dose: Infused Documented By: Admin: 08/22/24 13:25 Dose: 600 mls/hr Documented By: FLOWER Propofol (Propofol 200 Mg/20 Ml Vial) 200 mg 2 mg/kg (200 mg) IV NOW ONE Stop: 08/22/24 13:07 Last Admin: 08/22/24 13:16 Dose: 140 mg Documented By: FLOWER Vital Signs Vital signs: Vital Signs - 8 hr 08/22/24 12:50 08/22/24 12:53 08/22/24 12:55 Temperature 97.6 F Pulse Rate 69 175 H Respiratory Rate 25 H Blood Pressure 130/78 130/78 Pulse Oximetry 97 100 Oxygen Delivery Method Room Air 08/22/24 12:55 08/22/24 13:00 08/22/24 13:05 Temperature Pulse Rate 170 H 168 H 170 H Respiratory Rate 25 H 21 18 Blood Pressure Pulse Oximetry 97 96 97 Oxygen Delivery Method 08/22/24 13:05 08/22/24 13:20 08/22/24 13:20 Temperature Pulse Rate 96 H Respiratory Rate 22 Blood Pressure 149/80 H 123/66 Pulse Oximetry 93 Oxygen Delivery Method 08/22/24 13:25 08/22/24 13:25 08/22/24 13:30 Temperature Pulse Rate 94 H Respiratory Rate 19 Blood Pressure 126/75 124/78 Pulse Oximetry 92 Oxygen Delivery Method 08/22/24 13:30 08/22/24 13:35 08/22/24 13:35 Temperature Pulse Rate 90 82 Respiratory Rate 14 15 Blood Pressure 121/77 Pulse Oximetry 93 Oxygen Delivery Method 08/22/24 13:40 08/22/24 13:40 08/22/24 13:45 Temperature Pulse Rate 78 78 Respiratory Rate 15 17 Blood Pressure 124/81 Pulse Oximetry 93 93 Oxygen Delivery Method 08/22/24 13:45 08/22/24 14:00 08/22/24 14:00 Temperature Pulse Rate 80 Respiratory Rate 19 Blood Pressure 129/85 140/89 Pulse Oximetry 92 Oxygen Delivery Method 08/22/24 14:15 08/22/24 14:15 08/22/24 14:30 Temperature Pulse Rate 77 77 Respiratory Rate 14 18 Blood Pressure 143/93 H Pulse Oximetry 94 94 Oxygen Delivery Method 08/22/24 14:30 08/22/24 14:45 08/22/24 14:45 Temperature Pulse Rate 78 Respiratory Rate 18 Blood Pressure 148/89 H 141/86 H Pulse Oximetry 93 Oxygen Delivery Method 08/22/24 15:00 08/22/24 15:00 Temperature Pulse Rate 80 Respiratory Rate 15 Blood Pressure 137/88 Pulse Oximetry 96 Oxygen Delivery Method Medical Decision Making Lab Data 08/22/24 12:57 08/22/24 12:57 Labs: Lab Results 08/22/24 Range/Units 12:57 WBC 8.7 (4.5-11.0) X10^3/uL RBC 5.36 (4.5-5.9) X10^6/uL Hgb 17.5 (13.5-17.5) g/dL Hct 50.7 (41-53) % MCV 94.6 (80-100) fL MCH 32.6 (26-34) PG MCHC 34.5 (30-36) % RDW 12.7 (11.6-14.8) % Plt Count 210 (150-400) X10^3/uL Neut % (Auto) 44.7 L (50-75) % Lymph % (Auto) 40.5 H (25-40) % [place] % (Auto) 12.2 (3-14) % Eos % (Auto) 1.1 L (2-4) % Baso % (Auto) 1.5 (0-2) % Neut # (Auto) 3900 (8103-6457) /uL Lymph # (Auto) 3500 (7857-0088) /uL [place] # (Auto) 1100 H (0-900) /uL Eos # (Auto) 100 (0-450) /uL Baso # (Auto) 100 (0-100) /uL Sodium 134 L (137-145) mmol/L Potassium 3.5 (3.4-5.1) mmol/L Chloride 106 (98-107) mmol/L Carbon Dioxide 16 L (22-32) mmol/L BUN 8 L (9-20) mg/dL Creatinine 0.63 L (0.66-1.25) mg/dL Estimated GFR > 60 (>60) mL/min BUN/Creatinine Ratio 12.7 (6-22) Glucose 124 H (70-100) mg/dL Calcium 9.1 (8.4-10.2) mg/dL Total Bilirubin 1.2 (0.2-1.3) mg/dL AST 47 (17-59) IU/L ALT 50 H (<50) IU/L Alkaline Phosphatase 64 (38-126) U/L Troponin I < 0.012 (0.01-0.034) ng/mL NT-Pro-B Natriuret Pep 40 (<125) pg/mL Total Protein 7.7 (6.3-8.2) g/dL Albumin 4.6 (3.5-5.0) g/dL Globulin 3.1 (1.7-4.1) g/dL Albumin/Globulin Ratio 1.5 (1.0-2.8) Ethyl Alcohol 10 ( - 10) mg/dL MDM Narrative Medical decision making narrative: CC: Atrial fibrillation rapid ventricular response with chest pain Complicating co-morbidities: Anticoagulated on Xarelto, currently on diltiazem, chronic neck pain alcohol use disorder Data collected from: patient Medical records reviewed: Reviewed recent ER visits, patient has had multiple falls recently. Reviewed records from [facility] and I did not find a cardiology note. There were some nurse practitioner follow up notes indicating he needed to continue his diltiazem and Xarelto. His focused clearly has been on his neck pain, seeking neurosurgical consultation and pain clinic consultation Differential considered: Paroxysmal AFib with rapid ventricular response, PE, acute coronary syndrome, alcohol cardiomyopathy Exam documented above, pertinent findings include: Patient is alert and appropriate. He has not diaphoretic he is complaining of chest pain he is tachycardic Lab Test results independently reviewed as above. Pertinent findings: CBC is unremarkable Chemistries do not show acute electrolyte or renal abnormalities. AST and ALT are less than they were when checked 2 days ago Troponin is undetected BNP is undetected Independently reviewed EKG: Atrial fibrillation at a rate of 168 After cardioversion x2 sinus rhythm at a rate of 80, in complaint right bundle branch block Imaging studies independently reviewed: Chest x-ray shows no acute finding Consultations: Dr. Arellano, cardiology. Her recommendation was to try an amiodarone taper 200 mg b.i.d. for 2 weeks, 200 mg daily for 2 weeks and then discontinue. His last appointment with Cardiology looks to have been in July of 2021 which is greater than 3 years ago which means he likely will be a new patient. She will send a secure chat to his nurse practitioner, Henrique to see if she will initiate a Cardiology referral. We will ask the patient to schedule an appointment for Cardiology follow up for his recurrent atrial fibrillation Treatments: Cardioversion, 150 mg IV amiodarone Re-evaluations: Patient was feeling much better. Reviewed all findings Discussion: 54-year-old gentleman with known paroxysmal atrial fibrillation anticoagulated on diltiazem presents in rapid AFib with chest pain that is progressively getting worse. He went into the rapid rhythm at 12:15 p.m. this afternoon. Because of the increasing chest pain decision was made to move directly to cardioversion. First cardioversion was successful however he rapidly returned to sinus rhythm. He was cardioverted a 2nd time and given amiodarone and has stayed in sinus rhythm this point labs are reassuring with no evidence of heart failure, elevated troponin, electrolyte abnormalities. Chest x-ray is unremarkable. In discussion with Cardiology, we will send him home on amiodarone 200 mg b.i.d. for 2 weeks then 200 daily. Patient is agreeable to this. 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 At this point he is safe for discharge Discharge Plan Departure Patient Disposition: Home Clinical Impression: Paroxysmal atrial fibrillation Instructions: DI for Atrial Fibrillation Activity Restrictions/Additional Instructions: Thank you for coming in today The fact that you knew exactly when it started and you have consistently been taking your Xarelto makes it very easy to choose to cardiovert you. Because you were going so fast and having chest pain, we did cardiovert you early in your ER visit. The 1st time worked for about 2 minutes. The 2nd time we followed with an IV dose of amiodarone. Amiodarone is a medicine that helps keep your heart in sinus rhythm. After talking with our on-call band cutting machine operator, recommendation is to continue amiodarone, 200 mg twice a day for 2 weeks then 100 mg daily for 2 weeks and then discontinue. You need to make sure that you continue the diltiazem as well as your Xarelto This new prescription has been electronically transmitted to [facility] You do need follow up with your band cutting machine operator. The last time you saw Dr. Choudhury was July of 2021. We are contacting your primary nurse practitioner, Henrique to ask her to initiate a referral to get you back into Cardiology. Please call [facility], the [place] office line is [phone] to schedule an appointment with Dr. Choudhury to follow up with your paroxysmal atrial fibrillation Today's evaluation does not show any evidence of heart failure, heart attack, significant electrolyte abnormalities or infection. At this point it is safe for you to go home. If you find that you are getting worse or develop any new symptoms, please feel free to return to the emergency department for further evaluation. Prescriptions: New amiodarone 200 mg tablet 200 mg PO BID Qty: 42 0RF Rx Instructions: 200mg BID x 14 days, then 200 Daily for 14 days No Action Xarelto 20 mg tablet 20 mg PO DAILY Qty: 30 0RF Rx Instructions: must administer with evening meal albuterol sulfate 90 mcg/actuation HFA aerosol inhaler 2 puff INHALATION Q4-6H PRN (Reason: shortness of breath or wheezing) Qty: 8.5 0RF oxycodone-acetaminophen 5-325 mg tablet 1 tab PO Q6H PRN (Reason: pain) Qty: 14 0RF hydrocodone-acetaminophen 5-325 mg tablet 1 tab PO Q6H PRN (Reason: pain) Qty: 8 0RF hydrocodone-acetaminophen 5-325 mg tablet 1 tab PO Q6H PRN (Reason: pain) Qty: 10 0RF diltiazem HCl 180 mg capsule,extended release 24hr 180 mg PO DAILY tiotropium-olodaterol 2.5-2.5 mcg/actuation mist 2 puff inhalation DAILY aspirin 325 mg tablet 325 mg PO DAILY prednisone 20 mg tablet 20 mg PO DAILY Qty: 10 0RF Rx Instructions: Take 2 tabs every day for 5 days Referrals: Salome Duenas ARNP [Primary Care Provider] - Stand Alone Forms: Patient Portal/API/Survey
--- NOTE | 2024-08-22 12:59 | DI.RAD.S_ITS ---
PROCEDURE: XR CHEST 1V INDICATIONS: chest pain TECHNIQUE: One view of the chest was acquired. COMPARISON: [facility], CR, XR CHEST 1V, 08/20/2024, 23:58. [facility], CR, XR CHEST 1V, 08/12/2024, 7:47. FINDINGS: Surgical changes and devices: None. Lungs and pleura: Lungs are clear. No pleural effusions or pneumothorax. Mediastinum: Mediastinal contours appear normal. Heart size is normal. Bones and chest wall: No suspicious bony lesions. Overlying soft tissues appear unremarkable. IMPRESSION: No acute cardiopulmonary abnormality is seen. Dictated by: Da Carmona M.D. on 08/22/2024 at 13:26 Approved by: Da Carmona M.D. on 08/22/2024 at 13:28
--- NOTE | 2024-08-22 13:03 | EKG_ITS ---
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
[2024-08-22 13:05] LABS: Add Manual Diff / Slide Review NO; Basophils Absolute Auto 100 /uL (0-100); Basophils Percent Auto 1.5 % (0-2); Eosinophils Absolute Auto 100 /uL (0-450); Eosinophils Percent Auto 1.1 % (2-4); Hematocrit 50.7 % (41-53); Hemoglobin 17.5 g/dL (13.5-17.5); Lymphocytes Absolute Auto 3500 /uL (1100-4500); Lymphocytes Percent Auto 40.5 % (25-40); Mean Corpuscular HGB Conc 34.5 % (30-36); Mean Corpuscular Hemoglobin 32.6 PG (26-34); Mean Corpuscular Volume 94.6 fL (80-100); Monocytes Absolute Auto 1100 /uL (0-900); Monocytes Percent Auto 12.2 % (3-14); Neutrophils Absolute Auto 3900 /uL (1500-7000); Neutrophils Percent Auto 44.7 % (50-75); Platelet Count 210 X10^3/uL (150-400); Red Blood Cell Count 5.36 X10^6/uL (4.5-5.9); Red Cell Distribution Width 12.7 % (11.6-14.8); White Blood Cell Count 8.7 X10^3/uL (4.5-11.0)
[2024-08-22] MEDS: propofoL 200 MG/20 ML VIAL IV (13:16)
[2024-08-22 13:17] LABS: Alanine Aminotransferase 50 IU/L (<50); Albumin 4.6 g/dL (3.5-5.0); Albumin Globulin Ratio 1.5 (1.0-2.8); Alkaline Phosphatase 64 U/L (38-126); Aspartate Aminotransferase 47 IU/L (17-59); BUN Creatinine Ratio 12.7 (6-22); Bilirubin Total 1.2 mg/dL (0.2-1.3); Blood Urea Nitrogen 8 mg/dL (9-20); Calcium 9.1 mg/dL (8.4-10.2); Carbon Dioxide 16 mmol/L (22-32); Chloride 106 mmol/L (98-107); Estimated Glomerular Filt Rate > 60 mL/min (>60); Ethanol (ETOH) 10 mg/dL; Globulin 3.1 g/dL (1.7-4.1); Glucose 124 mg/dL (70-100); HEMOLYSIS < 15 (0-50); Potassium 3.5 mmol/L (3.4-5.1); Sodium 134 mmol/L (137-145); Total Protein 7.7 g/dL (6.3-8.2)
[2024-08-22] MEDS: AMIODARONE 150 MG/100 ML PIGGYBACK 600 MG IV (13:25)
[2024-08-22 13:28] LABS: NT-proBNP (BNP-Adult 18+) 40 pg/mL (<125); Troponin I < 0.012 ng/mL (0.01-0.034)
--- NOTE | 2024-08-22 13:38 | EKG_ITS ---
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
== END 2024-08-22 15:57 | disposition home or self-care (01) ==
PROVIDERS: Emergency Provider Emergency Medicine; PCP Nurse Practitioner Family
DX: I48.0 Paroxysmal atrial fibrillation (principal); Z79.01 Long term (current) use of anticoagulants
CPT/HCPCS: 36415; 71045; 80053; 80320; 83880; 84484; 85025; 92960; 93005; 96374; 99152; 99284; 99285; J0282; J2704

== ENCOUNTER 2024-11-18 02:56 | Emergency (ER) | payer MEDICARE, MEDICAID, SELFPAY ==
[2024-11-18] VITALS (19 sets, daily range): BP systolic 112–158; BP diastolic 58–94; PULSE 87–126; RESP 15–32; TEMP 36.9; O2SAT 94–99; BMI 27.6
--- NOTE | 2024-11-18 02:56 | DI.RAD.S_ITS ---
PROCEDURE: XR CHEST 1V INDICATIONS: chest pain TECHNIQUE: One view of the chest was acquired. COMPARISON: [facility], CR, XR CHEST 1V, 08/22/2024, 13:01. [facility], CR, XR CHEST 1V, 08/20/2024, 23:58. FINDINGS: Surgical changes and devices: None. Lungs and pleura: Lungs are clear. No pleural effusions or pneumothorax. Mediastinum: Mediastinal contours appear normal. Heart size is normal. Bones and chest wall: No suspicious bony lesions. Overlying soft tissues appear unremarkable. IMPRESSION: No acute cardiopulmonary abnormality is seen. Findings are concordant with preliminary interpretation provided by [facility]. Dictated by: Raymond Arechiga M.D. on 11/18/2024 at 8:40 Approved by: Raymond Arechiga M.D. on 11/18/2024 at 8:40
--- NOTE | 2024-11-18 03:01 | EKG_ITS ---
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
--- NOTE | 2024-11-18 03:11 | ED_ITS ---
HPI - Arrhythmia/Palpitations <Hill Avila MD - Last Filed: 11/18/24 16:43> General Chief Complaint: Arrhythmia/Palpitations Stated Complaint: palpitations Time Seen by Provider: 11/18/24 03:02 Source: patient and EMS Mode of arrival: EMS History of Present Illness HPI narrative: 54-year-old male with history of atrial fibrillation, takes Xarelto chronic anticoagulation, previously on amiodarone but no longer taking, followed by cardiology Dr. Vivar, has had prior cardioversion experiences, felt like he had palpitations and atrial fibrillation earlier this morning. He also has had recent nosebleeds, stopped Xarelto last dose yesterday. Related Data Home Medications Medication Instructions Recorded Confirmed aspirin 325 mg tablet 325 mg PO DAILY 11/01/23 11/01/23 diltiazem HCl 180 mg 180 mg PO DAILY 11/01/23 11/01/23 capsule,extended release 24 hr tiotropium 2.5 mcg-olodaterol 2.5 2 puff inhalation DAILY 11/01/23 11/01/23 mcg/actuation mist for inhalation Previous Rx's Medication Instructions Recorded albuterol sulfate 90 mcg/actuation 2 puff inhalation Q4-6H PRN 04/30/22 aerosol inhaler shortness of breath or wheezing #8.5 grams prednisone 20 mg tablet 20 mg PO DAILY #10 tabs 11/01/23 rivaroxaban 20 mg tablet (Xarelto) 20 mg PO DAILY #30 tabs 05/31/24 oxycodone-acetaminophen 5 mg-325 1 tab PO Q6H PRN pain #14 tabs 08/12/24 mg tablet hydrocodone 5 mg-acetaminophen 325 1 tab PO Q6H PRN pain #10 tabs 08/21/24 mg tablet hydrocodone 5 mg-acetaminophen 325 1 tab PO Q6H PRN pain #8 tabs 08/21/24 mg tablet amiodarone 200 mg tablet 200 mg PO BID #42 tabs 08/22/24 ondansetron 4 mg disintegrating 4 mg PO Q8H PRN nausea and 11/18/24 tablet vomiting #10 tabs Allergies Allergy/AdvReac Type Severity Reaction Status Date / Time No Known Drug Allergies Allergy Verified 11/01/23 15:09 Patient History <Hill Avila MD - Last Filed: 02/18/25 16:43> Medical History Ureterolithiasis Paroxysmal atrial fibrillation Breathing-related sleep disorder Erythrocytosis Smoking Surgical History History of cholecystectomy Family History Family/Other Loud snoring Obesity Hypertension Heart disease Depression Anxiety Father Alcohol abuse Mother Loud snoring Sleep apnea Obesity Hypertension Diabetes mellitus Depression Anxiety Alcohol abuse Family/Other Depression Anxiety Social History Smoking Status: Current every day smoker alcohol intake: current substance use type: marijuana Smoking Status: Current every day smoker tobacco type: cigarettes alcohol intake frequency: 3 or more drinks per day Alcohol type: beer and hard liquor Exam <Hill Avila MD - Last Filed: 11/18/24 16:43> Narrative Exam Narrative: GENERAL: Well-developed patient, in mild distress. HEAD: Atraumatic. Normocephalic. EYES: Pupils equal round and reactive. Extraocular motions intact. No scleral icterus. No injection or drainage. ENT: Nose without bleeding, purulent drainage. Throat without erythema, tonsillar hypertrophy or exudate. Airway patent. NECK: Trachea midline. Non tender CARDIOVASCULAR: Regular rate and rhythm without murmurs, gallops, or rubs. RESPIRATORY: Clear to auscultation. Breath sounds equal bilaterally. No wheezes, rales, or rhonchi. GASTROINTESTINAL: Abdomen soft, non-tender, nondistended. EXTREMITIES: No edema or joint tenderness. BACK: Nontender without deformity or crepitance. No flank tenderness. NEURO: AOx3. Motor functions grossly nonfocal SKIN: No rash or erythema of visible areas Initial Vital Signs Initial Vital Signs: Vital Signs Pulse Rate 102 H 11/18/24 03:00 Respiratory Rate 17 11/18/24 03:00 Blood Pressure 124/85 11/18/24 03:00 Pulse Oximetry 97 11/18/24 03:00 <Siobhan Xiong DO - Last Filed: 11/18/24 16:23> Initial Vital Signs Initial Vital Signs: Vital Signs Pulse Rate 102 H 11/18/24 03:00 Respiratory Rate 17 11/18/24 03:00 Blood Pressure 124/85 11/18/24 03:00 Pulse Oximetry 97 11/18/24 03:00 Course <Hill Avila MD - Last Filed: 11/18/24 16:43> Orders Ordered: ED Orders 11/18/24 08:05 EKG-12 Lead Stat Discontinued Medications Diltiazem HCl (Diltiazem 25 Mg/5 Ml Sdv) 10 mg IV NOW ONE Stop: 11/18/24 08:02 Last Admin: 11/18/24 08:13 Dose: Not Given Documented By: MPO POTASSIUM CHLORIDE IN WATER (Potassium Cl 10 Meq/100 Ml Andie) 10 meq in 100 mls @ 100 mls/hr IV Q1H STARLA Stop: 11/18/24 05:59 Last Infusion: 11/18/24 06:07 Dose: Infused Documented By: Admin: 11/18/24 05:06 Dose: 100 mls/hr Documented By: Infusion: 11/18/24 05:05 Dose: Infused Documented By: Admin: 11/18/24 04:02 Dose: 100 mls/hr Documented By: Phenobarbital (Phenobarbital 65 Mg/Ml Vial) 130 mg IV NOW ONE Stop: 11/18/24 08:08 Last Admin: 11/18/24 08:12 Dose: 130 mg Documented By: BRADLY Vital Signs Vital signs: Vital Signs - 8 hr 11/18/24 09:00 11/18/24 09:00 11/18/24 09:30 Pulse Rate 92 H 92 H Respiratory Rate 18 18 Blood Pressure 116/77 Pulse Oximetry 96 95 11/18/24 09:30 11/18/24 09:35 11/18/24 09:35 Pulse Rate 95 H Respiratory Rate 16 Blood Pressure 112/72 116/85 Pulse Oximetry 94 <Siobhan Xiong DO - Last Filed: 11/18/24 16:23> Orders Ordered: ED Orders 11/18/24 08:05 EKG-12 Lead Stat Discontinued Medications Diltiazem HCl (Diltiazem 25 Mg/5 Ml Sdv) 10 mg IV NOW ONE Stop: 11/18/24 08:02 Last Admin: 11/18/24 08:13 Dose: Not Given Documented By: BRADLY POTASSIUM CHLORIDE IN WATER (Potassium Cl 10 Meq/100 Ml Andie) 10 meq in 100 mls @ 100 mls/hr IV Q1H STARLA Stop: 11/18/24 05:59 Last Infusion: 11/18/24 06:07 Dose: Infused Documented By: Admin: 11/18/24 05:06 Dose: 100 mls/hr Documented By: Infusion: 11/18/24 05:05 Dose: Infused Documented By: Admin: 11/18/24 04:02 Dose: 100 mls/hr Documented By: Phenobarbital (Phenobarbital 65 Mg/Ml Vial) 130 mg IV NOW ONE Stop: 11/18/24 08:08 Last Admin: 11/18/24 08:12 Dose: 130 mg Documented By: BRADLY Vital Signs Vital signs: Vital Signs - 8 hr 11/18/24 09:00 11/18/24 09:00 11/18/24 09:30 Pulse Rate 92 H 92 H Respiratory Rate 18 18 Blood Pressure 116/77 Pulse Oximetry 96 95 11/18/24 09:30 11/18/24 09:35 11/18/24 09:35 Pulse Rate 95 H Respiratory Rate 16 Blood Pressure 112/72 116/85 Pulse Oximetry 94 MDM - Arrhythmia/Palpitations <Hill Avila MD - Last Filed: 11/18/24 16:43> Lab Data Attestation: I reviewed the patient's lab results. Lab results narrative: White blood cell count 68285, hemoglobin 19.3 elevated, platelets adequate. Sodium 133 with glucose 120, BUN 19 with creatinine 0.88, serum CO2 decreased at 12. Sodium 133, potassium 3.3, chloride 98 noted. Liver functions mildly increased, lipase normal. 11/18/24 02:45 11/18/24 06:47 Labs: Lab Results 11/18/24 11/18/24 11/18/24 Range/Units 02:45 06:47 07:08 WBC 10.3 (4.5-11.0) X10^3/uL RBC 5.81 (4.5-5.9) X10^6/uL Hgb 19.3 H (13.5-17.5) g/dL Hct 54.3 H (41-53) % MCV 93.4 (80-100) fL MCH 33.1 (26-34) PG MCHC 35.5 (30-36) % RDW 13.0 (11.6-14.8) % Plt Count 170 (150-400) X10^3/uL Neut % (Auto) 48.8 L (50-75) % Lymph % (Auto) 38.2 (25-40) % [place] % (Auto) 11.2 (3-14) % Eos % (Auto) 0.4 L (2-4) % Baso % (Auto) 1.4 (0-2) % Neut # (Auto) 5000 (7025-0665) /uL Lymph # (Auto) 3900 (7979-6323) /uL [place] # (Auto) 1200 H (0-900) /uL Eos # (Auto) 0 (0-450) /uL Baso # (Auto) 100 (0-100) /uL Sodium 133 L 132 L (137-145) mmol/L Potassium 3.3 L 3.7 (3.4-5.1) mmol/L Chloride 98 100 (98-107) mmol/L Carbon Dioxide 12 L 15 L (22-32) mmol/L BUN 19 19 (9-20) mg/dL Creatinine 0.88 0.62 L (0.66-1.25) mg/dL Estimated GFR > 60 > 60 (>60) mL/min BUN/Creatinine Ratio 21.6 30.6 H (6-22) Glucose 120 H 98 (70-100) mg/dL Lactate 1.3 (0.7-2.1) mmol/L Calcium 9.4 8.8 (8.4-10.2) mg/dL Magnesium 2.1 (1.6-2.3) mg/dL Total Bilirubin 2.0 H 1.9 H (0.2-1.3) mg/dL AST 110 H 99 H (17-59) IU/L ALT 100 H 85 H (<50) IU/L Alkaline Phosphatase 63 54 (38-126) U/L Total Creatine Kinase 48 L (55-170) U/L Troponin I < 0.012 < 0.012 (0.01-0.034) ng/mL NT-Pro-B Natriuret Pep 49 (<125) pg/mL Total Protein 9.0 H 7.4 (6.3-8.2) g/dL Albumin 5.3 H 4.5 (3.5-5.0) g/dL Globulin 3.7 2.9 (1.7-4.1) g/dL Albumin/Globulin Ratio 1.4 1.6 (1.0-2.8) Lipase 225 (23-300) U/L ECG Data Attestation: I personally reviewed and interpreted this ECG as follows: Interpretation: Sinus rhythm with premature atrial complexes, no obvious ST segment elevation or depression changes. CO 162, QRS 88, QTC 474. MDM Narrative Medical decision making narrative: 54-year-old male with history of atrial fibrillation, taking Xarelto anticoagulation, previously prescribed amiodarone no longer taking, felt like he went into atrial fibrillation overnight. Now he feels better after riding in the ambulance, no specific treatment during transport. He has nosebleed problems, has held his Xarelto dose since yesterday. He denies fevers or chills. Denies cough shortness of breath. Potassium 3.3 low, IV potassium. Liver functions increased. BNP pending. Troponin negative. Chest x-ray. Impressions: ?No acute cardiopulmonary abnormality is identified. ? See teleradiology report 0630, BNP not elevated, liver functions elevation not likely due to passive congestion CHF, will check ultrasound right upper quadrant abdomen. Repeat troponin, will repeat CMP same draw Ultrasound right upper quadrant. Impressions: ?Hepatomegaly and hepatic steatosis. Status post cholecystectomy. ? See teleradiology report. 0700, Repeat CMP to be sent with interval troponin, results pending. Signed out to Dr Xiong. 0700 Dr. Xiong, patient signed out to me by Dr. Avila's seen evaluated patient myself. He was have elevated bilirubin liver enzymes which have down trended during his ED stay. Ultrasound shows hepatomegaly and hepatic steatosis status post cholecystectomy. Lactic acid within normal limits no leukocytosis he has no right upper quadrant pain. Patient is sitting at bedside eating. He says he feels shaky. He was not felt well for the last 3 days. He stopped taking his Xarelto because he was having bloody noses but generally was not feeling well. He typically drinks whiskey all day. He had not had any for a few days because he was not feeling well. He does report that he had a little bit last night. Suddenly his heart rate increased into the 120s but appeared sinus decreasing to 104 but still kind of shakey. I do think patient has some mild withdrawal symptoms. Given a dose of phenobarbital feeling much better heart rate improved. Never actually went into atrial fibrillation he was sinus tachycardic heart rate 103 no ischemia <Siobhan Xiong, DO - Last Filed: 11/18/24 16:23> Lab Data Labs: Lab Results 11/18/24 11/18/24 11/18/24 Range/Units 02:45 06:47 07:08 WBC 10.3 (4.5-11.0) X10^3/uL RBC 5.81 (4.5-5.9) X10^6/uL Hgb 19.3 H (13.5-17.5) g/dL Hct 54.3 H (41-53) % MCV 93.4 (80-100) fL MCH 33.1 (26-34) PG MCHC 35.5 (30-36) % RDW 13.0 (11.6-14.8) % Plt Count 170 (150-400) X10^3/uL Neut % (Auto) 48.8 L (50-75) % Lymph % (Auto) 38.2 (25-40) % [place] % (Auto) 11.2 (3-14) % Eos % (Auto) 0.4 L (2-4) % Baso % (Auto) 1.4 (0-2) % Neut # (Auto) 5000 (3537-1224) /uL Lymph # (Auto) 3900 (1032-6928) /uL [place] # (Auto) 1200 H (0-900) /uL Eos # (Auto) 0 (0-450) /uL Baso # (Auto) 100 (0-100) /uL Sodium 133 L 132 L (137-145) mmol/L Potassium 3.3 L 3.7 (3.4-5.1) mmol/L Chloride 98 100 (98-107) mmol/L Carbon Dioxide 12 L 15 L (22-32) mmol/L BUN 19 19 (9-20) mg/dL Creatinine 0.88 0.62 L (0.66-1.25) mg/dL Estimated GFR > 60 > 60 (>60) mL/min BUN/Creatinine Ratio 21.6 30.6 H (6-22) Glucose 120 H 98 (70-100) mg/dL Lactate 1.3 (0.7-2.1) mmol/L Calcium 9.4 8.8 (8.4-10.2) mg/dL Magnesium 2.1 (1.6-2.3) mg/dL Total Bilirubin 2.0 H 1.9 H (0.2-1.3) mg/dL AST 110 H 99 H (17-59) IU/L ALT 100 H 85 H (<50) IU/L Alkaline Phosphatase 63 54 (38-126) U/L Total Creatine Kinase 48 L (55-170) U/L Troponin I < 0.012 < 0.012 (0.01-0.034) ng/mL NT-Pro-B Natriuret Pep 49 (<125) pg/mL Total Protein 9.0 H 7.4 (6.3-8.2) g/dL Albumin 5.3 H 4.5 (3.5-5.0) g/dL Globulin 3.7 2.9 (1.7-4.1) g/dL Albumin/Globulin Ratio 1.4 1.6 (1.0-2.8) Lipase 225 (23-300) U/L ECG Data Interpretation: Sinus rhythm with premature atrial complexes, no obvious ST segment elevation or depression changes. CO 162, QRS 88, QTC 474. Repeat EKGs showed just tachycardia rate [address] changes similar to previous EKGs MDM Narrative Medical decision making narrative: 54-year-old male with history of atrial fibrillation, taking Xarelto anticoagulation, previously prescribed amiodarone no longer taking, felt like he went into atrial fibrillation overnight. Now he feels better after riding in the ambulance, no specific treatment during transport. He has nosebleed problems, has held his Xarelto dose since yesterday. He denies fevers or chills. Denies cough shortness of breath. Potassium 3.3 low, IV potassium. Liver functions increased. BNP pending. Troponin negative. Chest x-ray. Impressions: ?No acute cardiopulmonary abnormality is identified. ? See teleradiology report 0630, BNP not elevated, liver functions elevation not likely due to passive congestion CHF, will check ultrasound right upper quadrant abdomen. Repeat troponin, repeat CMP same draw Ultrasound right upper quadrant. Impressions: ?Hepatomegaly and hepatic steatosis. Status post cholecystectomy. ? See teleradiology report. 0700, Repeat CMP to be sent with interval troponin, results pending. Signed out to Dr Xiong. 0700 Dr. Xiong, patient signed out to me by Dr. Avila's seen evaluated patient myself. He was have elevated bilirubin liver enzymes which have down trended during his ED stay. Ultrasound shows hepatomegaly and hepatic steatosis status post cholecystectomy. Lactic acid within normal limits no leukocytosis he has no right upper quadrant pain. Patient is sitting at bedside eating. He says he feels shaky. He was not felt well for the last 3 days. He stopped taking his Xarelto because he was having bloody noses but generally was not feeling well. He typically drinks whiskey all day. He had not had any for a few days because he was not feeling well. He does report that he had a little bit last night. Suddenly his heart rate increased into the 120s but appeared sinus decreasing to 104 but still kind of shakey. I do think patient has some mild withdrawal symptoms. Given a dose of phenobarbital feeling much better heart rate improved. Never actually went into atrial fibrillation he was sinus tachycardic heart rate 103 no ischemia Discharge Plan Departure Patient Disposition: Home Clinical Impression: Palpitations, History of atrial fibrillation, Hypokalemia, Alcohol withdrawal Instructions: DI for Atrial Fibrillation, Alcohol Withdrawal Activity Restrictions/Additional Instructions: *You have been diagnosed with a paroxysmal atrial fibrillation, alcohol withdrawal *What to do: At this time it was recommended that if you choose to stop drinking alcohol you do it at a detox center under supervision. Continue to increase fluids , recommend Gatorade or Gatorade like product alcohol will dehydrate you *Continue to take medications as directed The blood thinner does help prevent strokes it was recommended that you take it Zofran 4 mg every 8 hours for nausea or vomiting *Follow up with your primary care provider in 2-3 days or call [phone] *Return to ER if you should have increasing chest pain nausea vomiting weakness [or] any new, worsening or concerning symptoms Prescriptions: New ondansetron 4 mg tablet,disintegrating 4 mg PO Q8H PRN (Reason: nausea and vomiting) Qty: 10 0RF No Action Xarelto 20 mg tablet 20 mg PO DAILY Qty: 30 0RF Rx Instructions: must administer with evening meal albuterol sulfate 90 mcg/actuation HFA aerosol inhaler 2 puff INHALATION Q4-6H PRN (Reason: shortness of breath or wheezing) Qty: 8.5 0RF oxycodone-acetaminophen 5-325 mg tablet 1 tab PO Q6H PRN (Reason: pain) Qty: 14 0RF hydrocodone-acetaminophen 5-325 mg tablet 1 tab PO Q6H PRN (Reason: pain) Qty: 8 0RF hydrocodone-acetaminophen 5-325 mg tablet 1 tab PO Q6H PRN (Reason: pain) Qty: 10 0RF amiodarone 200 mg tablet 200 mg PO BID Qty: 42 0RF Rx Instructions: 200mg BID x 14 days, then 200 Daily for 14 days diltiazem HCl 180 mg capsule,extended release 24hr 180 mg PO DAILY tiotropium-olodaterol 2.5-2.5 mcg/actuation mist 2 puff inhalation DAILY aspirin 325 mg tablet 325 mg PO DAILY prednisone 20 mg tablet 20 mg PO DAILY Qty: 10 0RF Rx Instructions: Take 2 tabs every day for 5 days Referrals: Salome Duenas ARNP [Primary Care Provider] - Stand Alone Forms: Patient Portal/API/Survey
[2024-11-18 03:16] LABS: Add Manual Diff / Slide Review NO; Basophils Absolute Auto 100 /uL (0-100); Basophils Percent Auto 1.4 % (0-2); Eosinophils Absolute Auto 0 /uL (0-450); Eosinophils Percent Auto 0.4 % (2-4); Hematocrit 54.3 % (41-53); Hemoglobin 19.3 g/dL (13.5-17.5); Lymphocytes Absolute Auto 3900 /uL (1100-4500); Lymphocytes Percent Auto 38.2 % (25-40); Mean Corpuscular HGB Conc 35.5 % (30-36); Mean Corpuscular Hemoglobin 33.1 PG (26-34); Mean Corpuscular Volume 93.4 fL (80-100); Monocytes Absolute Auto 1200 /uL (0-900); Monocytes Percent Auto 11.2 % (3-14); Neutrophils Absolute Auto 5000 /uL (1500-7000); Neutrophils Percent Auto 48.8 % (50-75); Platelet Count 170 X10^3/uL (150-400); Red Blood Cell Count 5.81 X10^6/uL (4.5-5.9); White Blood Cell Count 10.3 X10^3/uL (4.5-11.0)
[2024-11-18 03:18] LABS: Alanine Aminotransferase 100 IU/L (<50); Albumin 5.3 g/dL (3.5-5.0); Albumin Globulin Ratio 1.4 (1.0-2.8); Alkaline Phosphatase 63 U/L (38-126); Aspartate Aminotransferase 110 IU/L (17-59); BUN Creatinine Ratio 21.6 (6-22); Blood Urea Nitrogen 19 mg/dL (9-20); Calcium 9.4 mg/dL (8.4-10.2); Carbon Dioxide 12 mmol/L (22-32); Chloride 98 mmol/L (98-107); Creatine Kinase 48 U/L (55-170); Estimated Glomerular Filt Rate > 60 mL/min (>60); Globulin 3.7 g/dL (1.7-4.1); Glucose 120 mg/dL (70-100); HEMOLYSIS 18 (0-50); Lipase 225 U/L (23-300); Potassium 3.3 mmol/L (3.4-5.1); Sodium 133 mmol/L (137-145)
[2024-11-18 03:30] LABS: Troponin I < 0.012 ng/mL (0.01-0.034)
[2024-11-18] MEDS: POTASSIUM CHLORIDE IN WATER 10 MEQ/100 ML PIGGYBACK 100 MEQ IV ×2 (04:02→05:06)
[2024-11-18 04:24] LABS: Magnesium 2.1 mg/dL (1.6-2.3)
[2024-11-18 04:30] LABS: NT-proBNP (BNP-Adult 18+) 49 pg/mL (<125)
--- NOTE | 2024-11-18 05:28 | DI.US.S_ITS ---
PROCEDURE: US ABDOMEN LIMITED INDICATIONS: RUQ PAIN TECHNIQUE: Real-time scanning was performed of the abdominal and retroperitoneal organs, with image documentation. COMPARISON: Merged With [facility], , US ABDOMEN COMPLETE, 08/10/2023, 12:57. FINDINGS: Liver: Enlarged measuring 18.8 centimeters. Significantly increased in echogenicity. Gallbladder: Surgically absent. Biliary ducts: Not well seen secondary to steatotic liver. Pancreas: Not well seen. Miscellaneous: No free abdominal fluid. IMPRESSION: Hepatomegaly and significant hepatic steatosis. Status post cholecystectomy. Findings are concordant with preliminary interpretation provided by [facility]. Dictated by: Raymond Arechiga M.D. on 11/18/2024 at 8:42 Approved by: Raymond Arechiga M.D. on 11/18/2024 at 8:43
[2024-11-18 07:03] LABS: Alanine Aminotransferase 85 IU/L (<50); Albumin 4.5 g/dL (3.5-5.0); Albumin Globulin Ratio 1.6 (1.0-2.8); Alkaline Phosphatase 54 U/L (38-126); Aspartate Aminotransferase 99 IU/L (17-59); BUN Creatinine Ratio 30.6 (6-22); Bilirubin Total 1.9 mg/dL (0.2-1.3); Blood Urea Nitrogen 19 mg/dL (9-20); Calcium 8.8 mg/dL (8.4-10.2); Carbon Dioxide 15 mmol/L (22-32); Chloride 100 mmol/L (98-107); Estimated Glomerular Filt Rate > 60 mL/min (>60); Globulin 2.9 g/dL (1.7-4.1); Glucose 98 mg/dL (70-100); HEMOLYSIS < 15 (0-50); Potassium 3.7 mmol/L (3.4-5.1); Sodium 132 mmol/L (137-145); Total Protein 7.4 g/dL (6.3-8.2)
[2024-11-18 07:15] LABS: Troponin I < 0.012 ng/mL (0.01-0.034)
[2024-11-18 07:26] LABS: Lactate (Lactic Acid) 1.3 mmol/L (0.7-2.1)
--- NOTE | 2024-11-18 08:09 | EKG_ITS ---
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
[2024-11-18] MEDS: PHENobarbital 65 MG/ML VIAL 130 MG IV (08:12)
== END 2024-11-18 10:04 | disposition home or self-care (01) ==
PROVIDERS: Emergency Medicine; Emergency Provider Emergency Medicine; PCP Nurse Practitioner Family
DX: R00.2 Palpitations (principal); Z79.01 Long term (current) use of anticoagulants; I48.91 Unspecified atrial fibrillation; E87.6 Hypokalemia; F10.939 Alcohol use, unspecified with withdrawal, unspecified
CPT/HCPCS: 36415; 71045; 76705; 80053; 82550; 83605; 83690; 83735; 83880; 84484; 85025; 93005; 96365; 96366; 96375; 99284; J2560